=== PATIENT | female | born 1970 | race Caucasian/White ===

== ENCOUNTER 2019-02-04 12:23 | Outpatient (CLI) | payer BC ==
[~2019-02-04 12:23] MED LIST: DEXL60CA3 PO; DICY10CA88 PO; NITR100C6 PO; PHEN-716 PO; ZOF4T PO
== END 2019-02-04 23:59 | disposition home or self-care (01) ==
LOC: RAD 12:23
PROVIDERS: ATTEND Psychiatry & Neurology Neurology
DX: R42 Dizziness and giddiness (principal); R47.81 Slurred speech; J45.909 Unspecified asthma, uncomplicated; Z88.0 Allergy status to penicillin; Z88.8 Allergy status to other drugs, medicaments and biological substances
CPT/HCPCS: 95816

== ENCOUNTER 2020-08-22 15:57 | Emergency (ER) | payer BC, OTHER ==
[~2020-08-22] VITALS: Ht 157.5 cm; Wt 55.8 kg
[2020-08-22 16:09] VITALS: BP 124/81
[2020-08-22] MEDS ORDERED: CYCL-1 PO (17:43)
[2020-08-22] MEDS ORDERED: ONDA4TAB6 PO (17:43)
== END 2020-08-22 17:56 | disposition home or self-care (01) ==
LOC: ER 15:59
DX: S06.0X9A Concussion with loss of consciousness of unspecified duration, initial encounter (principal); S13.4XXA Sprain of ligaments of cervical spine, initial encounter; M54.2 Cervicalgia; R51.9 Headache, unspecified; F41.9 Anxiety disorder, unspecified; Z87.440 Personal history of urinary (tract) infections; Z90.710 Acquired absence of both cervix and uterus; Z90.49 Acquired absence of other specified parts of digestive tract; Z98.890 Other specified postprocedural states; Z88.0 Allergy status to penicillin; Z88.8 Allergy status to other drugs, medicaments and biological substances; Z79.899 Other long term (current) drug therapy; V87.7XXA Person injured in collision between other specified motor vehicles (traffic), initial encounter; Y93.89 Activity, other specified; Y92.89 Other specified places as the place of occurrence of the external cause; Y99.8 Other external cause status
CPT/HCPCS: 70450; 72125; 99285

== ENCOUNTER 2022-12-19 20:37 | Inpatient (IN) | payer BC, OTHER ==
[~2022-12-19] VITALS: Ht 162.6 cm; Wt 59.7 kg
[~2022-12-19 20:37] MED LIST changes: +CYCL-1 PO; +ONDA4TAB6 PO
[2022-12-19] MEDS ORDERED: normal saline 1000ML IV soln IVB ONE ×2 (20:50→22:35)
[2022-12-19 21:14] LABS: BASOPHILS # (AUTO) 0.1 X10'3 (0-0.2); EOSINOPHILS # (AUTO) 0.1 X10'3 (0-0.9); EOSINOPHILS % (AUTO) 0.9 % (0-6); HEMATOCRIT 34.7 % (35.0-45.0); HEMOGLOBIN 11.6 g/dl (12.0-16.0); LYMPHOCYTES % (AUTO) 44.7 % (21-51); MEAN CORPUSCULAR HGB CONC 33.5 g/dL (33.0-36.5); MEAN CORPUSCULAR VOLUME 98.4 FL (78-98); MEAN PLATELET VOLUME 7.2 FL (7.4-10.4); MONOCYTES # (AUTO) 0.6 X10'3 (0-0.9); MONOCYTES % (AUTO) 8.4 % (2-12); NEUTROPHILS # (AUTO) 3.1 X10'3 (1.8-7.7); PLATELET COUNT 310 X10'3 (140-440); RED BLOOD COUNT 3.53 X10'6 (4.20-5.60); WHITE BLOOD COUNT 6.8 X10'3 (4.5-11.0)
[2022-12-19 21:31] LABS: ALANINE AMINOTRANSFERASE 12 U/L (12-78); ALBUMIN 2.9 G/DL (3.4-5.0); ALKALINE PHOSPHATASE 49 IU/L (46-116); ANION GAP 15 (8-16); ASPARTATE AMINO TRANSFERASE 14 U/L (10-37); BILIRUBIN,TOTAL 0.2 MG/DL (0.1-1.0); BLOOD UREA NITROGEN 11 MG/DL (7-18); BUN/CREATININE RATIO 14.5 (6.6-38.0); CALCIUM 6.9 MG/DL (8.5-10.1); CHLORIDE 115 MMOL/L (99-107); CREATININE 0.76 MG/DL (0.40-0.90); GLUCOSE 129 MG/DL (70-104); SODIUM 146 MMOL/L (135-145); TOTAL CARBON DIOXIDE 16.3 MMOL/L (24-32); TOTAL PROTEIN 5.7 G/DL (6.4-8.2); eGFR 80 ML/MIN
[2022-12-19 21:32] LABS: ACETAMINOPHEN < 2.0 UG/ML (10-30); ETHANOL 0.132 GM/DL (0.0-0.010)
[2022-12-19 21:42] LABS: POTASSIUM 2.8 MMOL/L (3.5-5.1)
[2022-12-19] MEDS ORDERED: magnesium 2GM in 50ml NS 50 ML IV ONE (21:50)
[2022-12-19] MEDS ORDERED: potassium CL 10mEq/100ml bag 100 ML IV SCH (21:50)
[2022-12-19] MEDS ORDERED: glycopyrrolate 0.2mg/ml inj IV ONE (22:10)
[2022-12-19] MEDS ORDERED: potassium Cl 40MEQ/1/2NS 520ml 520 ML IV ONE (22:15)
[2022-12-19] MEDS ORDERED: hydrocortisone sod succ/PF 250mg/2ml inj. IV ONE (22:30)
--- NOTE | 2022-12-19 22:35 | NUR ---
MD AWARE OF VS 1LNS VO.
[2022-12-19] MEDS ORDERED: normal saline 1000ml 1,000 ML IVB ONE (22:40)
[2022-12-19] MEDS ORDERED: hydrocortisone sod succ/PF 100mg/2ml inj. IV ONE (22:40)
--- NOTE | 2022-12-19 23:20 | NUR ---
Provider aware of hypotension, continue medications as ordered. No further interventions advised. patient aware urine is needed, patient refuses catheter. Patient wants to walk to or get up to go to . Patient advised BP is low, concerned for hypotensive episode with standing/ambulation.
[2022-12-19] MEDS ORDERED: ondansetron/PF 4mg/2ml inj IV ONE (23:50)
[2022-12-20] VITALS (10 sets, daily range): BP systolic 95–111; BP diastolic 42–61
[2022-12-20] MEDS ORDERED: LEVOTHYROXINE SODIUM 100 MCG/5 ML injection IV ONE (00:10)
[2022-12-20 01:11] LABS: URINE HCG NEGATIVE (NEG)
[2022-12-20 01:14] LABS: CLARITY,URINE CLOUDY (Clear); COLOR,URINE YELLOW (Yellow); GLUCOSE, URINE NEGATIVE (Neg); KETONES,URINE 15 mg/dl (Neg); LEUKOCYTE ESTERASE ,URINE NEGATIVE (Neg); NITRITES, URINE NEGATIVE (Neg); OCCULT BLOOD,URINE SMALL (Neg); PROTEIN,URINE 30 mg/dl (Neg); UROBILINOGEN,URINE 0.2 E.U/dL (0.2-1.0)
--- NOTE | 2022-12-20 01:14 | NUR ---
Personal belongings labeled and palced inside left lower locker in room 27 of overflow. Patient BP remains low, provider is aware.
[2022-12-20] MEDS ORDERED: glucagon, human recombinant 1mg kit IV ONE ×2 (01:15→04:15)
[2022-12-20] MEDS ORDERED: normal saline 1000ml 1,000 ML IV ONE (01:15)
[2022-12-20 01:18] LABS: URINE AMPHETAMINE SCREEN NEGATIVE (Neg); URINE BARBITUATE SCREEN NEGATIVE (Neg); URINE BENZODIAZEPINES SCREEN NEGATIVE (Neg); URINE COCAINE SCREEN NEGATIVE (Neg); URINE METHADONE SCREEN NEGATIVE (Neg); URINE OPIATE SCREEN NEGATIVE (Neg); URINE PHENCYCLIDINE SCREEN NEGATIVE (Neg)
[2022-12-20 01:21] LABS: UA COLLECTION TYPE NON-SPECIFIED
[2022-12-20 01:24] LABS: BACTERIA,URINE 2+ /HPF (Neg); MUCUS STRANDS FEW /LPF (Neg); SQUAMOUS EPITHELIAL CELL,UR MODERATE /LPF (FEW)
[2022-12-20 01:25] LABS: AMORPHOUS URATES 1+; FINE GRANULAR CAST 0-3 /LPF (NEGATIVE); TRANSITIONAL EPI CELLS,URINE FEW /HPF
[2022-12-20] MEDS ORDERED: CALCIUM GLUC 1gm/50ml NACL,iso 50 ML IV ONE ×5 (01:31→05:20)
[2022-12-20] MEDS ORDERED: ondansetron/PF 4mg/2ml inj IV ONE ×2 (01:55→03:15)
--- NOTE | 2022-12-20 02:12 | NUR ---
Poison control contacted at this time and all pertinent medical information reviewed. All medications given were reviewed, they state we are doing correct electrolyte replacement are being done, recommend short time dosing of pressors, they recommend levophed.
--- NOTE | 2022-12-20 02:27 | NUR ---
Patient educated about risk of running levophed through peripheral IV, patient is initially apprehensive to start central line after discussion with ER attending. Patient will call family to further discuss risks and decide at later time. Patient also advised singleton catheter, states she is curently unwilling to do this.
[2022-12-20] MEDS: NORepinephrine 8mg/ 250ml NS 250 ML IV SCH ×7 (02:28→19:45)
[2022-12-20 02:41] LABS: MAGNESIUM 1.6 MG/DL (1.5-2.4); PHOSPHORUS 1.8 MG/DL (2.3-4.5)
[2022-12-20] MEDS ORDERED: potassium phosphate inj 30 MMOL in normal saline 250ml IV soln 250 ML IV ONE (02:50)
[2022-12-20] MEDS ORDERED: insulin regular, human 10 units/0.1 ml syringe IV ONE (03:10)
[2022-12-20] MEDS ORDERED: calcium gluconate inj. 3 GM in normal saline 100ml IV soln 100 ML IV ONE (03:10)
[2022-12-20] MEDS ORDERED: glucagon, human recombinant 4 MG in normal saline 100ml IV soln 100 ML IV ONE ×2 (03:10)
[2022-12-20] MEDS ORDERED: dextrose 50%-water 50ml dispensing syringe IV ONE ×3 (03:10→05:55)
[2022-12-20] MEDS ORDERED: potassium phosphate inj 30 MMOL in normal saline 500ml IV soln 500 ML IV ONE (03:39)
--- NOTE | 2022-12-20 04:35 | NUR ---
Orders clarified with provider, patient is to get 4mg glucagon, 3g calcium gluconate. This is what will be given. There are many unused orders and duplicate orders on DEC, provider aware, I am verbally told to give the above doses and this is what will be given.
[2022-12-20] MEDS ORDERED: calcium chloride 100 MG/1 ML inj IV STA (04:45)
[2022-12-20] MEDS ORDERED: insulin regular, human 10 units/0.1 ml syringe IV STA (04:45)
[2022-12-20] MEDS ORDERED: dextrose 50%-water 50ml dispensing syringe IV STA (04:45)
[2022-12-20] MEDS ORDERED: Insulin Reg/NS 100units/100mL 100 ML IV ONE (04:55)
[2022-12-20] MEDS ORDERED: sodium chloride inj. 154 MEQ in Dextrose 10%-water IV solution 961.5 ML IV SCH (05:00)
[2022-12-20] MEDS ORDERED: CefTRIAXone 2gm/D5W 50ml BAG 50 ML IV SCH (05:18)
[2022-12-20] MEDS ORDERED: magnesium Cl slow-release 64mg tablet PO PRN (05:20)
[2022-12-20] MEDS ORDERED: potassium Cl 40MEQ/1/2NS 520ml 520 ML IV PRN (05:20)
[2022-12-20] MEDS ORDERED: acetaminophen 325mg tablet PO PRN (05:20)
[2022-12-20] MEDS ORDERED: mag hydrox/Alum hydrox/simeth 30ml oral suspension PO PRN (05:20)
[2022-12-20] MEDS ORDERED: ondansetron/PF 4mg/2ml inj IV PRN ×2 (05:20→16:30)
[2022-12-20] MEDS ORDERED: potassium Cl 20 mEq SR tablet PO PRN ×2 (05:20)
[2022-12-20] MEDS ORDERED: magnesium hydroxide 30ml (MOM) UD suspension PO PRN (05:20)
--- NOTE | 2022-12-20 05:51 | NUR ---
Patient refuses NG tube, patient states she will consider NG tube but does not see clear benefit at this time.
[2022-12-20] MEDS: DEXTROSE 50% IV SCH ×2 (06:28→09:40)
--- NOTE | 2022-12-20 06:50 | NUR ---
Patient received on bed awake,denies dizziness,patient is alert and oriented, bg 218mg/dl. Spoke to Poison control/Vimal, updated about patient's vital signs.Per Vimal, when BG is decreased, calcium channel kaushik is wearing off.We will monitor.
--- NOTE | 2022-12-20 07:49 | NUR ---
No noted orders for d50 and insulin drip,medications stopped at this time.Pending morning labs.Will call MD when am labs comes back together with order clarification for insulin and d50 drips.
[2022-12-20] MEDS ORDERED: etomidate 2mg/ml inj. ONE (08:00)
[2022-12-20] MEDS: docusate sod 100mg capsule PO SCH ×2 (08:00→19:59)
[2022-12-20] MEDS: K and/or MAG REPLACEMENT MC SCH ×2 (08:00→19:59)
[2022-12-20] MEDS ORDERED: sod chloride 0.9% 10ml flush syringe IV ONE (08:00)
[2022-12-20 08:49] LABS: ALBUMIN 2.8 G/DL (3.4-5.0); ANION GAP 16 (8-16); BLOOD UREA NITROGEN 18 MG/DL (7-18); BUN/CREATININE RATIO 13.1 (6.6-38.0); CALCIUM 11.2 MG/DL (8.5-10.1); CHLORIDE 114 MMOL/L (99-107); CREATININE 1.37 MG/DL (0.40-0.90); GLUCOSE 213 MG/DL (70-104); MAGNESIUM 2.1 MG/DL (1.5-2.4); PHOSPHORUS 4.5 MG/DL (2.3-4.5); SODIUM 140 MMOL/L (135-145); eGFR 41 ML/MIN
--- NOTE | 2022-12-20 09:00 | NUR ---
When RN spoke to Dr. Allen MD ordered to "re start everything", will re start D50 50 ml/hour and insulin drip 50 units/hour.
--- NOTE | 2022-12-20 09:00 | NUR ---
Called Dr. Villa regarding re starting D 50 and insulin drip since no order at this time.Made aware about c02 10 and ca 11.2.Md ordered to Re start insulin drip and D50.Ordered abg, bmp, mag and phos Q6 hours.
[2022-12-20] MEDS ORDERED: Insulin Reg/NS 100units/100mL 100 ML IV SCH (09:05)
--- NOTE | 2022-12-20 09:27 | NUR ---
no order noted for K phosphate, drip paused at this time. Dr. Michel contacted 3x but not answering.
--- NOTE | 2022-12-20 09:42 | NUR ---
Patient remained alert and oriented, no reported discomfort at this time.Will recheck bg after 15 minutes.
--- NOTE | 2022-12-20 09:42 | NUR ---
Insulin drip held at this time bg 54mg/dl.
--- NOTE | 2022-12-20 09:52 | NUR ---
Attempted to call Dr. Villa regarding medication orders but unable to leave a message becasue mailbox is full.This is RN's 5th attempt to call MD,will speak to CLINTON Spivey.
--- NOTE | 2022-12-20 10:04 | NUR ---
Dr. Villa at bedside,ordered as follows: MAp goal of 65,start NS 100ml/hour, ok to re start insulin if bg reaches 100, check bg q15 minutes.
[2022-12-20] MEDS: Insulin Reg/NS 100units/100mL 100 ML IV SCH ×6 (10:09→22:52)
[2022-12-20] MEDS ORDERED: normal saline 1000ml 1,000 ML IV SCH (10:10)
--- NOTE | 2022-12-20 10:21 | NUR ---
discontinued the iv of the back of the right hand per pt request.
--- NOTE | 2022-12-20 10:33 | NUR ---
RN unable to place a verbal order for Dextrose 50%, spoke to Maritza/pharmacist,will put the order in for dextrose 50% at 100ml /hour.
--- NOTE | 2022-12-20 10:41 | NUR ---
Called Dr. Villa regarding patient's bg 172mg/dl, MD made aware that insulin drip was re started 5 units/hour due to bg 54mg/dl ,MD ordered 10 units/hour of insulin at this time and to call him after an hour for the BG reading.
[2022-12-20] MEDS: WATER IV SCH ×7 (11:00→22:26)
[2022-12-20] MEDS: DEXTROSE IV SCH ×7 (11:00→22:26)
[2022-12-20] MEDS: WATER DEXTROSE IV SCH ×7 (11:00→22:26)
[2022-12-20] MEDS ORDERED: LEVO88TA7 PO (11:25)
[2022-12-20] MEDS ORDERED: LIOT25TA12 PO (11:25)
[2022-12-20] MEDS ORDERED: TOPI25TA49 PO (11:25)
[2022-12-20] MEDS ORDERED: PROG200C11 PO (11:25)
[2022-12-20] MEDS ORDERED: ESTR1TAB28 PO (11:25)
--- NOTE | 2022-12-20 11:30 | NUR ---
RT at bedside.
[2022-12-20] MEDS ORDERED: GABA300C PO (11:35)
[2022-12-20] MEDS ORDERED: FLUO-167 PO (11:35)
--- NOTE | 2022-12-20 11:44 | NUR ---
Received an order to increase insulin drip to 20 units/hour per Dr. Villa bg 221mg/dl at this time.
[2022-12-20 11:45] LABS: ABG BASE EXCESS -16.5 mmol/L (-2.0-2.0); ABG HCO3 9.5 mmol/L (22.0-26.0); ABG OXYGEN SATURATION 92.7 % (94-97); ABG PCO2 (T) 24.3 mmHg (32.0-45.0); ABG PO2 (T) 70.5 mmHg (75.0-100.0); ALLEN'S TEST POSITIVE; FCOHb 0.3 % (0.0-3.9); FLOW 4 L/min; FMetHb 0.4 % (0.0-1.5); FO2Hb 92.1 % (94-97); PATIENT TEMPERATURE 37.4; TOTAL HEMOGLOBIN 12.7 G/dl (12.0-16.0)
--- NOTE | 2022-12-20 12:19 | NUR ---
patient asleep at this time.We will monitor.
--- NOTE | 2022-12-20 12:46 | NUR ---
Poison control Ricky spoke to RN, states bg goal is 150mg/dl and above, bg at this time is 216mg/dl. We will monitor.Still awaiting for an icu bed.
[2022-12-20 13:06] LABS: ALBUMIN 2.6 G/DL (3.4-5.0); ANION GAP 13 (8-16); BLOOD UREA NITROGEN 19 MG/DL (7-18); BUN/CREATININE RATIO 16.8 (6.6-38.0); CALCIUM 9.7 MG/DL (8.5-10.1); CHLORIDE 112 MMOL/L (99-107); CREATININE 1.13 MG/DL (0.40-0.90); GLUCOSE 236 MG/DL (70-104); MAGNESIUM 1.7 MG/DL (1.5-2.4); PHOSPHORUS 3.2 MG/DL (2.3-4.5); POTASSIUM 4.1 MMOL/L (3.5-5.1); SODIUM 138 MMOL/L (135-145); eGFR 51 ML/MIN
--- NOTE | 2022-12-20 13:44 | NUR ---
Critical lab result: CO2 13.0. RN notified Dr. Villa and primary RN [place].
--- NOTE | 2022-12-20 14:49 | NUR ---
No change of condition, remains oriented to person, time, place and event. Still awaiting for ICU bed,We will monitor.
[2022-12-20] MEDS ORDERED: LORazepam 2 mg/ml vial IV PRN (15:40)
[2022-12-20 16:16] LABS: ALBUMIN 2.6 G/DL (3.4-5.0); ANION GAP 14 (8-16); BLOOD UREA NITROGEN 19 MG/DL (7-18); BUN/CREATININE RATIO 18.1 (6.6-38.0); CALCIUM 9.2 MG/DL (8.5-10.1); CHLORIDE 113 MMOL/L (99-107); CREATININE 1.05 MG/DL (0.40-0.90); GLUCOSE 146 MG/DL (70-104); MAGNESIUM 1.6 MG/DL (1.5-2.4); PHOSPHORUS 3.2 MG/DL (2.3-4.5); POTASSIUM 3.8 MMOL/L (3.5-5.1); SODIUM 139 MMOL/L (135-145); eGFR 55 ML/MIN
[2022-12-20 16:21] LABS: TOTAL CARBON DIOXIDE 11.8 MMOL/L (24-32)
--- NOTE | 2022-12-20 16:29 | NUR ---
PRIMARY RN WATCHING THE PT AT BEDSIDE {HAVING HALLUCINATION AND VERY ANXIOUS } AND NAUSEOUS BUSINESS SERVICES COORDINATOR WENT TO SEE DR MARTE TO SBAR PT CONDITION ,VERBAL ORDERS TO GIVE ATIVIAN 2MG IV ONCE AND ZOFRAN 4 MG Q6 HR PRN FOR N/V.WILL FOLLOW THE ORDERS.
[2022-12-20] MEDS ORDERED: LORazepam 2 mg/ml vial IV ONE (16:30)
--- NOTE | 2022-12-20 16:32 | NUR ---
patient started becoming anxious, keeps getting out of bed, pulling lines. aware,new order noted.
--- NOTE | 2022-12-20 17:07 | NUR ---
Start precedex at 0.7mcg/mg/hour per Dr. Villa.
--- NOTE | 2022-12-20 17:07 | NUR ---
Patient remained anxious, environmental services technician at bedside, Dr. Villa at bedside,received an order for Precedex drip from Dr. Villa. called pharmacy to deliver medication to ed.
--- NOTE | 2022-12-20 17:08 | NUR ---
Called pharmacy,no levophed and D50 from the [facility].
[2022-12-20] MEDS ORDERED: folic acid 1mg/0.2ml inj IV STA (17:47)
[2022-12-20] MEDS ORDERED: thiamine 100mg/ml 2ml inj. IV STA (17:47)
--- NOTE | 2022-12-20 17:55 | NUR ---
Started patient on precedex.
[2022-12-20] MEDS: dexmedetomidin/NS 400mcg/100ml 100 ML IV SCH (17:56)
--- NOTE | 2022-12-20 18:04 | NUR ---
Received a verbal order for thiamin 100mg ivp, folic acid 1mg ivp, and banana bag-Called the pharmacy since RN does not know how to put order for banana bag, pharmacist to speak to supervisor home energy consultant then call ED since she is unsure as well.Will notify next shift.
--- NOTE | 2022-12-20 18:11 | NUR ---
Called Dr. Villa since pharmacy does not have banana bag anymore, MD blanco to give folic acid and thiamin ivp only.No folic acid from the [facility]ni.
[2022-12-20] MEDS ORDERED: SODIUM BICARB 150mEq/D5W 1L 1,000 ML IV ONE (18:30)
--- NOTE | 2022-12-20 18:34 | NUR ---
pt became purple and having difficulty breathing, BVM.
--- NOTE | 2022-12-20 18:36 | NUR ---
ESTUARDO AT BEDSIDE TO INTUBATE.
[2022-12-20] MEDS ORDERED: propofol 1000mg/100ml bottle 100 ML IV SCH (18:40)
[2022-12-20] MEDS: SODIUM BICARB 150mEq/D5W 1L 1,000 ML IV SCH (18:47)
[2022-12-20] MEDS: propofol 1000mg/100ml bottle 100 ML IV SCH (18:48)
[2022-12-20 19:00] LABS: ABG HCO3 10.3 mmol/L (22.0-26.0); ABG PCO2 (T) 44.8 mmHg (32.0-45.0); ABG PO2 (T) 63.5 mmHg (75.0-100.0); ALLEN'S TEST POSITIVE; FCOHb 0.3 % (0.0-3.9); FMetHb 0.2 % (0.0-1.5); FO2Hb 87.6 % (94-97); PATIENT TEMPERATURE 36.4; PEEP 5 cm H2O; RESPIRATORY RATE 20 b/min; TIDAL VOLUME 400 mL; TOTAL HEMOGLOBIN 12.1 G/dl (12.0-16.0)
[2022-12-20 19:24] LABS: ALBUMIN 2.5 G/DL (3.4-5.0); ANION GAP 14 (8-16); BLOOD UREA NITROGEN 19 MG/DL (7-18); BUN/CREATININE RATIO 18.8 (6.6-38.0); CALCIUM 8.6 MG/DL (8.5-10.1); CHLORIDE 112 MMOL/L (99-107); CREATININE 1.01 MG/DL (0.40-0.90); GLUCOSE 221 MG/DL (70-104); MAGNESIUM 1.6 MG/DL (1.5-2.4); PHOSPHORUS 5.8 MG/DL (2.3-4.5); POTASSIUM 4.2 MMOL/L (3.5-5.1); SODIUM 139 MMOL/L (135-145); eGFR 58 ML/MIN
[2022-12-20 19:31] LABS: TOTAL CARBON DIOXIDE 12.7 MMOL/L (24-32)
--- NOTE | 2022-12-20 20:36 | NUR ---
Attempted 2nd call to Dr. Villa to report abg with ph of 6.9 to see if he'd like to give more bicarb. Again no answer (x2 calls) and his voicemail is full. Pt's RR was increased from that and we'll recheck an ABG later.
[2022-12-20] MEDS ORDERED: sodium bicarbonate (8.4%) 1 mEq/ml syringe IV ONE (20:45)
--- NOTE | 2022-12-20 21:18 | NUR ---
I spoke to Dr. aguillon, he wanted 2 amps of bicarb given (done) and a repeat ABG at 2200. I just got off the phone with poison control they were happy with the therapies she is on currently.
[2022-12-20 21:33] LABS: ALANINE AMINOTRANSFERASE 82 U/L (12-78); ALBUMIN 2.1 G/DL (3.4-5.0); ALBUMIN/GLOBULIN RATIO 0.9 (1.1-1.5); ALKALINE PHOSPHATASE 48 IU/L (46-116); ANION GAP 9 (8-16); ASPARTATE AMINO TRANSFERASE 61 U/L (10-37); BILIRUBIN,TOTAL 0.2 MG/DL (0.1-1.0); BLOOD UREA NITROGEN 18 MG/DL (7-18); BUN/CREATININE RATIO 18.6 (6.6-38.0); CHLORIDE 113 MMOL/L (99-107); CREATININE 0.97 MG/DL (0.40-0.90); GLUCOSE 315 MG/DL (70-104); MAGNESIUM 1.7 MG/DL (1.5-2.4); PHOSPHORUS 3.8 MG/DL (2.3-4.5); POTASSIUM 3.7 MMOL/L (3.5-5.1); SODIUM 142 MMOL/L (135-145); TOTAL CARBON DIOXIDE 19.6 MMOL/L (24-32); TOTAL PROTEIN 4.4 G/DL (6.4-8.2); eGFR 61 ML/MIN
[2022-12-20 21:57] LABS: ABG BASE EXCESS -13.4 mmol/L (-2.0-2.0); ABG HCO3 14.7 mmol/L (22.0-26.0); ABG OXYGEN SATURATION 90.4 % (94-97); ABG PCO2 (T) 39.9 mmHg (32.0-45.0); ABG PO2 (T) 55.9 mmHg (75.0-100.0); ALLEN'S TEST POSITIVE; FCOHb 0.2 % (0.0-3.9); FMetHb 0.3 % (0.0-1.5); FO2Hb 89.9 % (94-97); PATIENT TEMPERATURE 35.7; PEEP 5 cm H2O; RESPIRATORY RATE 24 b/min; TIDAL VOLUME 400 mL; TOTAL HEMOGLOBIN 11.4 G/dl (12.0-16.0)
[2022-12-20] MEDS ORDERED: furosemide 40mg/4ml inj IV ONE (22:15)
[2022-12-20] MEDS: ipratropium/albuterol 3ml nebule NEB PRN (22:30)
[2022-12-20] MEDS ORDERED: vancomycin 1000 MG in NS 250ml X 1 ER IV SCH (22:30)
--- NOTE | 2022-12-20 22:59 | NUR ---
Spoke to poison control pharmacist Kade regarding patients blood sugars. She's on D50 drip which is not even on their protocol, it's a D10 drip. I informed him her Blood Glucose is > 300 and asked if titrated the D50 down is ok, He recommended titrating it down but maintaining a blood sugar > 150. Will notify MD of this.
--- NOTE | 2022-12-20 23:14 | NUR ---
Unable to do admission work given patient's condition. Attempted calling the number on her face sheet for her spouse, no answer at this time.
[2022-12-20] MEDS: NORepinephrine inj. 32 MG in normal saline 250ml IV soln 218 ML IV SCH (23:30)
[2022-12-20] MEDS ORDERED: vasopressin inj. 40 UNIT in dextrose 5%-water 50ml 38 ML IV SCH (23:50)
[2022-12-21] VITALS (33 sets, daily range): BP systolic 76–111; BP diastolic 44–53
--- NOTE | 2022-12-21 00:01 | NUR ---
Spoke with Dr. Villa. He would like the D50 continued at 100ml/hr. He is aware she is currently at 0.5unit/kg/hr on insulin. He would like to titrate the insulin up by 0.5units/kg/hr to maintain a BG of around 150.
[2022-12-21] MEDS: vasopressin inj. 40 UNIT in normal saline 50ml IV soln 38 ML IV SCH ×3 (00:15→18:49)
[2022-12-21] MEDS: heparin, porcine 5000 units/ml vial SQ SCH ×3 (00:16→15:50)
[2022-12-21] MEDS: propofol 1000mg/100ml bottle 100 ML IV SCH ×3 (00:26→07:37)
[2022-12-21 00:59] LABS: ALBUMIN 2.1 G/DL (3.4-5.0); ANION GAP 11 (8-16); BLOOD UREA NITROGEN 17 MG/DL (7-18); BUN/CREATININE RATIO 16.2 (6.6-38.0); CALCIUM 7.9 MG/DL (8.5-10.1); CHLORIDE 111 MMOL/L (99-107); CREATININE 1.05 MG/DL (0.40-0.90); GLUCOSE 378 MG/DL (70-104); MAGNESIUM 1.4 MG/DL (1.5-2.4); PHOSPHORUS 2.3 MG/DL (2.3-4.5); POTASSIUM 3.2 MMOL/L (3.5-5.1); SODIUM 142 MMOL/L (135-145); TOTAL CARBON DIOXIDE 20.3 MMOL/L (24-32); eGFR 55 ML/MIN
[2022-12-21] MEDS: Insulin Reg/NS 100units/100mL 100 ML IV SCH ×16 (01:11→23:17)
[2022-12-21] MEDS: SODIUM BICARB 150mEq/D5W 1L 1,000 ML IV SCH ×4 (01:16→21:57)
[2022-12-21] MEDS: WATER DEXTROSE IV SCH ×12 (01:17→23:14)
[2022-12-21] MEDS: WATER IV SCH ×12 (01:17→23:14)
[2022-12-21] MEDS: DEXTROSE IV SCH ×12 (01:17→23:14)
[2022-12-21] MEDS: magnesium 4gm in 100ml NS 100 ML IV PRN ×2 (01:17→18:25)
[2022-12-21] MEDS: potassium Cl 40MEQ/270ML bag 270 ML IV PRN ×4 (02:06→22:00)
--- NOTE | 2022-12-21 02:33 | NUR ---
Over the past 2 hours pt has been getting dusky in the knees and hands, belly has been firming up as well. lactic acid checked, it was 4.4, previous was 2.1 Her abdominal pressure is 20. I'm waiting for an ABG result to call Dr. Villa
[2022-12-21 02:35] LABS: ABG BASE EXCESS -9.4 mmol/L (-2.0-2.0); ABG HCO3 17.7 mmol/L (22.0-26.0); ABG OXYGEN SATURATION 91.6 % (94-97); ABG PO2 (T) 65.5 mmHg (75.0-100.0); ALLEN'S TEST POSITIVE; FCOHb 0.3 % (0.0-3.9); FMetHb 0.3 % (0.0-1.5); FO2Hb 91.1 % (94-97); PEEP 5 cm H2O; RESPIRATORY RATE 24 b/min; TIDAL VOLUME 400 mL; TOTAL HEMOGLOBIN 10.8 G/dl (12.0-16.0)
--- NOTE | 2022-12-21 02:52 | NUR ---
Spoke to Dr. Villa. Notified him of Lactic Acid of 4.4, Bladder Pressure of 20, current vasopressor doses and UO and current ABG. No changes in therapy at this time. He said it is ok to stop titrating up the insulin drip now and leave it at 108 units/hr. I can start slowly turning down the D50 now per him, Still maintain a BG of > 150 though. No orders regarding the Lactic acid or high Bladder Pressure.
--- NOTE | 2022-12-21 03:06 | NUR ---
Dr aguillon called back and spoke to charge nurse. Apparently he would now like the pt to just run at 1unit/kg/hr (68units/hr) and we can now cut the D50 in half as well to conserve on fluid. See my previous notes regarding my discussing this with him and the pharmacist from poison control.
[2022-12-21 03:43] LABS: BASOPHILS % (AUTO) 0.2 % (0-1); EOSINOPHILS % (AUTO) 0 % (0-6); HEMATOCRIT 29.8 % (35.0-45.0); HEMOGLOBIN 9.9 g/dl (12.0-16.0); LYMPHOCYTES % (AUTO) 9.5 % (21-51); MEAN CORPUSCULAR HEMOGLOBIN 32.7 PG (27.0-31.0); MEAN CORPUSCULAR HGB CONC 33.2 g/dL (33.0-36.5); MEAN CORPUSCULAR VOLUME 98.6 FL (78-98); MONOCYTES # (AUTO) 1.6 X10'3 (0-0.9); MONOCYTES % (AUTO) 7.8 % (2-12); NEUTROPHILS # (AUTO) 17.1 X10'3 (1.8-7.7); NEUTROPHILS % (AUTO) 82.5 % (42-75); PLATELET COUNT 242 X10'3 (140-440); RED BLOOD COUNT 3.02 X10'6 (4.20-5.60); RED CELL DISTRIBUTION WIDTH 13.4 % (11.5-14.5); WHITE BLOOD COUNT 20.7 X10'3 (4.5-11.0)
[2022-12-21 03:54] LABS: ALANINE AMINOTRANSFERASE 79 U/L (12-78); ALBUMIN 2.1 G/DL (3.4-5.0); ALBUMIN/GLOBULIN RATIO 0.9 (1.1-1.5); ALKALINE PHOSPHATASE 46 IU/L (46-116); ANION GAP 10 (8-16); ASPARTATE AMINO TRANSFERASE 57 U/L (10-37); BILIRUBIN,TOTAL 0.1 MG/DL (0.1-1.0); BLOOD UREA NITROGEN 17 MG/DL (7-18); BUN/CREATININE RATIO 16.5 (6.6-38.0); CALCIUM 7.5 MG/DL (8.5-10.1); CHLORIDE 109 MMOL/L (99-107); CREATININE 1.03 MG/DL (0.40-0.90); GLUCOSE 315 MG/DL (70-104); MAGNESIUM 2.6 MG/DL (1.5-2.4); PHOSPHORUS 2.6 MG/DL (2.3-4.5); POTASSIUM 3.1 MMOL/L (3.5-5.1); SODIUM 140 MMOL/L (135-145); TOTAL CARBON DIOXIDE 20.9 MMOL/L (24-32); TOTAL PROTEIN 4.4 G/DL (6.4-8.2); TRIGLYCERIDES 184 MG/DL (20-135); eGFR 56 ML/MIN
[2022-12-21 06:10] LABS: ALBUMIN 2.1 G/DL (3.4-5.0); ANION GAP 12 (8-16); BLOOD UREA NITROGEN 16 MG/DL (7-18); BUN/CREATININE RATIO 18.2 (6.6-38.0); CALCIUM 7.5 MG/DL (8.5-10.1); CHLORIDE 112 MMOL/L (99-107); CREATININE 0.88 MG/DL (0.40-0.90); GLUCOSE 112 MG/DL (70-104); MAGNESIUM 2.3 MG/DL (1.5-2.4); PHOSPHORUS 2.4 MG/DL (2.3-4.5); POTASSIUM 3.6 MMOL/L (3.5-5.1); SODIUM 145 MMOL/L (135-145); TOTAL CARBON DIOXIDE 20.9 MMOL/L (24-32); eGFR 68 ML/MIN
--- NOTE | 2022-12-21 07:05 | NUR ---
Patient with increased pink/frothy sputum and decreasing o2 saturation. Dr. Villa called with orders for 40mg IV Lasix now and 20mg IV Lasix q6h. Okay to increase PEEP from 5 to 10.
[2022-12-21] MEDS ORDERED: furosemide 40mg/4ml inj IV STA (07:07)
[2022-12-21] MEDS ORDERED: furosemide 40mg/4ml inj ONE (07:11)
[2022-12-21] MEDS: NORepinephrine inj. 32 MG in normal saline 250ml IV soln 218 ML IV SCH ×3 (07:38→23:16)
[2022-12-21 07:58] LABS: ABG BASE EXCESS -7.6 mmol/L (-2.0-2.0); ABG HCO3 19.4 mmol/L (22.0-26.0); ABG OXYGEN SATURATION 89.4 % (94-97); ABG PCO2 (T) 46.9 mmHg (32.0-45.0); ABG PO2 (T) 56.9 mmHg (75.0-100.0); FCOHb 0.2 % (0.0-3.9); FMetHb 0.5 % (0.0-1.5); FO2Hb 88.8 % (94-97); PATIENT TEMPERATURE 37.8; PEEP 10 cm H2O; RESPIRATORY RATE 24 b/min; TIDAL VOLUME 400 mL; TOTAL HEMOGLOBIN 11.2 G/dl (12.0-16.0)
[2022-12-21] MEDS: K and/or MAG REPLACEMENT MC SCH ×2 (08:00→20:00)
[2022-12-21] MEDS: docusate sod 100mg capsule PO SCH ×2 (08:00→20:00)
[2022-12-21] MEDS ORDERED: fentaNYL/PF 50MCG/1 ML 2ML syringe IV PRN (08:10)
--- NOTE | 2022-12-21 08:30 | NUR ---
Decreased abd pressure of 18 after 700ml gastric content removed; MD aware of elevated abd pressures.
[2022-12-21] MEDS: FENTANYL-0.9 % NACL/PF 100 ML IV PRN ×3 (08:46→23:15)
[2022-12-21] MEDS ORDERED: furosemide 40mg/4ml inj IV ONE (09:50)
[2022-12-21] MEDS: dexmedetomidin/NS 400mcg/100ml 100 ML IV SCH (11:20)
--- NOTE | 2022-12-21 11:30 | NUR ---
Initial: Pt admit for OD with SI and hypotension. Pt currently intubated and sedated with Propofol visualized at bedside to be running at 4.89 mL/hr providing 129 kcal/day. OGT in place though no TF consult at this time. TF recs below for if expected prolonged intubation and to receive nutrition support. Will adjust recs as appropriate based on Propofol rate and once a scaled wt is obtained. Noted pt with EtOH level of 0.132 mg/dL on admit, pt received one time dose of Thiamine and Folic acid though would benefit from routine supplementation with additional routine MVI. LBM unknown. Routine bowel care available though held at this time d/t NPO status. Will continue to follow closely. Recommendations: 1) IF TF and Propofol at 4.89 mL/hr (129 kcal/day), continuous Vital AF with 50 mL/hr goal rate. Begin at 20 mL/hr and advance by 30 mL Q8H as tolerated to goal rate 2) IF TF, additional 100 mL water flush Q4H; monitor serum Na 3) Monitor Propofol rate and scaled wt and need to adjust recs 4) IF TF, prealbumin q Friday/; daily scaled weights 5) Consider routine Thiamine, Folic acid, and MVI for EtOH with elevated MCV 6) Routine bowel care Addendum: 12/21/22 at [address] Amended: Links added.
[2022-12-21 11:52] LABS: ABG BASE EXCESS -5.1 mmol/L (-2.0-2.0); ABG HCO3 22.7 mmol/L (22.0-26.0); ABG OXYGEN SATURATION 89.3 % (94-97); ABG PCO2 (T) 56.5 mmHg (32.0-45.0); ABG PO2 (T) 58.5 mmHg (75.0-100.0); FCOHb 0.3 % (0.0-3.9); FMetHb 0.3 % (0.0-1.5); FO2Hb 88.8 % (94-97); PATIENT TEMPERATURE 37.7; PEEP 10 cm H2O; RESPIRATORY RATE 24 b/min; TIDAL VOLUME 400 mL; TOTAL HEMOGLOBIN 11.4 G/dl (12.0-16.0)
--- NOTE | 2022-12-21 12:30 | NUR ---
Patient's PF ratio <150 on ABG and decreased pH; orders to prone patient.
[2022-12-21] MEDS ORDERED: furosemide 20 MG/2 ML vial IV SCH (13:00)
[2022-12-21 13:29] LABS: ALBUMIN 1.9 G/DL (3.4-5.0); ANION GAP 7 (8-16); BLOOD UREA NITROGEN 12 MG/DL (7-18); BUN/CREATININE RATIO 14.1 (6.6-38.0); CALCIUM 6.8 MG/DL (8.5-10.1); CHLORIDE 109 MMOL/L (99-107); CREATININE 0.85 MG/DL (0.40-0.90); GLUCOSE 133 MG/DL (70-104); MAGNESIUM 1.8 MG/DL (1.5-2.4); PHOSPHORUS 3.5 MG/DL (2.3-4.5); POTASSIUM 3.5 MMOL/L (3.5-5.1); SODIUM 143 MMOL/L (135-145); TOTAL CARBON DIOXIDE 27.3 MMOL/L (24-32); eGFR 71 ML/MIN
[2022-12-21] MEDS: furosemide 40mg/4ml inj IV SCH ×2 (14:04→20:14)
[2022-12-21 16:21] LABS: ABG BASE EXCESS -2.2 mmol/L (-2.0-2.0); ABG HCO3 25.8 mmol/L (22.0-26.0); ABG OXYGEN SATURATION 90.1 % (94-97); ABG PCO2 (T) 62.3 mmHg (32.0-45.0); ABG PO2 (T) 58.4 mmHg (75.0-100.0); FCOHb 0.3 % (0.0-3.9); FMetHb 0.3 % (0.0-1.5); FO2Hb 89.6 % (94-97); PATIENT TEMPERATURE 37.6; PEEP 10 cm H2O; RESPIRATORY RATE 24 b/min; TIDAL VOLUME 400 mL; TOTAL HEMOGLOBIN 11.3 G/dl (12.0-16.0)
--- NOTE | 2022-12-21 17:46 | NUR ---
Patient double-stacking on the ventilator while prone; Dr. Villa with orders to paralyze the patient.
[2022-12-21 17:56] LABS: ALBUMIN 1.7 G/DL (3.4-5.0); ANION GAP 5 (8-16); BLOOD UREA NITROGEN 10 MG/DL (7-18); BUN/CREATININE RATIO 12.2 (6.6-38.0); CALCIUM 6.4 MG/DL (8.5-10.1); CHLORIDE 106 MMOL/L (99-107); CREATININE 0.82 MG/DL (0.40-0.90); GLUCOSE 164 MG/DL (70-104); MAGNESIUM 1.4 MG/DL (1.5-2.4); PHOSPHORUS 2.5 MG/DL (2.3-4.5); SODIUM 141 MMOL/L (135-145); TOTAL CARBON DIOXIDE 29.7 MMOL/L (24-32); eGFR 73 ML/MIN
--- NOTE | 2022-12-21 18:23 | NUR ---
Problems reprioritized. Patient report given, questions answered & plan of care reviewed with Vimal RAMOS.
[2022-12-21] MEDS: CISatracurium besylate inj. 100 MG in normal saline 100ml IV soln 90 ML IV PRN (18:26)
[2022-12-21] MEDS ORDERED: potassium Cl 40MEQ/270ML bag 270 ML IV ONE ×2 (19:00→21:00)
[2022-12-21 19:05] LABS: ABG HCO3 26.7 mmol/L (22.0-26.0); ABG OXYGEN SATURATION 82.4 % (94-97); ABG PCO2 (T) 68.9 mmHg (32.0-45.0); ABG PO2 (T) 47.9 mmHg (75.0-100.0); ALLEN'S TEST POSITIVE; FCOHb 0.3 % (0.0-3.9); FMetHb 0.4 % (0.0-1.5); FO2Hb 81.8 % (94-97); PATIENT TEMPERATURE 37.6; PEEP 10 cm H2O; RESPIRATORY RATE 24 b/min; TIDAL VOLUME 400 mL; TOTAL HEMOGLOBIN 11.2 G/dl (12.0-16.0)
--- NOTE | 2022-12-21 19:22 | NUR ---
Spoke with Dr. Villa regarding pt's current condition (decreased sats since paralytic started, hypotension on max vasopressors). Went over current ABG. He'd like to try Pressure Control while she's paralyzed, if it does not improve her he woul like to turn the paralytic off and try APRV. Regarding her hypotension he said I can start Neosynephrine if her BP drops below what it currently is but he doubts it will help her much.
--- NOTE | 2022-12-21 20:00 | NUR ---
un able to assess pupils. Eyes swollen shut.
--- NOTE | 2022-12-21 20:25 | NUR ---
Pt's friends Eddie and Valerie (also friends of the ) came by, apparently Kemi had asked them to stop by. I called him at [facility] to confirm. I spoke with him on the phone in front of friends (he OK'd them hearing all information regarding her). I gave him a very honest opinion of her current condition and prognosis in that she is extremely sick on max support. He is contemplating going AMA to come see her. I encouraged him to take care of himself as well and that for now she is full code and we will give our best efforts to keep her alive but given her trajectory nothing is certain at this point. very sad but seemed to understand the gravity of the situation. Will update him t/o the night with any new changes in condition.
[2022-12-21 20:31] LABS: ABG BASE EXCESS 0.4 mmol/L (-2.0-2.0); ABG OXYGEN SATURATION 79.1 % (94-97); ABG PCO2 (T) 78.2 mmHg (32.0-45.0); ABG PO2 (T) 43.6 mmHg (75.0-100.0); FCOHb 0.3 % (0.0-3.9); FMetHb 0.2 % (0.0-1.5); FO2Hb 78.7 % (94-97); PATIENT TEMPERATURE 37.4; PEEP 10 cm H2O; RESPIRATORY RATE 24 b/min; TOTAL HEMOGLOBIN 11.6 G/dl (12.0-16.0)
--- NOTE | 2022-12-21 21:06 | NUR ---
Dr. Villa was updated on the new abg. orders to increase peep to 15. Son Tyson came and was allowed up, discussed his mother's current condition and prognosis, currently at bedside tearful.
--- NOTE | 2022-12-21 21:12 | NUR ---
Pt's A line BP has been decreasing, however the wave form is often poor and it is a difficult draw. Her NIBP cuff pressures have been staying normal at SBPs of 100-110 and MAP 65-70.
[2022-12-21] MEDS ORDERED: PHENYLephrine 10mg/ml inj. 50 MG in normal saline 250ml IV soln 245 ML IV PRN (22:15)
--- NOTE | 2022-12-21 23:00 | NUR ---
Pts OGT stopped putting out. Tried flushing it, flushes fine but unable to manually aspirate out. Could be do to the way she is prone. Will not instill anything untill morning CXR confirms its still in good position.
[2022-12-21] MEDS: piperacillin/tazo 3.375gm/50ml 50 ML IV SCH (23:18)
[2022-12-21] MEDS ORDERED: vancomycin/NS 1 GM ADD-VANTAGE 250 ML IV SCH (23:30)
[2022-12-22] VITALS (33 sets, daily range): BP systolic 53–124; BP diastolic 45–66
[2022-12-22] MEDS: heparin, porcine 5000 units/ml vial SQ SCH ×4 (00:05→23:34)
[2022-12-22 00:19] LABS: ALBUMIN 1.6 G/DL (3.4-5.0); ANION GAP 5 (8-16); BLOOD UREA NITROGEN 8 MG/DL (7-18); BUN/CREATININE RATIO 11.4 (6.6-38.0); CALCIUM 6.4 MG/DL (8.5-10.1); CHLORIDE 106 MMOL/L (99-107); GLUCOSE 183 MG/DL (70-104); MAGNESIUM 2.2 MG/DL (1.5-2.4); PHOSPHORUS 1.6 MG/DL (2.3-4.5); POTASSIUM 3.7 MMOL/L (3.5-5.1); SODIUM 142 MMOL/L (135-145); TOTAL CARBON DIOXIDE 30.6 MMOL/L (24-32); eGFR 88 ML/MIN
[2022-12-22] MEDS ORDERED: sodium phosphate inj. 30 MMOL in dextrose 5%-water 250 ML IV ONE (00:45)
[2022-12-22] MEDS: WATER DEXTROSE IV SCH ×11 (01:00→23:19)
[2022-12-22] MEDS: DEXTROSE IV SCH ×11 (01:00→23:19)
[2022-12-22] MEDS: WATER IV SCH ×11 (01:00→23:19)
[2022-12-22] MEDS: Insulin Reg/NS 100units/100mL 100 ML IV SCH ×15 (01:01→23:45)
[2022-12-22 01:33] LABS: ABG BASE EXCESS 0.9 mmol/L (-2.0-2.0); ABG HCO3 27.9 mmol/L (22.0-26.0); ABG OXYGEN SATURATION 92.3 % (94-97); ABG PCO2 (T) 56.3 mmHg (32.0-45.0); ABG PO2 (T) 60.5 mmHg (75.0-100.0); FCOHb 0.3 % (0.0-3.9); FMetHb 0.3 % (0.0-1.5); FO2Hb 91.7 % (94-97); PATIENT TEMPERATURE 37.1; PEEP 15 cm H2O; RESPIRATORY RATE 24 b/min; TOTAL HEMOGLOBIN 11.7 G/dl (12.0-16.0)
[2022-12-22] MEDS: furosemide 40mg/4ml inj IV SCH ×4 (03:00→20:21)
[2022-12-22] MEDS: propofol 1000mg/100ml bottle 100 ML IV SCH ×3 (03:01→19:59)
[2022-12-22 04:14] LABS: BASOPHILS % (AUTO) 0.1 % (0-1); EOSINOPHILS % (AUTO) 0 % (0-6); HEMATOCRIT 32.2 % (35.0-45.0); HEMOGLOBIN 10.7 g/dl (12.0-16.0); LYMPHOCYTES # (AUTO) 1.1 X10'3 (1.1-4.8); LYMPHOCYTES % (AUTO) 5.9 % (21-51); MEAN CORPUSCULAR HEMOGLOBIN 32.5 PG (27.0-31.0); MEAN CORPUSCULAR HGB CONC 33.1 g/dL (33.0-36.5); MEAN CORPUSCULAR VOLUME 98.2 FL (78-98); MEAN PLATELET VOLUME 7.6 FL (7.4-10.4); MONOCYTES # (AUTO) 1.2 X10'3 (0-0.9); MONOCYTES % (AUTO) 6.3 % (2-12); NEUTROPHILS # (AUTO) 16.9 X10'3 (1.8-7.7); NEUTROPHILS % (AUTO) 87.7 % (42-75); PLATELET COUNT 199 X10'3 (140-440); RED BLOOD COUNT 3.28 X10'6 (4.20-5.60); RED CELL DISTRIBUTION WIDTH 13.3 % (11.5-14.5); WHITE BLOOD COUNT 19.3 X10'3 (4.5-11.0)
[2022-12-22 04:34] LABS: ALANINE AMINOTRANSFERASE 57 U/L (12-78); ALBUMIN 1.5 G/DL (3.4-5.0); ALBUMIN/GLOBULIN RATIO 0.6 (1.1-1.5); ALKALINE PHOSPHATASE 50 IU/L (46-116); ANION GAP 5 (8-16); ASPARTATE AMINO TRANSFERASE 48 U/L (10-37); BILIRUBIN,TOTAL 0.3 MG/DL (0.1-1.0); BLOOD UREA NITROGEN 8 MG/DL (7-18); BUN/CREATININE RATIO 11.9 (6.6-38.0); CALCIUM 6.2 MG/DL (8.5-10.1); CHLORIDE 104 MMOL/L (99-107); CREATININE 0.67 MG/DL (0.40-0.90); GLUCOSE 212 MG/DL (70-104); MAGNESIUM 2.1 MG/DL (1.5-2.4); PHOSPHORUS 3.8 MG/DL (2.3-4.5); POTASSIUM 3.2 MMOL/L (3.5-5.1); SODIUM 141 MMOL/L (135-145); eGFR > 90 ML/MIN
[2022-12-22] MEDS: SODIUM BICARB 150mEq/D5W 1L 1,000 ML IV SCH ×4 (04:52→23:34)
[2022-12-22] MEDS: potassium Cl 40MEQ/270ML bag 270 ML IV PRN ×3 (05:07→15:31)
[2022-12-22 06:50] LABS: ALBUMIN 1.5 G/DL (3.4-5.0); ANION GAP 5 (8-16); BLOOD UREA NITROGEN 7 MG/DL (7-18); BUN/CREATININE RATIO 10.4 (6.6-38.0); CALCIUM 6.3 MG/DL (8.5-10.1); CHLORIDE 103 MMOL/L (99-107); CREATININE 0.67 MG/DL (0.40-0.90); GLUCOSE 138 MG/DL (70-104); MAGNESIUM 1.9 MG/DL (1.5-2.4); PHOSPHORUS 2.9 MG/DL (2.3-4.5); POTASSIUM 3.3 MMOL/L (3.5-5.1); SODIUM 141 MMOL/L (135-145); TOTAL CARBON DIOXIDE 32.6 MMOL/L (24-32); eGFR > 90 ML/MIN
--- NOTE | 2022-12-22 07:06 | NUR ---
Patient in [facility]. I have received report from Vimal RAMOS and had the opportunity to ask questions and assume patient care. Addendum: 12/22/22 at 0707 by Lillian Wilde RN Amended: Links added.
[2022-12-22] MEDS: NORepinephrine inj. 32 MG in normal saline 250ml IV soln 218 ML IV SCH ×2 (07:19→19:57)
[2022-12-22] MEDS: K and/or MAG REPLACEMENT MC SCH ×2 (07:20→20:00)
[2022-12-22] MEDS: piperacillin/tazo 3.375gm/50ml 50 ML IV SCH ×4 (07:20→23:33)
[2022-12-22] MEDS: docusate sod 100mg capsule PO SCH (07:20)
--- NOTE | 2022-12-22 09:47 | NUR ---
Pt.t's called for update. Update provided.
--- NOTE | 2022-12-22 10:29 | NUR ---
RN called and spoke with Dr. Villa re. obtaining daily CXR and placing pt. in supine position. Dr. Villa stated to supine pt. and obtain CXR and if she doesn't tolerate it to prone pt. again. RT paged.
--- NOTE | 2022-12-22 10:52 | NUR ---
Hector Consult: Solomon Young 9 w/ skin intact per EMR. RD d/w RN regarding initiation of EN in addition to routine thiamine/folic acid/MVI given DX DT's in EMR if MD agreeable. OG in place w/ MAP 76 this AM and etoh 0.132 on admit per EMR. Addendum: 12/22/22 at [address] Amended: Links added.
[2022-12-22] MEDS ORDERED: metolazone 2.5mg tablet PO SCH (11:15)
[2022-12-22] MEDS: vancomycin/NS 1 GM ADD-VANTAGE 250 ML IV SCH ×2 (11:17→23:17)
[2022-12-22] MEDS: CISatracurium besylate inj. 100 MG in normal saline 100ml IV soln 90 ML IV PRN (11:19)
--- NOTE | 2022-12-22 11:52 | NUR ---
Ricky from Poison Control called for update. Recommended to stop bicarb gtt, replace calcium, and repeat lactic acid level. Order received to replace calcium and obtain LA.
[2022-12-22] MEDS: CALCIUM GLUC 1gm/50ml NACL,iso 50 ML IV SCH ×2 (12:00→12:46)
--- NOTE | 2022-12-22 12:16 | NUR ---
TF Consult: Trickle TF to start today and reassess TF rate tomorrow per MD; noted pt now w/ scaled wt this admit see updated recs below. Pt remains on Propofol at 4/91 ml/hr providing 130 kcals/day and Na-bicarb/D5W at 150ml/hr providing 612 kcals/day; hopefully D5 to wean w/ EN advancement. Recommendations: 1) Trickle TF per MD using Vital AF at 20ml/hr goal rate; to provide 480ml volume/day, 576 kcals, 389ml water, and 36g protein. 2) IF TF to advance w/ Propofol at 4.91mL/hr (130 kcal/day), continuous Vital AF at 60 mL/hr would provide 1440ml volume/day, 1728 kcals, 1168ml water, and 108g protein. 3) IF TF advances; additional 100 mL water flush Q4H; monitor serum Na 4) Monitor Propofol rate and scaled wt and need to adjust recs 5) PALB Q /; daily scaled weights 6) Consider routine Thiamine, Folic acid, and MVI for EtOH with elevated MCV 7) Routine bowel care Addendum: 12/22/22 at [address] Amended: Links added.
[2022-12-22 12:30] LABS: ALBUMIN 1.2 G/DL (3.4-5.0); ANION GAP 5 (8-16); BLOOD UREA NITROGEN 5 MG/DL (7-18); BUN/CREATININE RATIO 8.8 (6.6-38.0); CHLORIDE 105 MMOL/L (99-107); CREATININE 0.57 MG/DL (0.40-0.90); GLUCOSE 150 MG/DL (70-104); MAGNESIUM 1.3 MG/DL (1.5-2.4); PHOSPHORUS 1.5 MG/DL (2.3-4.5); SODIUM 140 MMOL/L (135-145); TOTAL CARBON DIOXIDE 30.2 MMOL/L (24-32); eGFR > 90 ML/MIN
[2022-12-22 12:33] LABS: CALCIUM 5.4 MG/DL (8.5-10.1); POTASSIUM 2.5 MMOL/L (3.5-5.1)
[2022-12-22] MEDS ORDERED: sodium phosphate inj. 30 MMOL in dextrose 5%-water 250 ML IV PRN (12:40)
[2022-12-22] MEDS: magnesium 4gm in 100ml NS 100 ML IV PRN (12:48)
[2022-12-22] MEDS ORDERED: sodium phosphate inj. 15 MMOL in dextrose 5%-water 250 ML IV ONE ×2 (12:50→19:35)
[2022-12-22] MEDS: FENTANYL-0.9 % NACL/PF 100 ML IV PRN ×2 (13:14→17:47)
[2022-12-22] MEDS ORDERED: magnesium hydroxide 30ml (MOM) UD suspension OGT PRN (13:15)
[2022-12-22] MEDS ORDERED: mag hydrox/Alum hydrox/simeth 30ml oral suspension OGT PRN (13:15)
[2022-12-22] MEDS ORDERED: potassium Cl 20 mEq SR tablet OGT PRN ×2 (13:16)
[2022-12-22] MEDS ORDERED: Neutra Phos packet PO PRN (14:15)
--- NOTE | 2022-12-22 14:19 | NUR ---
Attempt to start another PIV to infuse Sod. phosphate unsuccessful. Will replace PO.
--- NOTE | 2022-12-22 14:46 | NUR ---
Pt. noted to move all extremeties and thrash head despite high rates of sedation. Increasing Propofol and Fentanyl as needed.
[2022-12-22] MEDS: mineral oil/petrolatum ophthal oint EACHEYE PRN (16:36)
[2022-12-22] MEDS: vasopressin inj. 40 UNIT in normal saline 50ml IV soln 38 ML IV SCH (16:52)
[2022-12-22] MEDS: magnesium 2GM in 50ml NS 50 ML IV PRN (17:17)
--- NOTE | 2022-12-22 18:15 | NUR ---
Problems reprioritized. Patient report given, questions answered & plan of care reviewed with DHARMESH RMAOS.
[2022-12-22 18:19] LABS: ALBUMIN 1.3 G/DL (3.4-5.0); ANION GAP 3 (8-16); BLOOD UREA NITROGEN 5 MG/DL (7-18); CALCIUM 6.8 MG/DL (8.5-10.1); CHLORIDE 98 MMOL/L (99-107); CREATININE 0.71 MG/DL (0.40-0.90); GLUCOSE 184 MG/DL (70-104); MAGNESIUM 2.8 MG/DL (1.5-2.4); PHOSPHORUS 1.4 MG/DL (2.3-4.5); POTASSIUM 3.2 MMOL/L (3.5-5.1); SODIUM 137 MMOL/L (135-145); eGFR 87 ML/MIN
--- NOTE | 2022-12-22 18:20 | NUR ---
Patient in room [facility] 2010. I have received report from Lillian RAMOS and had the opportunity to ask questions and assume patient care.
[2022-12-22] MEDS ORDERED: potassium Cl 40MEQ/270ML bag 270 ML IV ONE (19:15)
[2022-12-22] MEDS: metolazone 2.5mg tablet OGT SCH (20:21)
[2022-12-22] MEDS: docusate sodium 100mg/10ml UD cup OGT SCH (20:21)
[2022-12-22] MEDS: fentaNYL 50mcg/ml PF inj. 2,500 MCG in normal saline 250ml IV soln 200 ML IV PRN (21:42)
[2022-12-23] VITALS (34 sets, daily range): BP systolic 100–125; BP diastolic 50–61
[2022-12-23] MEDS: DEXTROSE IV SCH ×11 (01:00→21:28)
[2022-12-23] MEDS: WATER DEXTROSE IV SCH ×11 (01:00→21:28)
[2022-12-23] MEDS: WATER IV SCH ×11 (01:00→21:28)
[2022-12-23] MEDS: Insulin Reg/NS 100units/100mL 100 ML IV SCH ×14 (01:29→23:58)
[2022-12-23] MEDS: propofol 1000mg/100ml bottle 100 ML IV SCH ×4 (01:40→22:11)
[2022-12-23] MEDS: furosemide 40mg/4ml inj IV SCH ×4 (02:17→20:08)
[2022-12-23 02:24] LABS: ABG BASE EXCESS 7.3 mmol/L (-2.0-2.0); ABG HCO3 28.7 mmol/L (22.0-26.0); ABG OXYGEN SATURATION 98.7 % (94-97); ABG PCO2 (T) 31.1 mmHg (32.0-45.0); ABG PO2 (T) 134.2 mmHg (75.0-100.0); ALLEN'S TEST POSITIVE; FCOHb 0.2 % (0.0-3.9); FMetHb 0.3 % (0.0-1.5); FO2Hb 98.2 % (94-97); PATIENT TEMPERATURE 37.8; PEEP 15 cm H2O; RESPIRATORY RATE 24 b/min; TOTAL HEMOGLOBIN 11.6 G/dl (12.0-16.0)
[2022-12-23 02:52] LABS: BASOPHILS # (AUTO) 0.1 X10'3 (0-0.2); BASOPHILS % (AUTO) 0.4 % (0-1); EOSINOPHILS # (AUTO) 0.1 X10'3 (0-0.9); EOSINOPHILS % (AUTO) 0.8 % (0-6); HEMOGLOBIN 10.3 g/dl (12.0-16.0); LYMPHOCYTES # (AUTO) 1.5 X10'3 (1.1-4.8); LYMPHOCYTES % (AUTO) 9.8 % (21-51); MEAN CORPUSCULAR HGB CONC 34.5 g/dL (33.0-36.5); MEAN CORPUSCULAR VOLUME 95.5 FL (78-98); MEAN PLATELET VOLUME 7.7 FL (7.4-10.4); MONOCYTES # (AUTO) 0.7 X10'3 (0-0.9); MONOCYTES % (AUTO) 4.8 % (2-12); NEUTROPHILS # (AUTO) 12.9 X10'3 (1.8-7.7); NEUTROPHILS % (AUTO) 84.2 % (42-75); PLATELET COUNT 185 X10'3 (140-440); RED BLOOD COUNT 3.14 X10'6 (4.20-5.60); RED CELL DISTRIBUTION WIDTH 13.4 % (11.5-14.5); WHITE BLOOD COUNT 15.3 X10'3 (4.5-11.0)
[2022-12-23 03:06] LABS: ALANINE AMINOTRANSFERASE 46 U/L (12-78); ALBUMIN 1.2 G/DL (3.4-5.0); ALBUMIN/GLOBULIN RATIO 0.5 (1.1-1.5); ANION GAP 5 (8-16); ASPARTATE AMINO TRANSFERASE 50 U/L (10-37); BILIRUBIN,TOTAL 0.4 MG/DL (0.1-1.0); BLOOD UREA NITROGEN 4 MG/DL (7-18); BUN/CREATININE RATIO 5.1 (6.6-38.0); CHLORIDE 94 MMOL/L (99-107); CREATININE 0.78 MG/DL (0.40-0.90); GLUCOSE 147 MG/DL (70-104); MAGNESIUM 2.4 MG/DL (1.5-2.4); SODIUM 133 MMOL/L (135-145); TOTAL CARBON DIOXIDE 34.1 MMOL/L (24-32); TOTAL PROTEIN 3.8 G/DL (6.4-8.2); eGFR 78 ML/MIN
[2022-12-23 03:07] LABS: ALKALINE PHOSPHATASE 73 IU/L (46-116); PREALBUMIN 10.9 MG/DL (19-36)
[2022-12-23] MEDS: sodium phosphate inj. 15 MMOL in dextrose 5%-water 250 ML IV PRN (03:45)
[2022-12-23] MEDS: potassium Cl 40MEQ/270ML bag 270 ML IV PRN ×2 (03:45→05:53)
[2022-12-23] MEDS: fentaNYL 50mcg/ml PF inj. 2,500 MCG in normal saline 250ml IV soln 200 ML IV PRN ×2 (05:42→13:18)
--- NOTE | 2022-12-23 06:19 | NUR ---
Problems reprioritized. Patient report given, questions answered & plan of care reviewed with Lillian RAMOS.
[2022-12-23] MEDS: SODIUM BICARB 150mEq/D5W 1L 1,000 ML IV SCH (06:34)
--- NOTE | 2022-12-23 06:58 | NUR ---
Patient in room [facility] 2010. I have received report from Naila RAMOS and had the opportunity to ask questions and assume patient care. Addendum: 12/23/22 at 0702 by Lillian Wilde RN Amended: Links added.
[2022-12-23] MEDS: docusate sodium 100mg/10ml UD cup OGT SCH ×2 (07:21→20:06)
[2022-12-23] MEDS: heparin, porcine 5000 units/ml vial SQ SCH ×3 (07:22→23:16)
[2022-12-23] MEDS: piperacillin/tazo 3.375gm/50ml 50 ML IV SCH ×3 (07:22→23:15)
[2022-12-23] MEDS: metolazone 2.5mg tablet OGT SCH ×2 (07:26→20:07)
[2022-12-23] MEDS: K and/or MAG REPLACEMENT MC SCH ×2 (07:33→20:00)
--- NOTE | 2022-12-23 08:10 | NUR ---
Pt.s called for update. All questions answered.
[2022-12-23 08:38] LABS: ANION GAP -1 (8-16); BLOOD UREA NITROGEN 5 MG/DL (7-18); BUN/CREATININE RATIO 6.6 (6.6-38.0); CHLORIDE 93 MMOL/L (99-107); CREATININE 0.76 MG/DL (0.40-0.90); GLUCOSE 176 MG/DL (70-104); POTASSIUM 4.3 MMOL/L (3.5-5.1); SODIUM 131 MMOL/L (135-145); TOTAL CARBON DIOXIDE 38.5 MMOL/L (24-32)
[2022-12-23 08:39] LABS: ALANINE AMINOTRANSFERASE 50 U/L (12-78); ALBUMIN 1.2 G/DL (3.4-5.0); ALBUMIN/GLOBULIN RATIO 0.4 (1.1-1.5); ALKALINE PHOSPHATASE 87 IU/L (46-116); ASPARTATE AMINO TRANSFERASE 63 U/L (10-37); BILIRUBIN,TOTAL 0.4 MG/DL (0.1-1.0); CALCIUM 7.2 MG/DL (8.5-10.1); MAGNESIUM 1.8 MG/DL (1.5-2.4); PHOSPHORUS 3.8 MG/DL (2.3-4.5); TOTAL PROTEIN 3.9 G/DL (6.4-8.2); eGFR 80 ML/MIN
[2022-12-23] MEDS ORDERED: VANCOMYCIN LEVEL IV ONE (10:30)
[2022-12-23] MEDS: vancomycin/NS 1 GM ADD-VANTAGE 250 ML IV SCH (10:47)
[2022-12-23] MEDS ORDERED: albumin (human) 25% 100ml IV 300 ML IV ONE (11:35)
[2022-12-23] MEDS: CALCIUM GLUC 1gm/50ml NACL,iso 50 ML IV SCH ×3 (11:52→13:31)
[2022-12-23] MEDS: albumin (Human) 5% 250ml 250 ML IV SCH ×5 (11:56→23:16)
[2022-12-23] MEDS: vasopressin inj. 40 UNIT in normal saline 50ml IV soln 38 ML IV SCH (11:57)
[2022-12-23] MEDS: MULTIVIT-MIN/FERROUS GLUCONATE 9 MG/15 ML LIQUID OGT SCH (11:59)
[2022-12-23] MEDS: pantoprazole 40MG/NS 100ML BAG 100 ML IV SCH (12:04)
[2022-12-23] MEDS: folic acid 1mg/0.2ml inj IV SCH (12:06)
[2022-12-23] MEDS: NORepinephrine inj. 32 MG in normal saline 250ml IV soln 218 ML IV SCH (12:09)
--- NOTE | 2022-12-23 12:18 | NUR ---
F/u 12/23: Pt remains intubated tolerating trickle EN started at 25ml/hr since lowest rate pump would go per RN this AM. Noted pt on Propofol at 16.365ml/hr providing 432 kcals/day in addition to insulin drip w/ titratable D50 currently running at 50ml/hr as part of poison control recs providing additional 2040 kcals/day. Per assembly hand at [facility] dex/insulin to be weaned once pressor requirements decrease; is agreeable to continuing trickle EN at this time given IV kcals provision. IF current IV kcals intake persists will need to hold EN to avoid overfeeding on vent. Bunk House Worker agreeable to thiamine, folic acid, MVI supplementation given etoh hx. Recommendations: 1) Trickle TF per MD using Vital AF at 20ml/hr goal rate; to provide 480ml volume/day, 576 kcals, 389ml water, and 36g protein. 2) If Propofol at 16.365ml/hr providing 423 kcals/day and D50 at 50ml/hr providing 2040 kcals/day continue; hold EN to avoid overfeeding on vent 3) IF Propofol and D50 weaned; continuous EN using Vital AF at 60 mL/hr would provide 1440ml volume/day, 1728 kcals, 1168ml water, and 108g protein. 4) IF TF advances; additional 100 mL water flush Q4H; monitor serum Na 5) Monitor Propofol/D50 rates 6) PALB Q /; daily scaled weights 7) routine Thiamine, Folic acid, and MVI for EtOH per MD 8) Routine bowel care Addendum: 12/23/22 at [address] Amended: Links added.
[2022-12-23] MEDS: thiamine 100mg/ml 2ml inj. IV SCH (12:44)
--- NOTE | 2022-12-23 14:26 | NUR ---
Pt's son Tyson at bedside.
--- NOTE | 2022-12-23 15:15 | NUR ---
prevention to staff PRESSURE ULCER EDUCATION: DEFINITION: A pressure ulcer is an area of skin that breaks down when you stay in one position too long. The constant pressure against the skin reduces the blood flow to that area and the affected tissue dies. CAUSES: "Being bedridden or in a wheelchair "Fragile skin "Having a chronic condition, such as diabetes or vascular disease "Inability to move certain parts of your body without assistance "Older age "Incontinence of urine or stool SYMPTOMS: "A reddened area that DOES NOT turn white when pressed on - this can be the beginning of a pressure ulcer "A blister, deep sore or a crater - these can be advanced pressure ulcers FIRST AID: "Relieve the pressure on this area "Keep the area clean and dry "Call your primary doctor if you see any of the above symptoms "DO NOT massage the area "DO NOT use a donut shaped or ring shaped pillow- these actually interfere with the blood flow and cause complications PREVENTION: "Check for pressure ulcers everyday "Change position at least every two hours to relieve pressure "Use items that help relieve pressure- pillows, sheepskin, foam padding, and powders. "Keep skin clean and dry "Eat healthy well balanced meals "Exercise daily IF YOU SEE ANY OF THESE SYMPTOMS WHILE IN THE HOSPITAL - TELL YOUR NURSE IMMEDIATELY. IF YOU SEE ANY OF THESE SYMPTOMS WHILE AT HOME OR HAVE ANY QUESTIONS OR CONCERNS ABOUT PRESSURE ULCERS - CALL YOUR PRIMARY DOCTOR IMMEDIATELY. Addendum: 12/23/22 at 1515 by Arely Nieves RN Amended: Links added.
[2022-12-23 16:11] LABS: ABG BASE EXCESS 14.9 mmol/L (-2.0-2.0); ABG HCO3 42.3 mmol/L (22.0-26.0); FCOHb 0.3 % (0.0-3.9); FMetHb 0.2 % (0.0-1.5); FO2Hb 93.5 % (94-97); PEEP 15 cm H2O; RESPIRATORY RATE 20 b/min; TIDAL VOLUME 449 mL
--- NOTE | 2022-12-23 16:12 | NUR ---
RN asked Dr. Villa if pt still needs to be proned. Stated of current ABG (just obtained) was WNL as far as PF Ratio pt. can remain supine. PF Ratio 173. Pt. to remain supine for now.
--- NOTE | 2022-12-23 16:41 | NUR ---
Poison Control called. Updated.
--- NOTE | 2022-12-23 17:39 | NUR ---
Pt's son Tyson at bedside again. Pt's called twice this shift for updates. Pt. opens her eyes to voice now.
--- NOTE | 2022-12-23 18:30 | NUR ---
Patient in room [facility] 2010. I have received report from Lillian RAMOS and had the opportunity to ask questions and assume patient care.
[2022-12-23] MEDS: LIOthyronine 25mcg tablet PO SCH (20:07)
[2022-12-23] MEDS: VANCOmycin 1250MG/NS 250ml Bag 250 ML IV SCH (22:10)
[2022-12-24] VITALS (36 sets, daily range): BP systolic 94–120; BP diastolic 44–60
[2022-12-24] MEDS: WATER IV SCH ×16 (00:46→23:44)
[2022-12-24] MEDS: DEXTROSE IV SCH ×16 (00:46→23:44)
[2022-12-24] MEDS: WATER DEXTROSE IV SCH ×8 (00:46→13:00)
[2022-12-24] MEDS: Insulin Reg/NS 100units/100mL 100 ML IV SCH ×14 (01:19→23:47)
[2022-12-24] MEDS: ipratropium/albuterol 3ml nebule NEB PRN (01:20)
[2022-12-24] MEDS: furosemide 40mg/4ml inj IV SCH ×4 (02:15→20:37)
[2022-12-24 02:49] LABS: ABG BASE EXCESS 13.3 mmol/L (-2.0-2.0); ABG HCO3 38.8 mmol/L (22.0-26.0); ABG OXYGEN SATURATION 93.2 % (94-97); ABG PCO2 (T) 55.2 mmHg (32.0-45.0); ABG PO2 (T) 63.6 mmHg (75.0-100.0); ALLEN'S TEST POSITIVE; FCOHb 0.3 % (0.0-3.9); FMetHb 0.1 % (0.0-1.5); FO2Hb 92.8 % (94-97); PATIENT TEMPERATURE 37.1; PEEP 13 cm H2O; RESPIRATORY RATE 20 b/min; TOTAL HEMOGLOBIN 9.6 G/dl (12.0-16.0)
[2022-12-24 03:03] LABS: BASOPHILS % (AUTO) 0.2 % (0-1); EOSINOPHILS # (AUTO) 0.2 X10'3 (0-0.9); EOSINOPHILS % (AUTO) 2.1 % (0-6); HEMOGLOBIN 8.8 g/dl (12.0-16.0); LYMPHOCYTES % (AUTO) 9.7 % (21-51); MEAN CORPUSCULAR HEMOGLOBIN 33.5 PG (27.0-31.0); MEAN CORPUSCULAR HGB CONC 35.1 g/dL (33.0-36.5); MEAN CORPUSCULAR VOLUME 95.3 FL (78-98); MEAN PLATELET VOLUME 7.3 FL (7.4-10.4); MONOCYTES # (AUTO) 0.8 X10'3 (0-0.9); MONOCYTES % (AUTO) 8.2 % (2-12); NEUTROPHILS # (AUTO) 8.1 X10'3 (1.8-7.7); NEUTROPHILS % (AUTO) 79.8 % (42-75); PLATELET COUNT 147 X10'3 (140-440); RED BLOOD COUNT 2.63 X10'6 (4.20-5.60); RED CELL DISTRIBUTION WIDTH 13.2 % (11.5-14.5); WHITE BLOOD COUNT 10.1 X10'3 (4.5-11.0)
[2022-12-24] MEDS: albumin (Human) 5% 250ml 250 ML IV SCH ×7 (03:06→22:46)
[2022-12-24 03:47] LABS: ALANINE AMINOTRANSFERASE 42 U/L (12-78); ALBUMIN 2.7 G/DL (3.4-5.0); ALBUMIN/GLOBULIN RATIO 1.2 (1.1-1.5); ALKALINE PHOSPHATASE 75 IU/L (46-116); ANION GAP 2 (8-16); ASPARTATE AMINO TRANSFERASE 55 U/L (10-37); BILIRUBIN,TOTAL 1.2 MG/DL (0.1-1.0); BLOOD UREA NITROGEN 5 MG/DL (7-18); BUN/CREATININE RATIO 6.5 (6.6-38.0); CALCIUM 8.4 MG/DL (8.5-10.1); CHLORIDE 86 MMOL/L (99-107); CREATININE 0.77 MG/DL (0.40-0.90); GLUCOSE 156 MG/DL (70-104); MAGNESIUM 1.7 MG/DL (1.5-2.4); PHOSPHORUS 2.5 MG/DL (2.3-4.5); SODIUM 128 MMOL/L (135-145); TOTAL CARBON DIOXIDE 39.6 MMOL/L (24-32); TOTAL PROTEIN 4.9 G/DL (6.4-8.2); eGFR 79 ML/MIN
[2022-12-24 03:48] LABS: POTASSIUM 2.4 MMOL/L (3.5-5.1)
[2022-12-24] MEDS: potassium Cl 40MEQ/270ML bag 270 ML IV PRN ×4 (04:36→23:44)
--- NOTE | 2022-12-24 06:15 | NUR ---
Problems reprioritized. Patient report given, questions answered & plan of care reviewed with Lillian RAMOS.
[2022-12-24] MEDS: pantoprazole 40MG/NS 100ML BAG 100 ML IV SCH (07:14)
[2022-12-24] MEDS: FLUoxetine 20mg capsule PO SCH (07:16)
[2022-12-24] MEDS: MULTIVIT-MIN/FERROUS GLUCONATE 9 MG/15 ML LIQUID OGT SCH (07:16)
[2022-12-24] MEDS: metolazone 2.5mg tablet OGT SCH ×2 (07:16→20:38)
[2022-12-24] MEDS: docusate sodium 100mg/10ml UD cup OGT SCH ×2 (07:16→20:37)
[2022-12-24] MEDS: levoTHYROXINE 88mcg tablet PO SCH (07:16)
[2022-12-24] MEDS: LIOthyronine 25mcg tablet PO SCH (07:16)
[2022-12-24] MEDS: thiamine 100mg/ml 2ml inj. IV SCH (07:17)
[2022-12-24] MEDS: folic acid 1mg/0.2ml inj IV SCH (07:20)
[2022-12-24] MEDS: heparin, porcine 5000 units/ml vial SQ SCH ×3 (07:21→23:48)
[2022-12-24] MEDS: K and/or MAG REPLACEMENT MC SCH ×2 (07:46→20:00)
[2022-12-24] MEDS: piperacillin/tazo 3.375gm/50ml 50 ML IV SCH ×3 (07:47→23:47)
--- NOTE | 2022-12-24 10:40 | NUR ---
ROUNDS NOTE: Tube feeds dc'd. Continue current treatment.
[2022-12-24] MEDS: VANCOmycin 1250MG/NS 250ml Bag 250 ML IV SCH ×2 (10:56→22:16)
[2022-12-24] MEDS: fentaNYL 50mcg/ml PF inj. 2,500 MCG in normal saline 250ml IV soln 200 ML IV PRN ×2 (11:42→23:59)
--- NOTE | 2022-12-24 11:53 | NUR ---
Reassessment: Pt remains intubated and tolerating trickle TF at 25 mL/hr with GRV WNL. D/w recommendation to discontinue TF at D50/D5 running at 70 mL/hr providing 2856 kcal/day and Propofol at 8.978 mcg/kg/min (4.10 mL/hr) providing 108 kcal/day, overall exceeding estimated energy needs. agrees, TF now discontinued in EMR. LBM 12/24 with two BMs today per RN. Will continue to follow closely and make recommendations as appropriate. Recommendations: 1) IF Propofol and D50 weaned; continuous EN using Vital AF at 60 mL/hr to provide 1440 ml volume/day, 1728 kcal, 1168 ml water, and 108 g protein 2) If Propofol at 4.10 ml/hr (108 kcal/day) and D50 at 70 ml/hr (2856 kcal/day) hold EN to avoid overfeeding on vent 3) Once TF, additional 100 mL water flush Q4H; monitor serum Na 4) Monitor Propofol/D50 rates 5) Once TF, PALB q Friday/; daily scaled weights 6) Routine Thiamine, Folic acid, and MVM with Iron for EtOH per 7) Routine bowel care Addendum: 12/24/22 at [address] Amended: Links added.
[2022-12-24] MEDS: propofol 1000mg/100ml bottle 100 ML IV SCH (12:02)
[2022-12-24] MEDS ORDERED: potassium Cl 40MEQ/270ML bag 270 ML IV ONE ×2 (13:10→15:10)
--- NOTE | 2022-12-24 13:30 | NUR ---
RN notified Dr. Villa of K+2.2. Will hold 1400 Lasix dose and start KCl scheduled per OGT.
[2022-12-24] MEDS: POTASSIUM BICARB 20meq eff tab 20 MEQ TABLET.EFF PO SCH ×2 (13:35→20:37)
[2022-12-24] MEDS: mineral oil/petrolatum ophthal oint EACHEYE PRN (14:50)
[2022-12-24] MEDS: STERILE IV SCH ×8 (14:57→23:44)
[2022-12-24] MEDS: WATER FOR INJECTION IV SCH ×8 (14:57→23:44)
--- NOTE | 2022-12-24 15:03 | NUR ---
BG 76. (Delay in pharmacy bringing D50.)
[2022-12-24] MEDS: NORepinephrine 8mg/ 250ml NS 250 ML IV SCH ×2 (16:05→17:13)
--- NOTE | 2022-12-24 18:08 | NUR ---
Problems reprioritized. Patient report given, questions answered & plan of care reviewed with Vanessa RAMOS.
--- NOTE | 2022-12-24 18:30 | NUR ---
Patient in room [facility] 2010. I have received report from Lillian RAMOS and had the opportunity to ask questions and assume patient care.
[2022-12-24 20:31] LABS: POTASSIUM 2.9 MMOL/L (3.5-5.1)
[2022-12-24] MEDS: liothyronine sod 5mcg tablet PO SCH (20:38)
[2022-12-24] MEDS: vasopressin inj. 40 UNIT in normal saline 50ml IV soln 38 ML IV SCH (20:39)
[2022-12-24 21:38] LABS: MAGNESIUM 1.5 MG/DL (1.5-2.4); PHOSPHORUS 1.9 MG/DL (2.3-4.5)
[2022-12-24] MEDS: sodium phosphate inj. 15 MMOL in dextrose 5%-water 250 ML IV PRN (23:44)
[2022-12-25] VITALS (32 sets, daily range): BP systolic 87–109; BP diastolic 45–55
[2022-12-25] MEDS: propofol 1000mg/100ml bottle 100 ML IV SCH ×3 (01:17→17:01)
[2022-12-25] MEDS: POTASSIUM BICARB 20meq eff tab 20 MEQ TABLET.EFF PO SCH ×4 (01:17→20:42)
[2022-12-25] MEDS: furosemide 40mg/4ml inj IV SCH ×4 (01:18→20:41)
[2022-12-25 02:12] LABS: ABG BASE EXCESS 9.5 mmol/L (-2.0-2.0); ABG HCO3 34.7 mmol/L (22.0-26.0); ABG OXYGEN SATURATION 95.9 % (94-97); ABG PCO2 (T) 50.7 mmHg (32.0-45.0); ABG PO2 (T) 73.8 mmHg (75.0-100.0); ALLEN'S TEST POSITIVE; FCOHb 0.3 % (0.0-3.9); FMetHb 0.2 % (0.0-1.5); FO2Hb 95.4 % (94-97); PATIENT TEMPERATURE 36.6; PEEP 13 cm H2O; RESPIRATORY RATE 20 b/min; TIDAL VOLUME 400 mL; TOTAL HEMOGLOBIN 9.6 G/dl (12.0-16.0)
[2022-12-25] MEDS: albumin (Human) 5% 250ml 250 ML IV SCH ×7 (02:16→22:41)
[2022-12-25] MEDS: STERILE IV SCH ×14 (02:16→19:45)
[2022-12-25] MEDS: WATER FOR INJECTION IV SCH ×14 (02:16→19:45)
[2022-12-25] MEDS: DEXTROSE IV SCH ×14 (02:16→19:45)
[2022-12-25] MEDS: WATER IV SCH ×14 (02:16→19:45)
[2022-12-25 02:40] LABS: BASOPHILS % (AUTO) 0.1 % (0-1); EOSINOPHILS # (AUTO) 0.2 X10'3 (0-0.9); EOSINOPHILS % (AUTO) 2.2 % (0-6); HEMATOCRIT 24.9 % (35.0-45.0); HEMOGLOBIN 8.5 g/dl (12.0-16.0); LYMPHOCYTES # (AUTO) 0.8 X10'3 (1.1-4.8); LYMPHOCYTES % (AUTO) 7.5 % (21-51); MEAN CORPUSCULAR HEMOGLOBIN 33.1 PG (27.0-31.0); MEAN CORPUSCULAR HGB CONC 34.2 g/dL (33.0-36.5); MEAN PLATELET VOLUME 7.5 FL (7.4-10.4); MONOCYTES # (AUTO) 1.1 X10'3 (0-0.9); MONOCYTES % (AUTO) 10.8 % (2-12); NEUTROPHILS # (AUTO) 7.9 X10'3 (1.8-7.7); NEUTROPHILS % (AUTO) 79.4 % (42-75); PLATELET COUNT 148 X10'3 (140-440); RED BLOOD COUNT 2.57 X10'6 (4.20-5.60); RED CELL DISTRIBUTION WIDTH 13.1 % (11.5-14.5)
[2022-12-25] MEDS: Insulin Reg/NS 100units/100mL 100 ML IV SCH ×5 (02:44→09:24)
[2022-12-25 02:57] LABS: ALANINE AMINOTRANSFERASE 33 U/L (12-78); ALBUMIN 3.4 G/DL (3.4-5.0); ALBUMIN/GLOBULIN RATIO 1.7 (1.1-1.5); ALKALINE PHOSPHATASE 79 IU/L (46-116); ANION GAP 2 (8-16); ASPARTATE AMINO TRANSFERASE 40 U/L (10-37); BLOOD UREA NITROGEN 4 MG/DL (7-18); BUN/CREATININE RATIO 6.6 (6.6-38.0); CALCIUM 8.5 MG/DL (8.5-10.1); CHLORIDE 88 MMOL/L (99-107); CREATININE 0.61 MG/DL (0.40-0.90); GLUCOSE 136 MG/DL (70-104); MAGNESIUM 1.5 MG/DL (1.5-2.4); PHOSPHORUS 1.9 MG/DL (2.3-4.5); POTASSIUM 3.8 MMOL/L (3.5-5.1); SODIUM 128 MMOL/L (135-145); TOTAL CARBON DIOXIDE 38.2 MMOL/L (24-32); TOTAL PROTEIN 5.4 G/DL (6.4-8.2); eGFR > 90 ML/MIN
--- NOTE | 2022-12-25 06:30 | NUR ---
Patient in room [facility] 2010. I have received report from Vanessa RAMOS and had the opportunity to ask questions and assume patient care.
--- NOTE | 2022-12-25 06:38 | NUR ---
Problems reprioritized. Patient report given, questions answered & plan of care reviewed with Aminta RAMOS.
[2022-12-25] MEDS: thiamine 100mg/ml 2ml inj. IV SCH (07:33)
[2022-12-25] MEDS: FLUoxetine 20mg capsule PO SCH (07:34)
[2022-12-25] MEDS: heparin, porcine 5000 units/ml vial SQ SCH ×3 (07:34→22:57)
[2022-12-25] MEDS: levoTHYROXINE 88mcg tablet PO SCH (07:34)
[2022-12-25] MEDS: MULTIVIT-MIN/FERROUS GLUCONATE 9 MG/15 ML LIQUID OGT SCH (07:34)
[2022-12-25] MEDS: docusate sodium 100mg/10ml UD cup OGT SCH ×2 (07:34→20:41)
[2022-12-25] MEDS: metolazone 2.5mg tablet OGT SCH ×2 (07:35→20:41)
[2022-12-25] MEDS: liothyronine sod 5mcg tablet PO SCH ×2 (07:35→20:42)
[2022-12-25] MEDS: pantoprazole 40MG/NS 100ML BAG 100 ML IV SCH (07:36)
[2022-12-25] MEDS: piperacillin/tazo 3.375gm/50ml 50 ML IV SCH ×3 (07:36→22:40)
[2022-12-25] MEDS: folic acid 1mg/0.2ml inj IV SCH (07:36)
[2022-12-25] MEDS: K and/or MAG REPLACEMENT MC SCH ×2 (08:18→20:43)
[2022-12-25] MEDS: vasopressin inj. 40 UNIT in normal saline 50ml IV soln 38 ML IV SCH (09:51)
[2022-12-25] MEDS ORDERED: VANCOMYCIN LEVEL IV ONE (10:30)
[2022-12-25] MEDS: VANCOmycin 1250MG/NS 250ml Bag 250 ML IV SCH (11:33)
[2022-12-25 11:38] LABS: VANCOMYCIN,TROUGH 20.2 UG/ML (6.0-14.0)
--- NOTE | 2022-12-25 11:47 | NUR ---
poison control called for an update, updated on current labs, drips and ventilator settings. No new suggestions at this time
[2022-12-25] MEDS: INSULIN REGULAR IV SCH ×6 (11:56→19:54)
[2022-12-25] MEDS: NS IV SCH ×6 (11:56→19:54)
[2022-12-25] MEDS: HUMAN IV SCH ×6 (11:56→19:54)
[2022-12-25 12:37] LABS: MAGNESIUM 1.3 MG/DL (1.5-2.4); PHOSPHORUS 2.4 MG/DL (2.3-4.5)
[2022-12-25 12:56] LABS: POTASSIUM 2.3 MMOL/L (3.5-5.1)
[2022-12-25] MEDS ORDERED: potassium Cl 40MEQ/270ML bag 270 ML IV ONE ×2 (13:15→15:15)
[2022-12-25] MEDS: magnesium 2GM in 50ml NS 50 ML IV PRN (13:15)
--- NOTE | 2022-12-25 13:45 | NUR ---
1400 lasix held due to low potassium, potassium replacement in process
[2022-12-25] MEDS: fentaNYL 50mcg/ml PF inj. 2,500 MCG in normal saline 250ml IV soln 200 ML IV PRN (15:24)
[2022-12-25 16:37] LABS: ABG BASE EXCESS 9.1 mmol/L (-2.0-2.0); ABG HCO3 33.9 mmol/L (22.0-26.0); ABG OXYGEN SATURATION 94.9 % (94-97); ABG PCO2 (T) 48.2 mmHg (32.0-45.0); ABG PO2 (T) 71.6 mmHg (75.0-100.0); ALLEN'S TEST POSITIVE; FCOHb 0.3 % (0.0-3.9); FMetHb 0.3 % (0.0-1.5); FO2Hb 94.3 % (94-97); PATIENT TEMPERATURE 36.9; PEEP 9 cm H2O; RESPIRATORY RATE 20 b/min; TIDAL VOLUME 400 mL; TOTAL HEMOGLOBIN 9.2 G/dl (12.0-16.0)
[2022-12-25] MEDS: NORepinephrine 8mg/ 250ml NS 250 ML IV SCH (17:55)
--- NOTE | 2022-12-25 18:31 | NUR ---
Problems reprioritized. Patient report given, questions answered & plan of care reviewed with Mac RN.
[2022-12-25] MEDS ORDERED: vancomycin/NS 1 GM ADD-VANTAGE 250 ML IV SCH (23:00)
[2022-12-25] MEDS: potassium Cl 40MEQ/270ML bag 270 ML IV PRN (23:22)
[2022-12-26] VITALS (31 sets, daily range): BP systolic 11–126; BP diastolic 42–67
[2022-12-26] MEDS: WATER FOR INJECTION IV SCH ×8 (01:04→13:06)
[2022-12-26] MEDS: DEXTROSE IV SCH ×8 (01:04→13:06)
[2022-12-26] MEDS: STERILE IV SCH ×8 (01:04→13:06)
[2022-12-26] MEDS: WATER IV SCH ×8 (01:04→13:06)
[2022-12-26] MEDS: albumin (Human) 5% 250ml 250 ML IV SCH ×6 (01:26→20:57)
[2022-12-26] MEDS: POTASSIUM BICARB 20meq eff tab 20 MEQ TABLET.EFF PO SCH ×4 (01:26→21:01)
[2022-12-26] MEDS: propofol 1000mg/100ml bottle 100 ML IV SCH ×6 (01:27→23:49)
[2022-12-26] MEDS: furosemide 40mg/4ml inj IV SCH ×4 (01:28→21:00)
[2022-12-26] MEDS: potassium Cl 40MEQ/270ML bag 270 ML IV PRN ×2 (01:29→16:05)
--- NOTE | 2022-12-26 02:00 | NUR ---
0200 lasix held due to low potassium, potassium replacement in process
[2022-12-26 02:45] LABS: ABG BASE EXCESS 12.3 mmol/L (-2.0-2.0); ABG HCO3 37.3 mmol/L (22.0-26.0); ABG OXYGEN SATURATION 93.7 % (94-97); ABG PCO2 (T) 51.7 mmHg (32.0-45.0); ABG PO2 (T) 65.8 mmHg (75.0-100.0); ALLEN'S TEST POSITIVE; FCOHb 0.2 % (0.0-3.9); FMetHb 0.5 % (0.0-1.5); PEEP 7 cm H2O; RESPIRATORY RATE 20 b/min; TIDAL VOLUME 400 mL; TOTAL HEMOGLOBIN 9.3 G/dl (12.0-16.0)
[2022-12-26 02:54] LABS: BASOPHILS % (AUTO) 0.2 % (0-1); EOSINOPHILS # (AUTO) 0.3 X10'3 (0-0.9); EOSINOPHILS % (AUTO) 2.2 % (0-6); HEMATOCRIT 23.4 % (35.0-45.0); HEMOGLOBIN 8.2 g/dl (12.0-16.0); LYMPHOCYTES # (AUTO) 0.7 X10'3 (1.1-4.8); LYMPHOCYTES % (AUTO) 5.5 % (21-51); MEAN CORPUSCULAR HEMOGLOBIN 33.2 PG (27.0-31.0); MEAN CORPUSCULAR HGB CONC 35.1 g/dL (33.0-36.5); MEAN CORPUSCULAR VOLUME 94.5 FL (78-98); MEAN PLATELET VOLUME 7.7 FL (7.4-10.4); MONOCYTES # (AUTO) 2.1 X10'3 (0-0.9); MONOCYTES % (AUTO) 15.2 % (2-12); NEUTROPHILS # (AUTO) 10.5 X10'3 (1.8-7.7); NEUTROPHILS % (AUTO) 76.9 % (42-75); PLATELET COUNT 170 X10'3 (140-440); RED BLOOD COUNT 2.48 X10'6 (4.20-5.60); RED CELL DISTRIBUTION WIDTH 13.1 % (11.5-14.5); WHITE BLOOD COUNT 13.7 X10'3 (4.5-11.0)
--- NOTE | 2022-12-26 03:00 | NUR ---
Communication -Called Dr. Villa regarding red rash on face and trunk. Orders received.
[2022-12-26 03:19] LABS: ALANINE AMINOTRANSFERASE 32 U/L (12-78); ALBUMIN 3.4 G/DL (3.4-5.0); ALKALINE PHOSPHATASE 77 IU/L (46-116); ANION GAP 2 (8-16); ASPARTATE AMINO TRANSFERASE 33 U/L (10-37); BILIRUBIN,TOTAL 1.1 MG/DL (0.1-1.0); BLOOD UREA NITROGEN 5 MG/DL (7-18); BUN/CREATININE RATIO 8.1 (6.6-38.0); CALCIUM 7.8 MG/DL (8.5-10.1); CHLORIDE 84 MMOL/L (99-107); CREATININE 0.62 MG/DL (0.40-0.90); GLUCOSE 152 MG/DL (70-104); MAGNESIUM 1.6 MG/DL (1.5-2.4); PHOSPHORUS 1.5 MG/DL (2.3-4.5); POTASSIUM 3.4 MMOL/L (3.5-5.1); SODIUM 125 MMOL/L (135-145); TOTAL PROTEIN 5.1 G/DL (6.4-8.2); eGFR > 90 ML/MIN
[2022-12-26] MEDS: methylPREDNISolone sod succ/PF 40mg inj. IV SCH ×4 (03:27→21:00)
[2022-12-26 03:58] LABS: PLATELET ESTIMATE NORMAL; TOTAL CELLS COUNTED 100
[2022-12-26] MEDS: fentaNYL 50mcg/ml PF inj. 2,500 MCG in normal saline 250ml IV soln 200 ML IV PRN ×2 (05:55→21:17)
--- NOTE | 2022-12-26 06:30 | NUR ---
Patient in room [facility] 2010. I have received report from Oswaldo RAMOS and had the opportunity to ask questions and assume patient care.
[2022-12-26] MEDS: liothyronine sod 5mcg tablet PO SCH ×2 (07:41→21:00)
[2022-12-26] MEDS: metolazone 2.5mg tablet OGT SCH ×2 (07:41→21:01)
[2022-12-26] MEDS: heparin, porcine 5000 units/ml vial SQ SCH ×3 (07:42→23:49)
[2022-12-26] MEDS: thiamine 100mg/ml 2ml inj. IV SCH (07:42)
[2022-12-26] MEDS: levoTHYROXINE 88mcg tablet PO SCH (07:42)
[2022-12-26] MEDS: pantoprazole 40MG/NS 100ML BAG 100 ML IV SCH (07:43)
[2022-12-26] MEDS: docusate sodium 100mg/10ml UD cup OGT SCH ×2 (07:43→20:00)
[2022-12-26] MEDS: MULTIVIT-MIN/FERROUS GLUCONATE 9 MG/15 ML LIQUID OGT SCH (07:43)
[2022-12-26] MEDS: piperacillin/tazo 3.375gm/50ml 50 ML IV SCH ×3 (07:43→23:49)
[2022-12-26] MEDS: K and/or MAG REPLACEMENT MC SCH ×2 (07:44→20:00)
[2022-12-26] MEDS: folic acid 1mg/0.2ml inj IV SCH (07:44)
[2022-12-26] MEDS: FLUoxetine 20mg capsule PO SCH (07:52)
[2022-12-26] MEDS: NORepinephrine 8mg/ 250ml NS 250 ML IV SCH (10:00)
--- NOTE | 2022-12-26 13:58 | NUR ---
F/u 12/26: Pt not receiving D70 actually D50 per pharmacy; currently running at 40ml/hr this AM per RN providing additional 1632 kcals w/ Propofol visualized at 6.546ml/hr providing 173 kcals. Total 1805 kcals from IV sources provided at this time. If Dex decreased would benefit from at least trickle feeds to prevent bacterial translocation and optimize gut integrity. Recommendations: 1) IF Propofol and D50 weaned; continuous EN using Vital AF at 60 mL/hr to provide 1440 ml volume/day, 1728 kcal, 1168 ml water, and 108 g protein 2) If Propofol at 4.10 ml/hr (108 kcal/day) and D50 at 70 ml/hr (2856 kcal/day) hold EN to avoid overfeeding on vent 3) Once TF, additional 100 mL water flush Q4H; monitor serum Na 4) Monitor Propofol/D50 rates 5) Once TF, PALB q Friday/; daily scaled weights 6) Routine Thiamine, Folic acid, and MVM with Iron for EtOH per MD 7) Routine bowel care Addendum: 12/26/22 at [address] Amended: Links added.
[2022-12-26] MEDS ORDERED: furosemide 40mg/4ml inj IV ONE (16:10)
--- NOTE | 2022-12-26 18:29 | NUR ---
Patient report given, questions answered & plan of care reviewed with Vanessa RAMOS.
[2022-12-26] MEDS: sodium chloride 1gm tablet PO SCH (21:00)
[2022-12-26] MEDS: vasopressin inj. 40 UNIT in normal saline 50ml IV soln 38 ML IV SCH (23:56)
[2022-12-27] VITALS (34 sets, daily range): BP systolic 90–123; BP diastolic 44–66
[2022-12-27 02:20] LABS: BASOPHILS % (AUTO) 0.1 % (0-1); EOSINOPHILS % (AUTO) 0.2 % (0-6); HEMATOCRIT 23.1 % (35.0-45.0); LYMPHOCYTES # (AUTO) 0.6 X10'3 (1.1-4.8); LYMPHOCYTES % (AUTO) 3.8 % (21-51); MEAN CORPUSCULAR HEMOGLOBIN 32.9 PG (27.0-31.0); MEAN CORPUSCULAR HGB CONC 34.5 g/dL (33.0-36.5); MEAN CORPUSCULAR VOLUME 95.3 FL (78-98); MEAN PLATELET VOLUME 7.8 FL (7.4-10.4); MONOCYTES # (AUTO) 1.5 X10'3 (0-0.9); MONOCYTES % (AUTO) 9.2 % (2-12); NEUTROPHILS # (AUTO) 13.9 X10'3 (1.8-7.7); NEUTROPHILS % (AUTO) 86.7 % (42-75); PLATELET COUNT 197 X10'3 (140-440); RED BLOOD COUNT 2.42 X10'6 (4.20-5.60); RED CELL DISTRIBUTION WIDTH 13.4 % (11.5-14.5); WHITE BLOOD COUNT 16.1 X10'3 (4.5-11.0)
[2022-12-27 02:29] LABS: ALANINE AMINOTRANSFERASE 33 U/L (12-78); ALBUMIN 4.2 G/DL (3.4-5.0); ALBUMIN/GLOBULIN RATIO 2.2 (1.1-1.5); ALKALINE PHOSPHATASE 99 IU/L (46-116); ANION GAP 9 (8-16); ASPARTATE AMINO TRANSFERASE 43 U/L (10-37); BILIRUBIN,TOTAL 0.8 MG/DL (0.1-1.0); BLOOD UREA NITROGEN 12 MG/DL (7-18); BUN/CREATININE RATIO 14.3 (6.6-38.0); CALCIUM 8.7 MG/DL (8.5-10.1); CHLORIDE 87 MMOL/L (99-107); CREATININE 0.84 MG/DL (0.40-0.90); GLUCOSE 152 MG/DL (70-104); MAGNESIUM 1.8 MG/DL (1.5-2.4); PHOSPHORUS 4.2 MG/DL (2.3-4.5); POTASSIUM 4.1 MMOL/L (3.5-5.1); SODIUM 133 MMOL/L (135-145); TOTAL CARBON DIOXIDE 36.8 MMOL/L (24-32); TOTAL PROTEIN 6.1 G/DL (6.4-8.2); eGFR 71 ML/MIN
[2022-12-27] MEDS: furosemide 40mg/4ml inj IV SCH ×4 (02:48→20:55)
[2022-12-27] MEDS: methylPREDNISolone sod succ/PF 40mg inj. IV SCH ×4 (02:48→20:55)
[2022-12-27] MEDS: POTASSIUM BICARB 20meq eff tab 20 MEQ TABLET.EFF PO SCH ×4 (02:49→20:55)
[2022-12-27 03:01] LABS: ABG BASE EXCESS 11.8 mmol/L (-2.0-2.0); ABG HCO3 37.6 mmol/L (22.0-26.0); ABG OXYGEN SATURATION 91.6 % (94-97); ABG PCO2 (T) 55.9 mmHg (32.0-45.0); ABG PO2 (T) 59.4 mmHg (75.0-100.0); FCOHb 0.3 % (0.0-3.9); FMetHb 0.4 % (0.0-1.5); PEEP 7 cm H2O; RESPIRATORY RATE 20 b/min; TIDAL VOLUME 400 mL; TOTAL HEMOGLOBIN 8.6 G/dl (12.0-16.0)
--- NOTE | 2022-12-27 03:20 | NUR ---
Communication -Called Dr. Villa regarding critical values. Orders received. Addendum: 12/28/22 at 0546 by Vanessa Deal RN Entered in error. Incorrect time
--- NOTE | 2022-12-27 04:30 | NUR ---
Communication -Called Dr. Villa regarding increased O2 demands. Orders received.
[2022-12-27] MEDS: albumin (Human) 5% 250ml 250 ML IV SCH ×2 (05:01)
[2022-12-27] MEDS: propofol 1000mg/100ml bottle 100 ML IV SCH ×4 (05:01→23:29)
--- NOTE | 2022-12-27 05:15 | NUR ---
Pt placed in prone position. Tolerated well.
--- NOTE | 2022-12-27 06:30 | NUR ---
Patient in room [facility] 2010. I have received report from Vanessa RAMOS and had the opportunity to ask questions and assume patient care.
[2022-12-27] MEDS: pantoprazole 40MG/NS 100ML BAG 100 ML IV SCH (07:38)
[2022-12-27] MEDS: liothyronine sod 5mcg tablet PO SCH ×2 (07:38→20:56)
[2022-12-27] MEDS: docusate sodium 100mg/10ml UD cup OGT SCH ×2 (07:39→20:00)
[2022-12-27] MEDS: metolazone 2.5mg tablet OGT SCH ×2 (07:39→20:58)
[2022-12-27] MEDS: thiamine 100mg/ml 2ml inj. IV SCH (07:39)
[2022-12-27] MEDS: sodium chloride 1gm tablet PO SCH ×4 (07:40→20:55)
[2022-12-27] MEDS: levoTHYROXINE 88mcg tablet PO SCH (07:40)
[2022-12-27] MEDS: FLUoxetine 20mg capsule PO SCH (07:40)
[2022-12-27] MEDS: MULTIVIT-MIN/FERROUS GLUCONATE 9 MG/15 ML LIQUID OGT SCH (07:40)
[2022-12-27] MEDS: folic acid 1mg/0.2ml inj IV SCH (07:48)
[2022-12-27] MEDS: K and/or MAG REPLACEMENT MC SCH ×2 (07:58→20:00)
[2022-12-27] MEDS: heparin, porcine 5000 units/ml vial SQ SCH ×2 (08:00→16:45)
[2022-12-27] MEDS: piperacillin/tazo 3.375gm/50ml 50 ML IV SCH ×2 (08:04→16:44)
--- NOTE | 2022-12-27 09:28 | NUR ---
MD visit MD to see. Pt had just wiggled down in bed and we were repositioning her again to have her head/ETT over the end of the bed. CN assisted with repositioning. RT responded to assess vent & ETT status. OK to DC albumin.
[2022-12-27] MEDS ORDERED: VANCOMYCIN LEVEL IV ONE (10:30)
[2022-12-27] MEDS: NORepinephrine 8mg/ 250ml NS 250 ML IV SCH ×2 (11:42→23:30)
--- NOTE | 2022-12-27 12:40 | NUR ---
RT stat to bedside pt on sedation starting flailing prone, RN at bedside, vent alarming ETT dislodged and self extubated, pt desat to low 50's, repositioned pt to supine position , assist ventilations via ambu bag with PEEP valve set at 10, SP02 improved to 97%, Dr. Villa to bedside pt paralyzed reintubated with 7.5 ETT tube on first attempt via gleidoscope, Positive ETCO2 bilateral equal bs, pt returned to vent same settings. ETT secured with anchorfast pt repositioned to prone. see vent charting. Addendum: 12/27/22 at 1318 by Salena Philippe RT Amended: Links added.
[2022-12-27] MEDS: CISatracurium besylate inj. 100 MG in normal saline 100ml IV soln 90 ML IV PRN (13:14)
--- NOTE | 2022-12-27 13:15 | NUR ---
Reintubation At about 12:15, pt suddenly became agitated on fentanyl and propofol, wigged herself down in the bed and dislodged her ETT. We were immediately available, with several RN's and RT pt was supined and bagging began. Pt sats dipped to low 80s but returned quickly with BMV. MD was notified, arrived quickly and pt was reintubated, ETT & OG secured in place, post intubation xray completed and pt was proned again per plan. Nimbex added.
[2022-12-27] MEDS ORDERED: etomidate 2mg/ml inj. ONE (14:30)
[2022-12-27] MEDS ORDERED: rocuronium 10mg/ml inj IV ONE (14:30)
--- NOTE | 2022-12-27 16:05 | NUR ---
TF consult: Pt remains intubated, no longer on insulin or dextrose drip. Okay to begin TF per MD, see recs below. Propofol visualized at bedside to be running at 10.27 mL/hr providing 271 kcal/day. Pt now with a rectal tube in place though no documentation of stool output. Will continue to follow and adjust recommendations as appropriate. Recommendations: 1) Given Propofol at 10.27 mL/hr (271 kcal/day), continuous Vital HP via OGT with 60 mL/hr goal rate to provide 1440 mL volume/day, 1440 kcal, 126 g protein, and 1204 mL water 2) Monitor Propofol rate and need to adjust recs; IF Propofol discontinued, continuous EN using Vital AF at 65 mL/hr to provide 1560 ml volume/day, 1872 kcal, 1265 ml water, and 117 g protein 3) Additional water flush per MD given hyponatremia; monitor serum Na 4) PALB q Friday/ 5) Daily scaled weights 6) Routine Thiamine, Folic acid, and MVM with Iron for EtOH per MD 7) Routine bowel care Addendum: 12/27/22 at [address] Amended: Links added.
--- NOTE | 2022-12-27 18:21 | NUR ---
Problems reprioritized. Patient report given, questions answered & plan of care reviewed with Vanessa RAMOS.
[2022-12-27] MEDS: fentaNYL 50mcg/ml PF inj. 2,500 MCG in normal saline 250ml IV soln 200 ML IV PRN (19:50)
--- NOTE | 2022-12-27 21:20 | NUR ---
RN Note -Pt supined. Tolerated well.
[2022-12-27] MEDS ORDERED: DEXTROSE 15 GM of carb/4 tabs (each vial/BOTTLE has 4 tablets) PO PRN ×2 (21:50)
[2022-12-27] MEDS ORDERED: glucagon, human recombinant 1mg kit SUBCUT PRN (21:50)
[2022-12-27] MEDS ORDERED: dextrose 50%-water 50ml dispensing syringe IV PRN ×2 (21:50)
[2022-12-27] MEDS: insulin glargine (Lantus) pen - multi-dose SQ SCH (23:18)
[2022-12-27] MEDS: insulin regular, human U-100 3ml vial - multi-dose SQ SCH (23:19)
[2022-12-28] VITALS (33 sets, daily range): BP systolic 92–152; BP diastolic 48–75
[2022-12-28] MEDS: heparin, porcine 5000 units/ml vial SQ SCH ×4 (00:34→23:45)
[2022-12-28] MEDS: piperacillin/tazo 3.375gm/50ml 50 ML IV SCH ×4 (00:34→23:45)
[2022-12-28] MEDS: CISatracurium besylate inj. 100 MG in normal saline 100ml IV soln 90 ML IV PRN ×3 (00:35→19:24)
[2022-12-28] MEDS: POTASSIUM BICARB 20meq eff tab 20 MEQ TABLET.EFF PO SCH ×4 (03:00→20:48)
[2022-12-28] MEDS: methylPREDNISolone sod succ/PF 40mg inj. IV SCH ×4 (03:00→20:46)
[2022-12-28] MEDS: fentaNYL 50mcg/ml PF inj. 2,500 MCG in normal saline 250ml IV soln 200 ML IV PRN ×2 (03:01→14:08)
[2022-12-28] MEDS: furosemide 40mg/4ml inj IV SCH ×4 (03:01→20:46)
[2022-12-28] MEDS: insulin regular, human U-100 3ml vial - multi-dose SQ SCH ×4 (03:03→20:58)
[2022-12-28 03:07] LABS: ABG BASE EXCESS 22.1 mmol/L (-2.0-2.0); ABG HCO3 45.9 mmol/L (22.0-26.0); ABG OXYGEN SATURATION 97.5 % (94-97); ABG PCO2 (T) 47.8 mmHg (32.0-45.0); ABG PO2 (T) 98.9 mmHg (75.0-100.0); FCOHb 0.2 % (0.0-3.9); FMetHb 0.3 % (0.0-1.5); PATIENT TEMPERATURE 37.3; PEEP 10 cm H2O; RESPIRATORY RATE 20 b/min; TIDAL VOLUME 400 mL; TOTAL HEMOGLOBIN 9.5 G/dl (12.0-16.0)
--- NOTE | 2022-12-28 03:15 | NUR ---
Communication -Called Dr. Villa regarding critical values. Orders received.
--- NOTE | 2022-12-28 03:31 | NUR ---
Pt proned. Tolerated well.
[2022-12-28 03:39] LABS: BASOPHILS % (AUTO) 0.2 % (0-1); EOSINOPHILS % (AUTO) 0.2 % (0-6); HEMATOCRIT 25.1 % (35.0-45.0); HEMOGLOBIN 8.7 g/dl (12.0-16.0); LYMPHOCYTES # (AUTO) 1.2 X10'3 (1.1-4.8); LYMPHOCYTES % (AUTO) 6.2 % (21-51); MEAN CORPUSCULAR HEMOGLOBIN 32.9 PG (27.0-31.0); MEAN CORPUSCULAR HGB CONC 34.7 g/dL (33.0-36.5); MEAN CORPUSCULAR VOLUME 94.7 FL (78-98); MEAN PLATELET VOLUME 7.7 FL (7.4-10.4); MONOCYTES # (AUTO) 2.4 X10'3 (0-0.9); NEUTROPHILS % (AUTO) 80.4 % (42-75); PLATELET COUNT 297 X10'3 (140-440); RED BLOOD COUNT 2.65 X10'6 (4.20-5.60); WHITE BLOOD COUNT 18.7 X10'3 (4.5-11.0)
[2022-12-28] MEDS: acetaZOLAMIDE IV 500mg inj IV SCH ×2 (03:46→09:20)
[2022-12-28 03:50] LABS: ALANINE AMINOTRANSFERASE 64 U/L (12-78); ALBUMIN/GLOBULIN RATIO 1.6 (1.1-1.5); ALKALINE PHOSPHATASE 151 IU/L (46-116); ASPARTATE AMINO TRANSFERASE 81 U/L (10-37); BILIRUBIN,TOTAL 0.9 MG/DL (0.1-1.0); BLOOD UREA NITROGEN 22 MG/DL (7-18); BUN/CREATININE RATIO 27.2 (6.6-38.0); CALCIUM 9.1 MG/DL (8.5-10.1); CHLORIDE 93 MMOL/L (99-107); CREATININE 0.81 MG/DL (0.40-0.90); GLUCOSE 155 MG/DL (70-104); MAGNESIUM 2.4 MG/DL (1.5-2.4); PHOSPHORUS 3.4 MG/DL (2.3-4.5); SODIUM 141 MMOL/L (135-145); TOTAL PROTEIN 6.5 G/DL (6.4-8.2); TRIGLYCERIDES 108 MG/DL (20-135); eGFR 75 ML/MIN
[2022-12-28 04:05] LABS: POTASSIUM 2.7 MMOL/L (3.5-5.1)
[2022-12-28 04:14] LABS: ANION GAP 1 (8-16); TOTAL CARBON DIOXIDE 46.7 MMOL/L (24-32)
[2022-12-28] MEDS: potassium Cl 40MEQ/270ML bag 270 ML IV PRN ×2 (04:55→07:11)
[2022-12-28] MEDS: propofol 1000mg/100ml bottle 100 ML IV SCH ×4 (05:13→20:37)
[2022-12-28 06:20] LABS: NUCLEATED RED BLOOD CELLS 2 /100WBC (0-0); PLATELET ESTIMATE NORMAL; STOMATOCYTES FEW; TARGET CELLS 1+; TOTAL CELLS COUNTED 100
--- NOTE | 2022-12-28 06:30 | NUR ---
Patient in room CICU 2010. I have received report from Vanessa RAMOS with Siri RN-S and had the opportunity to ask questions and assume patient care.
[2022-12-28] MEDS: thiamine 100mg/ml 2ml inj. IV SCH (07:26)
[2022-12-28] MEDS: pantoprazole 40MG/NS 100ML BAG 100 ML IV SCH (07:27)
[2022-12-28] MEDS: docusate sodium 100mg/10ml UD cup OGT SCH ×2 (07:27→20:47)
[2022-12-28] MEDS: MULTIVIT-MIN/FERROUS GLUCONATE 9 MG/15 ML LIQUID OGT SCH (07:27)
[2022-12-28] MEDS: folic acid 1mg/0.2ml inj IV SCH (07:27)
[2022-12-28] MEDS: metolazone 2.5mg tablet OGT SCH ×2 (07:28→20:47)
[2022-12-28] MEDS: liothyronine sod 5mcg tablet PO SCH ×2 (07:28→20:47)
[2022-12-28] MEDS: levoTHYROXINE 88mcg tablet PO SCH (07:29)
[2022-12-28] MEDS: sodium chloride 1gm tablet PO SCH ×4 (07:29→20:48)
[2022-12-28] MEDS: FLUoxetine 20mg capsule PO SCH (07:29)
[2022-12-28] MEDS: K and/or MAG REPLACEMENT MC SCH ×2 (07:30→20:00)
--- NOTE | 2022-12-28 18:30 | NUR ---
Patient in room CICU 2010. I have received report from Jorge RAMOS and had the opportunity to ask questions and assume patient care.
--- NOTE | 2022-12-28 18:40 | NUR ---
Student documentation: I have reviewed and agree with all interventions, assessments performed and documented by Siri SAUER.
[2022-12-28] MEDS: Potassium Cl inj 40 MEQ in normal saline 250ml IV soln 250 ML IV SCH (20:38)
[2022-12-28] MEDS: insulin glargine (Lantus) pen - multi-dose SQ SCH (20:57)
[2022-12-28] MEDS: NORepinephrine 8mg/ 250ml NS 250 ML IV SCH (21:53)
--- NOTE | 2022-12-28 22:45 | NUR ---
Pt Supined without incident. Ice pack to swollen face.
[2022-12-29] VITALS (33 sets, daily range): BP systolic 82–136; BP diastolic 41–75
[2022-12-29] MEDS: fentaNYL 50mcg/ml PF inj. 2,500 MCG in normal saline 250ml IV soln 200 ML IV PRN ×3 (00:53→20:47)
[2022-12-29] MEDS: furosemide 40mg/4ml inj IV SCH ×4 (02:24→20:46)
[2022-12-29] MEDS: methylPREDNISolone sod succ/PF 40mg inj. IV SCH ×4 (02:24→20:46)
[2022-12-29] MEDS: POTASSIUM BICARB 20meq eff tab 20 MEQ TABLET.EFF PO SCH ×4 (02:24→20:46)
[2022-12-29] MEDS: insulin regular, human U-100 3ml vial - multi-dose SQ SCH ×4 (02:26→20:58)
[2022-12-29 03:23] LABS: ABG BASE EXCESS 14.8 mmol/L (-2.0-2.0); ABG HCO3 38.9 mmol/L (22.0-26.0); ABG OXYGEN SATURATION 97.3 % (94-97); ABG PCO2 (T) 46.1 mmHg (32.0-45.0); ABG PO2 (T) 100.8 mmHg (75.0-100.0); FCOHb 0.3 % (0.0-3.9); FMetHb 0.2 % (0.0-1.5); FO2Hb 96.8 % (94-97); PATIENT TEMPERATURE 37.1; PEEP 10 cm H2O; RESPIRATORY RATE 20 b/min; TIDAL VOLUME 400 mL; TOTAL HEMOGLOBIN 10.9 G/dl (12.0-16.0)
[2022-12-29 03:29] LABS: BASOPHILS % (AUTO) 0.2 % (0-1); EOSINOPHILS % (AUTO) 0.2 % (0-6); HEMATOCRIT 27.9 % (35.0-45.0); HEMOGLOBIN 9.7 g/dl (12.0-16.0); LYMPHOCYTES # (AUTO) 1.6 X10'3 (1.1-4.8); LYMPHOCYTES % (AUTO) 7.2 % (21-51); MEAN CORPUSCULAR HEMOGLOBIN 33.2 PG (27.0-31.0); MEAN CORPUSCULAR HGB CONC 34.8 g/dL (33.0-36.5); MEAN CORPUSCULAR VOLUME 95.5 FL (78-98); MEAN PLATELET VOLUME 8.1 FL (7.4-10.4); MONOCYTES # (AUTO) 3.2 X10'3 (0-0.9); MONOCYTES % (AUTO) 14.7 % (2-12); NEUTROPHILS # (AUTO) 16.9 X10'3 (1.8-7.7); NEUTROPHILS % (AUTO) 77.7 % (42-75); PLATELET COUNT 400 X10'3 (140-440); RED BLOOD COUNT 2.92 X10'6 (4.20-5.60); RED CELL DISTRIBUTION WIDTH 14.3 % (11.5-14.5); WHITE BLOOD COUNT 21.7 X10'3 (4.5-11.0)
[2022-12-29 03:47] LABS: ALANINE AMINOTRANSFERASE 175 U/L (12-78); ALBUMIN 4.1 G/DL (3.4-5.0); ALBUMIN/GLOBULIN RATIO 1.3 (1.1-1.5); ALKALINE PHOSPHATASE 245 IU/L (46-116); ANION GAP 7 (8-16); ASPARTATE AMINO TRANSFERASE 244 U/L (10-37); BILIRUBIN,TOTAL 0.8 MG/DL (0.1-1.0); BLOOD UREA NITROGEN 53 MG/DL (7-18); BUN/CREATININE RATIO 60.2 (6.6-38.0); CALCIUM 9.7 MG/DL (8.5-10.1); CHLORIDE 97 MMOL/L (99-107); CREATININE 0.88 MG/DL (0.40-0.90); GLUCOSE 164 MG/DL (70-104); MAGNESIUM 2.7 MG/DL (1.5-2.4); PHOSPHORUS 3.9 MG/DL (2.3-4.5); POTASSIUM 3.1 MMOL/L (3.5-5.1); SODIUM 144 MMOL/L (135-145); TOTAL PROTEIN 7.2 G/DL (6.4-8.2); eGFR 68 ML/MIN
[2022-12-29 03:52] LABS: TOTAL CARBON DIOXIDE 40.1 MMOL/L (24-32)
[2022-12-29] MEDS: propofol 1000mg/100ml bottle 100 ML IV SCH ×3 (04:07→17:37)
[2022-12-29] MEDS: potassium Cl 40MEQ/270ML bag 270 ML IV PRN (04:13)
[2022-12-29 04:21] LABS: TOTAL CELLS COUNTED 100
[2022-12-29 04:23] LABS: PLATELET ESTIMATE NORMAL
[2022-12-29 04:24] LABS: LARGE PLATELETS MODERATE
[2022-12-29 04:25] LABS: STOMATOCYTES FEW; TARGET CELLS FEW
[2022-12-29] MEDS: CISatracurium besylate inj. 100 MG in normal saline 100ml IV soln 90 ML IV PRN ×3 (06:21→20:08)
--- NOTE | 2022-12-29 06:30 | NUR ---
Problems reprioritized. Patient report given, questions answered & plan of care reviewed with Aminta RAMOS.
[2022-12-29] MEDS: K and/or MAG REPLACEMENT MC SCH ×2 (08:00→18:16)
[2022-12-29] MEDS: docusate sodium 100mg/10ml UD cup OGT SCH ×2 (08:31→20:46)
[2022-12-29] MEDS: MULTIVIT-MIN/FERROUS GLUCONATE 9 MG/15 ML LIQUID OGT SCH (08:31)
[2022-12-29] MEDS: folic acid 1mg/0.2ml inj IV SCH (08:32)
[2022-12-29] MEDS: Potassium Cl inj 40 MEQ in normal saline 250ml IV soln 250 ML IV SCH ×2 (08:32→22:03)
[2022-12-29] MEDS: liothyronine sod 5mcg tablet PO SCH ×2 (08:32→20:46)
[2022-12-29] MEDS: pantoprazole 40MG/NS 100ML BAG 100 ML IV SCH (08:33)
[2022-12-29] MEDS: piperacillin/tazo 3.375gm/50ml 50 ML IV SCH ×3 (08:33→23:42)
[2022-12-29] MEDS: sodium chloride 1gm tablet PO SCH ×4 (08:34→20:46)
[2022-12-29] MEDS: thiamine 100mg/ml 2ml inj. IV SCH (08:35)
[2022-12-29] MEDS: FLUoxetine 20mg capsule PO SCH (08:35)
[2022-12-29] MEDS: levoTHYROXINE 88mcg tablet PO SCH (08:35)
[2022-12-29] MEDS: heparin, porcine 5000 units/ml vial SQ SCH ×3 (08:38→23:43)
[2022-12-29] MEDS: acetaZOLAMIDE IV 500mg inj IV SCH (08:40)
[2022-12-29] MEDS: NORepinephrine 8mg/ 250ml NS 250 ML IV SCH (15:47)
--- NOTE | 2022-12-29 18:05 | NUR ---
Problems reprioritized. Patient report given, questions answered & plan of care reviewed with Naila RAMOS.
--- NOTE | 2022-12-29 18:27 | NUR ---
Patient in room CICU 2010. I have received report from Aminta RAMOS and had the opportunity to ask questions and assume patient care.
[2022-12-29] MEDS: insulin glargine (Lantus) pen - multi-dose SQ SCH (20:57)
[2022-12-30] VITALS (34 sets, daily range): BP systolic 89–137; BP diastolic 45–74
[2022-12-30] MEDS: furosemide 40mg/4ml inj IV SCH ×4 (02:29→20:46)
[2022-12-30] MEDS: POTASSIUM BICARB 20meq eff tab 20 MEQ TABLET.EFF PO SCH ×2 (02:29→08:00)
[2022-12-30] MEDS: methylPREDNISolone sod succ/PF 40mg inj. IV SCH ×4 (02:29→20:46)
[2022-12-30] MEDS: insulin regular, human U-100 3ml vial - multi-dose SQ SCH ×4 (02:31→21:29)
[2022-12-30] MEDS: propofol 1000mg/100ml bottle 100 ML IV SCH ×4 (03:05→18:02)
[2022-12-30 03:17] LABS: BASOPHILS # (AUTO) 0.1 X10'3 (0-0.2); BASOPHILS % (AUTO) 0.2 % (0-1); EOSINOPHILS # (AUTO) 0.1 X10'3 (0-0.9); EOSINOPHILS % (AUTO) 0.3 % (0-6); HEMATOCRIT 30.9 % (35.0-45.0); HEMOGLOBIN 10.2 g/dl (12.0-16.0); LYMPHOCYTES # (AUTO) 2.3 X10'3 (1.1-4.8); MEAN CORPUSCULAR HEMOGLOBIN 32.2 PG (27.0-31.0); MEAN CORPUSCULAR HGB CONC 33.1 g/dL (33.0-36.5); MEAN CORPUSCULAR VOLUME 97.2 FL (78-98); MEAN PLATELET VOLUME 8.3 FL (7.4-10.4); MONOCYTES # (AUTO) 3.7 X10'3 (0-0.9); MONOCYTES % (AUTO) 12.7 % (2-12); NEUTROPHILS # (AUTO) 22.8 X10'3 (1.8-7.7); NEUTROPHILS % (AUTO) 78.8 % (42-75); PLATELET COUNT 535 X10'3 (140-440); RED BLOOD COUNT 3.18 X10'6 (4.20-5.60); RED CELL DISTRIBUTION WIDTH 14.2 % (11.5-14.5)
[2022-12-30] MEDS: CISatracurium besylate inj. 100 MG in normal saline 100ml IV soln 90 ML IV PRN (03:38)
[2022-12-30 03:50] LABS: ALANINE AMINOTRANSFERASE 336 U/L (12-78); ALBUMIN 4.1 G/DL (3.4-5.0); ALBUMIN/GLOBULIN RATIO 1.3 (1.1-1.5); ALKALINE PHOSPHATASE 282 IU/L (46-116); ANION GAP 9 (8-16); ASPARTATE AMINO TRANSFERASE 290 U/L (10-37); BILIRUBIN,TOTAL 0.6 MG/DL (0.1-1.0); BLOOD UREA NITROGEN 66 MG/DL (7-18); CALCIUM 9.9 MG/DL (8.5-10.1); CHLORIDE 105 MMOL/L (99-107); GLUCOSE 128 MG/DL (70-104); MAGNESIUM 2.6 MG/DL (1.5-2.4); PHOSPHORUS 4.6 MG/DL (2.3-4.5); POTASSIUM 4.1 MMOL/L (3.5-5.1); PREALBUMIN 35.3 MG/DL (19-36); SODIUM 147 MMOL/L (135-145); TOTAL CARBON DIOXIDE 33.2 MMOL/L (24-32); TOTAL PROTEIN 7.3 G/DL (6.4-8.2); eGFR 63 ML/MIN
[2022-12-30 04:13] LABS: BUN/CREATININE RATIO 70.2 (6.6-38.0)
[2022-12-30 04:15] LABS: CREATININE 0.94 MG/DL (0.40-0.90)
[2022-12-30 04:17] LABS: ABG BASE EXCESS 8.1 mmol/L (-2.0-2.0); ABG HCO3 32.9 mmol/L (22.0-26.0); ABG OXYGEN SATURATION 90.5 % (94-97); ABG PCO2 (T) 47.1 mmHg (32.0-45.0); ABG PO2 (T) 61.4 mmHg (75.0-100.0); FCOHb 0.3 % (0.0-3.9); FMetHb 0.2 % (0.0-1.5); PATIENT TEMPERATURE 37.1; PEEP 8 cm H2O; RESPIRATORY RATE 20 b/min; TIDAL VOLUME 400 mL; TOTAL HEMOGLOBIN 11.6 G/dl (12.0-16.0)
--- NOTE | 2022-12-30 06:28 | NUR ---
Problems reprioritized. Patient report given, questions answered & plan of care reviewed with Aminta RAMOS.
--- NOTE | 2022-12-30 07:06 | NUR ---
Patient in room CICU 2010. I have received report from Naila RAMOS and had the opportunity to ask questions and assume patient care.
[2022-12-30 07:32] LABS: PLATELET ESTIMATE INCREASED; TOTAL CELLS COUNTED 100
[2022-12-30] MEDS: docusate sodium 100mg/10ml UD cup OGT SCH ×2 (08:00→20:45)
[2022-12-30] MEDS: Potassium Cl inj 40 MEQ in normal saline 250ml IV soln 250 ML IV SCH (08:00)
[2022-12-30] MEDS: sodium chloride 1gm tablet PO SCH (08:00)
[2022-12-30] MEDS: K and/or MAG REPLACEMENT MC SCH ×2 (08:00→20:00)
[2022-12-30] MEDS: pantoprazole 40MG/NS 100ML BAG 100 ML IV SCH (08:20)
[2022-12-30] MEDS: acetaZOLAMIDE IV 500mg inj IV SCH ×3 (08:20→15:49)
[2022-12-30] MEDS: folic acid 1mg/0.2ml inj IV SCH (08:22)
[2022-12-30] MEDS: piperacillin/tazo 3.375gm/50ml 50 ML IV SCH ×2 (08:22→15:49)
[2022-12-30] MEDS: liothyronine sod 5mcg tablet PO SCH ×2 (08:22→20:49)
[2022-12-30] MEDS: MULTIVIT-MIN/FERROUS GLUCONATE 9 MG/15 ML LIQUID OGT SCH (08:22)
[2022-12-30] MEDS: thiamine 100mg/ml 2ml inj. IV SCH (08:23)
[2022-12-30] MEDS: levoTHYROXINE 88mcg tablet PO SCH (08:23)
[2022-12-30] MEDS: FLUoxetine 20mg capsule PO SCH (08:23)
[2022-12-30] MEDS: heparin, porcine 5000 units/ml vial SQ SCH ×2 (08:24→15:49)
[2022-12-30] MEDS: fentaNYL 50mcg/ml PF inj. 2,500 MCG in normal saline 250ml IV soln 200 ML IV PRN ×2 (08:30→18:03)
[2022-12-30] MEDS: NORepinephrine 8mg/ 250ml NS 250 ML IV SCH (08:51)
--- NOTE | 2022-12-30 10:45 | NUR ---
Rounds note Lines central line 9 days old, drips; fentanyl and propofol, labs no 147 K 4.1 mag 2.6 phos 4.6 ast 290 alt 336 alkphos 282 wbc 29.0 plt 535, and meds reviewed new orders; precedex to wean fentanyl and propfol to work towards weaning from vent dilaudid 1mg Q2h PRN dilaudid 2mg Q2h PRN Haldol 10mg now haldol 5mg Q1h PRN follow up on picc order D/C scheduled potassium replacement and sodium tabs
[2022-12-30] MEDS ORDERED: haloperidol lactate 5mg/ml inj IM PRN (10:55)
[2022-12-30] MEDS ORDERED: HYDROmorphone 1 mg/ml syringe IV PRN (10:55)
[2022-12-30] MEDS ORDERED: haloperidol lactate 5mg/ml inj IM ONE (10:55)
[2022-12-30] MEDS: dexmedetomidin/NS 400mcg/100ml 100 ML IV SCH ×2 (11:26→18:00)
--- NOTE | 2022-12-30 12:08 | NUR ---
Iggy from poison control called updated on status and labs, all questions answered to satisfaction
--- NOTE | 2022-12-30 12:41 | NUR ---
F/u 12/30: Pt remains intubated tolerating TF at goal GRV WNL. Rectal tube in place w/ 800ml and 850ml output past two consecutive days per EMR; MD agreeable to stopping colace. Propofol at 14.729ml/hr visualized at bedside this AM providing additional 389 kcals/day; if increases may need to adjust EN recs. Serum Na 147mmol/L this AM w/ PO NS QID to stop per MD. Will continue to follow. Recommendations: 1) Given Propofol at 14.729 mL/hr (389 kcal/day), continuous Vital HP via OGT with 60 mL/hr goal rate to provide 1440 mL volume/day, 1440 kcal, 126 g protein, and 1204 mL water 2) Monitor Propofol rate and need to adjust recs; IF Propofol discontinued, continuous EN using Vital AF at 65 mL/hr to provide 1560ml volume/day, 1872 kcal, 1265ml water, and 117g protein 3) Additional water flush per MD given prior hyponatremia; monitor serum Na 4) PALB q Friday/; Daily scaled weights 5) Routine Thiamine, Folic acid, and MVM with Iron for EtOH per MD 6) bowel care per rx; consider routine anti-diarrheal if elevated rectal tube output persists Addendum: 12/30/22 at [address] Amended: Links added.
--- NOTE | 2022-12-30 18:45 | NUR ---
Problems reprioritized. Patient report given, questions answered & plan of care reviewed with Ulises RAMOS.
[2022-12-30] MEDS: insulin glargine (Lantus) pen - multi-dose SQ SCH (21:30)
[2022-12-31] VITALS (35 sets, daily range): BP systolic 100–133; BP diastolic 56–76
[2022-12-31] MEDS: acetaZOLAMIDE IV 500mg inj IV SCH ×3 (00:18→16:25)
[2022-12-31] MEDS: piperacillin/tazo 3.375gm/50ml 50 ML IV SCH ×3 (00:19→16:25)
[2022-12-31] MEDS: heparin, porcine 5000 units/ml vial SQ SCH ×3 (00:19→16:25)
[2022-12-31] MEDS: risperiDONE 2mg tablet PO SCH ×2 (00:24→07:46)
[2022-12-31] MEDS: NORepinephrine 8mg/ 250ml NS 250 ML IV SCH ×2 (02:20→19:49)
[2022-12-31] MEDS: methylPREDNISolone sod succ/PF 40mg inj. IV SCH ×4 (02:23→20:59)
[2022-12-31] MEDS: furosemide 40mg/4ml inj IV SCH ×4 (02:23→20:59)
[2022-12-31 02:35] LABS: BASOPHILS % (AUTO) 0.1 % (0-1); EOSINOPHILS # (AUTO) 0.1 X10'3 (0-0.9); EOSINOPHILS % (AUTO) 0.3 % (0-6); HEMATOCRIT 29.5 % (35.0-45.0); HEMOGLOBIN 9.9 g/dl (12.0-16.0); LYMPHOCYTES % (AUTO) 10.5 % (21-51); MEAN CORPUSCULAR HEMOGLOBIN 32.7 PG (27.0-31.0); MEAN CORPUSCULAR HGB CONC 33.7 g/dL (33.0-36.5); MEAN CORPUSCULAR VOLUME 96.9 FL (78-98); MEAN PLATELET VOLUME 7.8 FL (7.4-10.4); MONOCYTES % (AUTO) 10.8 % (2-12); NEUTROPHILS # (AUTO) 21.9 X10'3 (1.8-7.7); NEUTROPHILS % (AUTO) 78.3 % (42-75); PLATELET COUNT 528 X10'3 (140-440); RED BLOOD COUNT 3.05 X10'6 (4.20-5.60); RED CELL DISTRIBUTION WIDTH 14.4 % (11.5-14.5)
[2022-12-31 02:43] LABS: WHITE BLOOD COUNT 28.1 X10'3 (4.5-11.0)
[2022-12-31 03:02] LABS: ALANINE AMINOTRANSFERASE 298 U/L (12-78); ALBUMIN 4.1 G/DL (3.4-5.0); ALBUMIN/GLOBULIN RATIO 1.3 (1.1-1.5); ALKALINE PHOSPHATASE 250 IU/L (46-116); ANION GAP 14 (8-16); ASPARTATE AMINO TRANSFERASE 161 U/L (10-37); BILIRUBIN,TOTAL 0.5 MG/DL (0.1-1.0); BLOOD UREA NITROGEN 71 MG/DL (7-18); CALCIUM 9.9 MG/DL (8.5-10.1); CHLORIDE 107 MMOL/L (99-107); CREATININE 0.78 MG/DL (0.40-0.90); GLUCOSE 52 MG/DL (70-104); MAGNESIUM 2.7 MG/DL (1.5-2.4); PHOSPHORUS 5.8 MG/DL (2.3-4.5); SODIUM 150 MMOL/L (135-145); TOTAL CARBON DIOXIDE 28.7 MMOL/L (24-32); TOTAL PROTEIN 7.3 G/DL (6.4-8.2); eGFR 78 ML/MIN
[2022-12-31 03:08] LABS: POTASSIUM 2.9 MMOL/L (3.5-5.1)
[2022-12-31] MEDS ORDERED: potassium Cl 40MEQ/270ML bag 270 ML IV ONE ×2 (03:25→05:25)
[2022-12-31 03:36] LABS: PLATELET ESTIMATE INCREASED; TOTAL CELLS COUNTED 100
[2022-12-31 03:38] LABS: TOXIC GRANULATION 1+
[2022-12-31 03:40] LABS: ABG BASE EXCESS -0.6 mmol/L (-2.0-2.0); ABG HCO3 23.3 mmol/L (22.0-26.0); ABG OXYGEN SATURATION 98.1 % (94-97); ABG PCO2 (T) 35.2 mmHg (32.0-45.0); ABG PO2 (T) 125.8 mmHg (75.0-100.0); FCOHb 0.2 % (0.0-3.9); FMetHb 0.3 % (0.0-1.5); FO2Hb 97.6 % (94-97); PATIENT TEMPERATURE 36.8; PEEP 8 cm H2O; RESPIRATORY RATE 20 b/min; TIDAL VOLUME 400 mL; TOTAL HEMOGLOBIN 11.2 G/dl (12.0-16.0)
[2022-12-31] MEDS: dexmedetomidin/NS 400mcg/100ml 100 ML IV SCH ×4 (06:54→23:35)
[2022-12-31] MEDS: K and/or MAG REPLACEMENT MC SCH ×2 (07:21→19:33)
[2022-12-31] MEDS: docusate sodium 100mg/10ml UD cup OGT SCH ×2 (07:22→20:59)
[2022-12-31] MEDS: liothyronine sod 5mcg tablet PO SCH ×2 (07:45→20:59)
[2022-12-31] MEDS: pantoprazole 40MG/NS 100ML BAG 100 ML IV SCH (07:45)
[2022-12-31] MEDS: MULTIVIT-MIN/FERROUS GLUCONATE 9 MG/15 ML LIQUID OGT SCH (07:46)
[2022-12-31] MEDS: thiamine 100mg/ml 2ml inj. IV SCH (07:46)
[2022-12-31] MEDS: levoTHYROXINE 88mcg tablet PO SCH (07:47)
[2022-12-31] MEDS: FLUoxetine 20mg capsule PO SCH (07:47)
[2022-12-31] MEDS: folic acid 1mg/0.2ml inj IV SCH (07:49)
[2022-12-31] MEDS: insulin regular, human U-100 3ml vial - multi-dose SQ SCH ×3 (08:52→21:17)
--- NOTE | 2022-12-31 10:30 | NUR ---
Discussed during rounds--sedation off at 0530, not following commands, passive SBT done, pt on spontaneous and went apneic and placed back on rate. MD ordered to DC fentanyl and propofol, okay to resume precedex. MD was informed that pt combative last night and haldol was given and precedex increased to 1.1. MD ordered CT of head and EEG.
--- NOTE | 2022-12-31 11:55 | NUR ---
F/u: Pt remains intubated and no longer sedated. Recommend formula change to Vital AF with 65 mL/hr goal rate, d/w MD and RN and updated EMR. Will continue to follow closely. Recommendations: 1) Given Propofol discontinued, continuous EN using Vital AF at 65 mL/hr to provide 1560 ml volume/day, 1872 kcal, 1265 ml water, and 117 g protein 2) Additional water flush per MD given prior hyponatremia; monitor serum Na 3) PALB q Friday/ 4) Daily scaled weights 5) Routine Thiamine, Folic acid, and MVM with Iron for EtOH per MD 6) bowel care per rx; consider routine anti-diarrheal if elevated rectal tube output persists Addendum: 12/31/22 at [address] Amended: Links added.
[2022-12-31] MEDS ORDERED: risperiDONE 2mg tablet PO SCH (14:09)
--- NOTE | 2022-12-31 17:00 | NUR ---
Dr. Villa at bedside to see if pt will follow commands. Pt opened eyes and did not follow commands. Dr. Villa informed of CT results and EEG still pending report. Informed Dr. Villa pt is on precedex and becomes very agitated and combative when turned off. okay with precedex and haldol prn.
--- NOTE | 2022-12-31 18:42 | NUR ---
Problems reprioritized. Patient report given, questions answered & plan of care reviewed with Mac RN.
--- NOTE | 2022-12-31 20:45 | NUR ---
Communication -Dr. Villa called for update on pt. Update given. No new orders.
[2022-12-31] MEDS: insulin glargine (Lantus) pen - multi-dose SQ SCH (21:20)
--- NOTE | 2022-12-31 21:35 | NUR ---
Family Communication -Pt's called for update on pt and to see if EEG results have come in. Informed him that MD will be able to go over EEG results with him tomorrow.
[2023-01-01] VITALS (35 sets, daily range): BP systolic 98–146; BP diastolic 54–80
[2023-01-01] MEDS: piperacillin/tazo 3.375gm/50ml 50 ML IV SCH ×3 (00:58→16:04)
[2023-01-01] MEDS: heparin, porcine 5000 units/ml vial SQ SCH ×3 (00:58→16:05)
[2023-01-01] MEDS: furosemide 40mg/4ml inj IV SCH ×2 (02:41→09:59)
[2023-01-01] MEDS: methylPREDNISolone sod succ/PF 40mg inj. IV SCH ×2 (02:41→09:58)
[2023-01-01] MEDS: insulin regular, human U-100 3ml vial - multi-dose SQ SCH ×3 (02:54→14:08)
[2023-01-01 03:26] LABS: HEMOGLOBIN 10.5 g/dl (12.0-16.0)
[2023-01-01 03:28] LABS: BASOPHILS % (AUTO) 0.1 % (0-1); EOSINOPHILS % (AUTO) 0.1 % (0-6); HEMATOCRIT 31.6 % (35.0-45.0); LYMPHOCYTES # (AUTO) 2.4 X10'3 (1.1-4.8); LYMPHOCYTES % (AUTO) 8.4 % (21-51); MEAN CORPUSCULAR HGB CONC 33.1 g/dL (33.0-36.5); MEAN CORPUSCULAR VOLUME 96.5 FL (78-98); MONOCYTES # (AUTO) 2.5 X10'3 (0-0.9); MONOCYTES % (AUTO) 8.8 % (2-12); NEUTROPHILS # (AUTO) 23.8 X10'3 (1.8-7.7); NEUTROPHILS % (AUTO) 82.6 % (42-75); PLATELET COUNT 613 X10'3 (140-440); RED BLOOD COUNT 3.28 X10'6 (4.20-5.60); RED CELL DISTRIBUTION WIDTH 14.6 % (11.5-14.5)
[2023-01-01 03:30] LABS: WHITE BLOOD COUNT 28.8 X10'3 (4.5-11.0)
[2023-01-01 03:40] LABS: ALANINE AMINOTRANSFERASE 320 U/L (12-78); ALBUMIN/GLOBULIN RATIO 1.1 (1.1-1.5); ALKALINE PHOSPHATASE 242 IU/L (46-116); ANION GAP 14 (8-16); ASPARTATE AMINO TRANSFERASE 126 U/L (10-37); BILIRUBIN,TOTAL 0.4 MG/DL (0.1-1.0); BLOOD UREA NITROGEN 67 MG/DL (7-18); CALCIUM 9.8 MG/DL (8.5-10.1); CHLORIDE 112 MMOL/L (99-107); CREATININE 0.87 MG/DL (0.40-0.90); GLUCOSE 191 MG/DL (70-104); MAGNESIUM 2.6 MG/DL (1.5-2.4); PHOSPHORUS 4.9 MG/DL (2.3-4.5); POTASSIUM 3.2 MMOL/L (3.5-5.1); SODIUM 151 MMOL/L (135-145); TOTAL CARBON DIOXIDE 25.2 MMOL/L (24-32); TOTAL PROTEIN 7.6 G/DL (6.4-8.2); eGFR 69 ML/MIN
[2023-01-01 03:54] LABS: PLATELET ESTIMATE INCREASED; SMUDGE CELLS FEW; TOTAL CELLS COUNTED 100
[2023-01-01 04:00] LABS: ABG HCO3 23.2 mmol/L (22.0-26.0); ABG OXYGEN SATURATION 97.8 % (94-97); ABG PCO2 (T) 34.5 mmHg (32.0-45.0); ABG PO2 (T) 111.9 mmHg (75.0-100.0); FCOHb 0.3 % (0.0-3.9); FMetHb 0.1 % (0.0-1.5); FO2Hb 97.4 % (94-97); PEEP 8 cm H2O; RESPIRATORY RATE 20 b/min; TIDAL VOLUME 400 mL; TOTAL HEMOGLOBIN 11.5 G/dl (12.0-16.0)
[2023-01-01] MEDS ORDERED: potassium Cl 40MEQ/270ML bag 270 ML IV ONE (04:10)
--- NOTE | 2023-01-01 05:00 | NUR ---
Neuro Status -Pt LANE, does not follow instructions. Pt is able to make eye contact and moves her head to watch TV, which appears purposeful. Pt has been calm and noncombative.
[2023-01-01] MEDS: dexmedetomidin/NS 400mcg/100ml 100 ML IV SCH (05:18)
--- NOTE | 2023-01-01 06:30 | NUR ---
Patient in room CICU 2010. I have received report from RICHARD Cho and had the opportunity to ask questions and assume patient care.
[2023-01-01] MEDS: K and/or MAG REPLACEMENT MC SCH ×2 (08:00→20:00)
[2023-01-01] MEDS: pantoprazole 40MG/NS 100ML BAG 100 ML IV SCH (09:16)
[2023-01-01] MEDS: liothyronine sod 5mcg tablet PO SCH ×2 (09:57→20:00)
[2023-01-01] MEDS: docusate sodium 100mg/10ml UD cup OGT SCH ×2 (09:58→20:00)
[2023-01-01] MEDS: thiamine 100mg/ml 2ml inj. IV SCH (09:59)
[2023-01-01] MEDS: folic acid 1mg/0.2ml inj IV SCH (10:00)
[2023-01-01] MEDS: levoTHYROXINE 88mcg tablet PO SCH (10:01)
[2023-01-01] MEDS: FLUoxetine 20mg capsule PO SCH (10:08)
[2023-01-01] MEDS: MULTIVIT-MIN/FERROUS GLUCONATE 9 MG/15 ML LIQUID OGT SCH (10:08)
[2023-01-01] MEDS ORDERED: DEXTROSE 15 GM of carb/4 tabs (each vial/BOTTLE has 4 tablets) OGT PRN ×2 (10:33→10:34)
[2023-01-01] MEDS ORDERED: Neutra Phos packet OGT PRN (10:35)
[2023-01-01] MEDS ORDERED: risperiDONE 2mg tablet OGT SCH (11:11)
--- NOTE | 2023-01-01 11:11 | NUR ---
F/u: Patient's serum Na is 151, up from 150 yesterday. requests to begin 100 mL water flushes Q4H, EMR updated. Will continue to follow closely. Addendum: 01/01/23 at [address] Amended: Links added.
[2023-01-01] MEDS: acetaminophen 325mg/10.15ml oral unit dose solution OGT PRN (13:56)
--- NOTE | 2023-01-01 15:05 | NUR ---
Dr Villa notified regarding HR sustaining in 130's, RR in the 30's while on A/C PRVC mode on vent, and temp of 38.9 after administration of PO Tylenol. No orders received, Dr Villa states "I will look into it and put some orders in".
[2023-01-01] MEDS: potassium Cl 40MEQ/270ML bag 270 ML IV PRN (16:04)
--- NOTE | 2023-01-01 18:23 | NUR ---
Problems reprioritized. Patient report given, questions answered & plan of care reviewed with Marquis RN.
[2023-01-01] MEDS: insulin glargine (Lantus) pen - multi-dose SQ SCH (23:11)
[2023-01-02] VITALS (37 sets, daily range): BP systolic 102–149; BP diastolic 51–84
[2023-01-02] MEDS: heparin, porcine 5000 units/ml vial SQ SCH ×3 (00:57→16:15)
[2023-01-02] MEDS: piperacillin/tazo 3.375gm/50ml 50 ML IV SCH ×3 (00:57→16:14)
[2023-01-02] MEDS: insulin regular, human U-100 3ml vial - multi-dose SQ SCH ×4 (02:15→21:08)
[2023-01-02 02:46] LABS: BASOPHILS # (AUTO) 0.1 X10'3 (0-0.2); BASOPHILS % (AUTO) 0.2 % (0-1); EOSINOPHILS # (AUTO) 0.2 X10'3 (0-0.9); EOSINOPHILS % (AUTO) 0.6 % (0-6); RED CELL DISTRIBUTION WIDTH 15.1 % (11.5-14.5)
[2023-01-02 02:49] LABS: HEMATOCRIT 32.9 % (35.0-45.0); HEMOGLOBIN 10.8 g/dl (12.0-16.0); LYMPHOCYTES # (AUTO) 4.3 X10'3 (1.1-4.8); LYMPHOCYTES % (AUTO) 12.6 % (21-51); MEAN CORPUSCULAR HEMOGLOBIN 32.2 PG (27.0-31.0); MEAN CORPUSCULAR HGB CONC 32.8 g/dL (33.0-36.5); MEAN CORPUSCULAR VOLUME 98.2 FL (78-98); MONOCYTES # (AUTO) 3.8 X10'3 (0-0.9); MONOCYTES % (AUTO) 10.9 % (2-12); NEUTROPHILS # (AUTO) 26.2 X10'3 (1.8-7.7); NEUTROPHILS % (AUTO) 75.7 % (42-75); PLATELET COUNT 663 X10'3 (140-440); RED BLOOD COUNT 3.35 X10'6 (4.20-5.60)
[2023-01-02 02:54] LABS: WHITE BLOOD COUNT 34.6 X10'3 (4.5-11.0)
[2023-01-02 03:03] LABS: ALANINE AMINOTRANSFERASE 268 U/L (12-78); ALBUMIN 3.9 G/DL (3.4-5.0); ALBUMIN/GLOBULIN RATIO 1.1 (1.1-1.5); ALKALINE PHOSPHATASE 208 IU/L (46-116); ANION GAP 12 (8-16); ASPARTATE AMINO TRANSFERASE 81 U/L (10-37); BILIRUBIN,TOTAL 0.4 MG/DL (0.1-1.0); BLOOD UREA NITROGEN 58 MG/DL (7-18); BUN/CREATININE RATIO 69.9 (10.0-20.0); CALCIUM 9.5 MG/DL (8.5-10.1); CHLORIDE 120 MMOL/L (99-107); CREATININE 0.83 MG/DL (0.40-0.90); GLUCOSE 213 MG/DL (70-104); MAGNESIUM 2.4 MG/DL (1.5-2.4); PHOSPHORUS 3.1 MG/DL (2.3-4.5); POTASSIUM 3.2 MMOL/L (3.5-5.1); TOTAL CARBON DIOXIDE 22.8 MMOL/L (24-32); TOTAL PROTEIN 7.3 G/DL (6.4-8.2); eGFR 72 ML/MIN
[2023-01-02 03:06] LABS: SODIUM 155 MMOL/L (135-145)
[2023-01-02 03:24] LABS: PLATELET ESTIMATE INCREASED; TOTAL CELLS COUNTED 100
[2023-01-02 03:25] LABS: HYPERSEGMENTED NEUTROPHILS 1+; LARGE PLATELETS FEW; SMUDGE CELLS FEW
--- NOTE | 2023-01-02 03:44 | NUR ---
Communication -Called Dr. Villa regarding critical WBC, fever, and critical sodium. Per , Dr. Feliz has been consulted regarding infection. Received order to increase free water flush.
[2023-01-02 03:47] LABS: ABG BASE EXCESS -5.3 mmol/L (-2.0-2.0); ABG HCO3 17.8 mmol/L (22.0-26.0); ABG OXYGEN SATURATION 98.4 % (94-97); ABG PCO2 (T) 28.8 mmHg (32.0-45.0); FCOHb 0.3 % (0.0-3.9); FMetHb 0.3 % (0.0-1.5); FO2Hb 97.8 % (94-97); PATIENT TEMPERATURE 38.2; PEEP 8 cm H2O; RESPIRATORY RATE 20 b/min; TIDAL VOLUME 400 mL; TOTAL HEMOGLOBIN 11.6 G/dl (12.0-16.0)
--- NOTE | 2023-01-02 06:30 | NUR ---
Patient in room CICU 2010. I have received report from RICHARD Cho and had the opportunity to ask questions and assume patient care.
[2023-01-02] MEDS: K and/or MAG REPLACEMENT MC SCH ×2 (08:00→19:16)
[2023-01-02] MEDS: pantoprazole 40MG/NS 100ML BAG 100 ML IV SCH (08:27)
[2023-01-02] MEDS: potassium Cl 40MEQ/270ML bag 270 ML IV PRN (08:27)
[2023-01-02] MEDS: liothyronine sod 5mcg tablet PO SCH ×2 (08:27→20:51)
[2023-01-02] MEDS: docusate sodium 100mg/10ml UD cup OGT SCH ×2 (08:28→20:00)
[2023-01-02] MEDS: FLUoxetine 20mg capsule PO SCH (08:28)
[2023-01-02] MEDS: thiamine 100mg/ml 2ml inj. IV SCH (08:28)
[2023-01-02] MEDS: folic acid 1mg/0.2ml inj IV SCH (08:28)
[2023-01-02] MEDS: levoTHYROXINE 88mcg tablet PO SCH (08:28)
[2023-01-02] MEDS: MULTIVIT-MIN/FERROUS GLUCONATE 9 MG/15 ML LIQUID OGT SCH (08:29)
--- NOTE | 2023-01-02 12:30 | NUR ---
tube feed on hold D/T high GRV of 660. Will reassess in 2 hours, per protocol.
[2023-01-02] MEDS: acetaminophen 325mg/10.15ml oral unit dose solution OGT PRN ×2 (12:56→20:52)
[2023-01-02] MEDS: HYDROmorphone 1 mg/ml syringe IV PRN (14:23)
[2023-01-02 14:49] LABS: C DIFF SPECIMEN=DIARRHEA? ACCEPTABLE; C DIFFICILE TOXINS A&B NEGATIVE (Neg)
--- NOTE | 2023-01-02 18:27 | NUR ---
Problems reprioritized. Patient report given, questions answered & plan of care reviewed with Marquis RN.
[2023-01-02] MEDS: insulin glargine (Lantus) pen - multi-dose SQ SCH (21:07)
[2023-01-02] MEDS ORDERED: VANCOMYCIN 1,500MG in normal saline IV soln 300 ML IV ONE (23:10)
[2023-01-03] VITALS (33 sets, daily range): BP systolic 112–149; BP diastolic 50–69
[2023-01-03] MEDS: metroNIDAZOLE 500mg tablet PO SCH ×4 (00:01→23:26)
[2023-01-03] MEDS: cefepime 2g/NS 100ml ADVANTAGE 100 ML IV SCH ×4 (00:02→23:27)
[2023-01-03] MEDS: heparin, porcine 5000 units/ml vial SQ SCH ×4 (00:02→23:27)
[2023-01-03] MEDS: insulin regular, human U-100 3ml vial - multi-dose SQ SCH ×2 (02:25→21:31)
[2023-01-03 03:01] LABS: BASOPHILS # (AUTO) 0.1 X10'3 (0-0.2); BASOPHILS % (AUTO) 0.3 % (0-1); EOSINOPHILS # (AUTO) 0.6 X10'3 (0-0.9); HEMATOCRIT 29.2 % (35.0-45.0); HEMOGLOBIN 9.6 g/dl (12.0-16.0); LYMPHOCYTES # (AUTO) 4.1 X10'3 (1.1-4.8); LYMPHOCYTES % (AUTO) 12.5 % (21-51); MEAN CORPUSCULAR HEMOGLOBIN 32.6 PG (27.0-31.0); MEAN CORPUSCULAR HGB CONC 32.9 g/dL (33.0-36.5); MEAN CORPUSCULAR VOLUME 98.9 FL (78-98); MEAN PLATELET VOLUME 7.7 FL (7.4-10.4); MONOCYTES % (AUTO) 9.1 % (2-12); NEUTROPHILS # (AUTO) 24.8 X10'3 (1.8-7.7); NEUTROPHILS % (AUTO) 76.1 % (42-75); PLATELET COUNT 564 X10'3 (140-440); RED BLOOD COUNT 2.95 X10'6 (4.20-5.60); RED CELL DISTRIBUTION WIDTH 15.5 % (11.5-14.5)
[2023-01-03 03:04] LABS: WHITE BLOOD COUNT 32.6 X10'3 (4.5-11.0)
[2023-01-03 03:15] LABS: ALANINE AMINOTRANSFERASE 193 U/L (12-78); ALBUMIN 3.6 G/DL (3.4-5.0); ALBUMIN/GLOBULIN RATIO 1.1 (1.1-1.5); ALKALINE PHOSPHATASE 154 IU/L (46-116); ANION GAP 15 (8-16); ASPARTATE AMINO TRANSFERASE 57 U/L (10-37); BILIRUBIN,TOTAL 0.5 MG/DL (0.1-1.0); BLOOD UREA NITROGEN 45 MG/DL (7-18); BUN/CREATININE RATIO 64.3 (10.0-20.0); CALCIUM 9.4 MG/DL (8.5-10.1); CHLORIDE 123 MMOL/L (99-107); GLUCOSE 152 MG/DL (70-104); MAGNESIUM 2.6 MG/DL (1.5-2.4); PHOSPHORUS 3.6 MG/DL (2.3-4.5); TOTAL PROTEIN 6.9 G/DL (6.4-8.2); eGFR 88 ML/MIN
[2023-01-03 03:21] LABS: SODIUM 158 MMOL/L (135-145)
--- NOTE | 2023-01-03 03:33 | NUR ---
Communication -Called Dr. Villa regarding critical WBC, potassium and sodium. Order received for D5W.
[2023-01-03 03:46] LABS: ABG BASE EXCESS -5.5 mmol/L (-2.0-2.0); ABG HCO3 17.4 mmol/L (22.0-26.0); ABG OXYGEN SATURATION 98.4 % (94-97); ABG PCO2 (T) 27.1 mmHg (32.0-45.0); ABG PO2 (T) 136.2 mmHg (75.0-100.0); ALLEN'S TEST POSITIVE; FCOHb 0.3 % (0.0-3.9); FMetHb 0.2 % (0.0-1.5); FO2Hb 97.9 % (94-97); PATIENT TEMPERATURE 37.9; PEEP 5 cm H2O; RESPIRATORY RATE 20 b/min; TIDAL VOLUME 400 mL; TOTAL HEMOGLOBIN 10.6 G/dl (12.0-16.0)
[2023-01-03 03:49] LABS: PLATELET ESTIMATE INCREASED; TOTAL CELLS COUNTED 100
[2023-01-03 03:50] LABS: HYPERSEGMENTED NEUTROPHILS 1+; LARGE PLATELETS FEW; SMUDGE CELLS FEW
[2023-01-03] MEDS: dextrose 5%-water 1,000 ML IV SCH ×3 (03:54→22:58)
[2023-01-03] MEDS: potassium Cl 40MEQ/270ML bag 270 ML IV PRN ×3 (03:54→08:49)
--- NOTE | 2023-01-03 05:30 | NUR ---
Pt vomited. Turned tube feed off and placed pt on low intermittent suction and got 750 ml of gastric residual. Endorsed to day shift RN.
[2023-01-03] MEDS: K and/or MAG REPLACEMENT MC SCH ×2 (08:00→20:00)
[2023-01-03] MEDS: docusate sodium 100mg/10ml UD cup OGT SCH ×2 (08:00→20:02)
[2023-01-03] MEDS: MULTIVIT-MIN/FERROUS GLUCONATE 9 MG/15 ML LIQUID OGT SCH (08:49)
[2023-01-03] MEDS: FLUoxetine 20mg capsule PO SCH (08:49)
[2023-01-03] MEDS: valacyclovir 500mg tablet PO SCH ×2 (08:49→20:02)
[2023-01-03] MEDS: levoTHYROXINE 88mcg tablet PO SCH (08:49)
[2023-01-03] MEDS: thiamine 100mg/ml 2ml inj. IV SCH (08:50)
[2023-01-03] MEDS: pantoprazole 40MG/NS 100ML BAG 100 ML IV SCH (08:50)
[2023-01-03] MEDS: folic acid 1mg/0.2ml inj IV SCH (08:55)
[2023-01-03] MEDS: liothyronine sod 5mcg tablet PO SCH ×2 (08:55→20:03)
[2023-01-03] MEDS: vancomycin/NS 1 GM ADD-VANTAGE 250 ML IV SCH ×2 (11:06→22:22)
--- NOTE | 2023-01-03 14:21 | NUR ---
TPN consult: Per electrical maintenance engineer pt with elevated GRV and emesis this morning. OGT was placed on LIS and pt with 1150 mL output so far today per I&O. Pt to begin TPN per MD. RN states pt with a PICC in place. TPN recommendations below have been d/w clinical pharmacist. Noted pt receiving D5 at 100 mL/hr providing 408 kcal/day d/t hypernatremia. Per MD D5 to continue even when TPN is initiated. Recommendations have been adjusted accordingly as to not overfeed on the vent. LBM 01/03 with 500 mL stool output from rectal tube per I&O. Will continue to follow and make recommendations as appropriate. Recommendations: 1) Given D5 at 100 mL/hr (408 kcal/day), continuous TPN per MD using 2:1 Clinimix non-E 02/24 with 80 mL/hr goal rate and additional 100 mL 20% ILE to run at 8.33 mL/hr for 12 hrs a day. To provide 1920 mL volume/day, 96 g AA, 288 g dext (3.33 mg/kg/min), and 1563 kcal 2) Once okay to transition back to EN, continuous EN using Vital AF at 65 mL/hr to provide 1560 ml volume/day, 1872 kcal, 1265 ml water, and 117 g protein 3) PALB and TG q Friday/ 4) Daily scaled weights 5) Routine Thiamine, Folic acid, and MVM with Iron for EtOH per MD 6) Bowel care per rx; consider routine anti-diarrheal if elevated rectal tube output persists Addendum: 01/03/23 at [address] Amended: Links added.
[2023-01-03 14:36] LABS: POTASSIUM 3.8 MMOL/L (3.5-5.1)
[2023-01-03] MEDS ORDERED: DEXMEDETOMIDINE IN 0.9 % NACL 50 ML IV SCH (15:30)
[2023-01-03] MEDS: dexmedetomidine inj. 400 MCG in normal saline 100ml IV soln 96 ML IV SCH (15:43)
[2023-01-03] MEDS ORDERED: MANGANESE IV SCH (20:00)
[2023-01-03] MEDS ORDERED: [UNRECOGNIZED DRUG - OTHER] IV SCH (20:00)
[2023-01-03] MEDS ORDERED: ZINC IV SCH (20:00)
[2023-01-03] MEDS ORDERED: CHROMIC CHLORIDE IV SCH (20:00)
[2023-01-03] MEDS ORDERED: COPPER IV SCH (20:00)
[2023-01-03] MEDS ORDERED: SELENIUM IV SCH (20:00)
[2023-01-03] MEDS ORDERED: Dextrose 10%-water IV solution 1,000 ML IV PRN (20:30)
[2023-01-03] MEDS: insulin glargine (Lantus) pen - multi-dose SQ SCH (21:33)
[2023-01-04] VITALS (29 sets, daily range): BP systolic 109–138; BP diastolic 45–71
[2023-01-04] MEDS: insulin regular, human U-100 3ml vial - multi-dose SQ SCH ×4 (02:33→22:14)
[2023-01-04 02:48] LABS: ABG BASE EXCESS -7.6 mmol/L (-2.0-2.0); ABG HCO3 15.3 mmol/L (22.0-26.0); ABG PCO2 (T) 23.3 mmHg (32.0-45.0); ABG PO2 (T) 116.8 mmHg (75.0-100.0); ALLEN'S TEST POSITIVE; FCOHb 0.3 % (0.0-3.9); FMetHb 0.4 % (0.0-1.5); FO2Hb 97.3 % (94-97); PATIENT TEMPERATURE 37.5; PEEP 5 cm H2O; RESPIRATORY RATE 20 b/min; TIDAL VOLUME 400 mL; TOTAL HEMOGLOBIN 8.4 G/dl (12.0-16.0)
[2023-01-04] MEDS: dexmedetomidine inj. 400 MCG in normal saline 100ml IV soln 96 ML IV SCH (03:33)
[2023-01-04 04:07] LABS: ALANINE AMINOTRANSFERASE 130 U/L (12-78); ALBUMIN 2.8 G/DL (3.4-5.0); ALKALINE PHOSPHATASE 111 IU/L (46-116); ANION GAP 8 (8-16); ASPARTATE AMINO TRANSFERASE 45 U/L (10-37); BILIRUBIN,TOTAL 0.5 MG/DL (0.1-1.0); BLOOD UREA NITROGEN 25 MG/DL (7-18); BUN/CREATININE RATIO 48.1 (10.0-20.0); CALCIUM 8.5 MG/DL (8.5-10.1); CHLORIDE 120 MMOL/L (99-107); CREATININE 0.52 MG/DL (0.40-0.90); GLUCOSE 102 MG/DL (70-104); POTASSIUM 3.4 MMOL/L (3.5-5.1); SODIUM 148 MMOL/L (135-145); TOTAL CARBON DIOXIDE 19.6 MMOL/L (24-32); TOTAL PROTEIN 5.7 G/DL (6.4-8.2); eGFR > 90 ML/MIN
[2023-01-04 04:18] LABS: BASOPHILS # (AUTO) 0.1 X10'3 (0-0.2); BASOPHILS % (AUTO) 0.4 % (0-1); EOSINOPHILS # (AUTO) 0.6 X10'3 (0-0.9); EOSINOPHILS % (AUTO) 2.9 % (0-6); HEMATOCRIT 24.2 % (35.0-45.0); LYMPHOCYTES # (AUTO) 3.4 X10'3 (1.1-4.8); LYMPHOCYTES % (AUTO) 16.3 % (21-51); MEAN CORPUSCULAR HEMOGLOBIN 32.3 PG (27.0-31.0); MEAN CORPUSCULAR HGB CONC 33.1 g/dL (33.0-36.5); MEAN CORPUSCULAR VOLUME 97.5 FL (78-98); MONOCYTES # (AUTO) 1.5 X10'3 (0-0.9); MONOCYTES % (AUTO) 7.3 % (2-12); NEUTROPHILS # (AUTO) 15.3 X10'3 (1.8-7.7); NEUTROPHILS % (AUTO) 73.1 % (42-75); PLATELET COUNT 396 X10'3 (140-440); RED BLOOD COUNT 2.48 X10'6 (4.20-5.60); WHITE BLOOD COUNT 20.9 X10'3 (4.5-11.0)
[2023-01-04 04:38] LABS: MAGNESIUM 2.1 MG/DL (1.5-2.4); PHOSPHORUS 2.5 MG/DL (2.3-4.5); TRIGLYCERIDES 56 MG/DL (20-135)
[2023-01-04] MEDS: potassium Cl 40MEQ/270ML bag 270 ML IV PRN (04:47)
--- NOTE | 2023-01-04 06:21 | NUR ---
Problems reprioritized. Patient report given, questions answered & plan of care reviewed with RICHARD Hernandez.
[2023-01-04] MEDS: K and/or MAG REPLACEMENT MC SCH ×2 (07:46→20:00)
[2023-01-04] MEDS: MULTIVIT-MIN/FERROUS GLUCONATE 9 MG/15 ML LIQUID OGT SCH (07:55)
[2023-01-04] MEDS: docusate sodium 100mg/10ml UD cup OGT SCH ×2 (07:55→20:00)
[2023-01-04] MEDS: folic acid 1mg/0.2ml inj IV SCH (07:56)
[2023-01-04] MEDS: liothyronine sod 5mcg tablet PO SCH ×2 (07:57→20:00)
[2023-01-04] MEDS: HYDROmorphone 1 mg/ml syringe IV PRN ×3 (07:57→23:52)
[2023-01-04] MEDS: metroNIDAZOLE 500mg tablet PO SCH ×3 (07:58→23:51)
[2023-01-04] MEDS: FLUoxetine 20mg capsule PO SCH (07:58)
[2023-01-04] MEDS: thiamine 100mg/ml 2ml inj. IV SCH (07:59)
[2023-01-04] MEDS: heparin, porcine 5000 units/ml vial SQ SCH ×3 (07:59→23:51)
[2023-01-04] MEDS: levoTHYROXINE 88mcg tablet PO SCH (08:00)
[2023-01-04] MEDS: pantoprazole 40MG/NS 100ML BAG 100 ML IV SCH (08:00)
[2023-01-04] MEDS: dextrose 5%-water 1,000 ML IV SCH ×2 (08:08→19:32)
[2023-01-04] MEDS: fat emulsion 20% inj. 100 ML IV SCH (08:28)
[2023-01-04] MEDS: cefepime 2g/NS 100ml ADVANTAGE 100 ML IV SCH ×3 (08:36→23:50)
--- NOTE | 2023-01-04 10:00 | NUR ---
Dr. Villa rounded and stated to extubate the patient. Patient extubated and placed on 2L NC at 0955. Patient tolerated well.
[2023-01-04] MEDS: vancomycin/NS 1 GM ADD-VANTAGE 250 ML IV SCH ×2 (11:52→22:40)
[2023-01-04 13:13] LABS: HBSAG SCREEN Negative (Negative); HEP A AB, IGM Negative (Negative)
--- NOTE | 2023-01-04 18:22 | NUR ---
Patient in room CICU 2010. I have received report from RICHARD Hernandez and had the opportunity to ask questions and assume patient care.
[2023-01-04] MEDS: CHROMIC CHLORIDE IV SCH (20:00)
[2023-01-04] MEDS: [UNRECOGNIZED DRUG - OTHER] IV SCH (20:00)
[2023-01-04] MEDS: MANGANESE IV SCH (20:00)
[2023-01-04] MEDS: SELENIUM IV SCH (20:00)
[2023-01-04] MEDS: COPPER IV SCH (20:00)
[2023-01-04] MEDS: ZINC IV SCH (20:00)
[2023-01-04] MEDS: insulin glargine (Lantus) pen - multi-dose SQ SCH (22:12)
[2023-01-04] MEDS ORDERED: VANCOMYCIN LEVEL IV ONE (22:30)
[2023-01-04 23:26] LABS: VANCOMYCIN,TROUGH 8.9 UG/ML (6.0-14.0)
[2023-01-05] VITALS (19 sets, daily range): BP systolic 108–135; BP diastolic 48–81
[2023-01-05] MEDS: dexmedetomidine inj. 400 MCG in normal saline 100ml IV soln 96 ML IV SCH (01:03)
[2023-01-05] MEDS: HYDROmorphone 1 mg/ml syringe IV PRN ×3 (01:11→15:46)
[2023-01-05 03:01] LABS: ALANINE AMINOTRANSFERASE 109 U/L (12-78); ALBUMIN 2.7 G/DL (3.4-5.0); ALBUMIN/GLOBULIN RATIO 0.9 (1.1-1.5); ALKALINE PHOSPHATASE 95 IU/L (46-116); ANION GAP 10 (8-16); ASPARTATE AMINO TRANSFERASE 58 U/L (10-37); BILIRUBIN,TOTAL 0.3 MG/DL (0.1-1.0); BLOOD UREA NITROGEN 18 MG/DL (7-18); BUN/CREATININE RATIO 47.4 (10.0-20.0); CALCIUM 8.1 MG/DL (8.5-10.1); CHLORIDE 112 MMOL/L (99-107); CREATININE 0.38 MG/DL (0.40-0.90); GLUCOSE 105 MG/DL (70-104); MAGNESIUM 1.8 MG/DL (1.5-2.4); PHOSPHORUS 2.6 MG/DL (2.3-4.5); SODIUM 140 MMOL/L (135-145); TOTAL CARBON DIOXIDE 17.8 MMOL/L (24-32); TOTAL PROTEIN 5.6 G/DL (6.4-8.2); eGFR > 90 ML/MIN
[2023-01-05 03:03] LABS: BASOPHILS # (AUTO) 0.1 X10'3 (0-0.2); BASOPHILS % (AUTO) 0.4 % (0-1); EOSINOPHILS # (AUTO) 0.5 X10'3 (0-0.9); EOSINOPHILS % (AUTO) 2.4 % (0-6); HEMATOCRIT 24.6 % (35.0-45.0); HEMOGLOBIN 8.2 g/dl (12.0-16.0); LYMPHOCYTES # (AUTO) 2.6 X10'3 (1.1-4.8); LYMPHOCYTES % (AUTO) 12.2 % (21-51); MEAN CORPUSCULAR HEMOGLOBIN 32.5 PG (27.0-31.0); MEAN CORPUSCULAR HGB CONC 33.5 g/dL (33.0-36.5); MEAN CORPUSCULAR VOLUME 96.9 FL (78-98); MEAN PLATELET VOLUME 7.9 FL (7.4-10.4); MONOCYTES # (AUTO) 1.2 X10'3 (0-0.9); MONOCYTES % (AUTO) 5.9 % (2-12); NEUTROPHILS # (AUTO) 16.6 X10'3 (1.8-7.7); NEUTROPHILS % (AUTO) 79.1 % (42-75); PLATELET COUNT 389 X10'3 (140-440); RED BLOOD COUNT 2.54 X10'6 (4.20-5.60); RED CELL DISTRIBUTION WIDTH 14.6 % (11.5-14.5)
[2023-01-05 03:11] LABS: POTASSIUM 2.7 MMOL/L (3.5-5.1)
[2023-01-05] MEDS ORDERED: potassium Cl 40MEQ/270ML bag 270 ML IV ONE (03:25)
[2023-01-05] MEDS: potassium Cl 40MEQ/270ML bag 270 ML IV PRN ×2 (03:31→05:23)
[2023-01-05 05:00] LABS: ANISOCYTOSIS FEW; HYPERSEGMENTED NEUTROPHILS FEW; PLATELET ESTIMATE NORMAL; TOTAL CELLS COUNTED 100
[2023-01-05] MEDS: dextrose 5%-water 1,000 ML IV SCH (05:23)
[2023-01-05] MEDS: [UNRECOGNIZED DRUG - OTHER] IV SCH ×2 (05:26→20:23)
[2023-01-05] MEDS: CHROMIC CHLORIDE IV SCH ×2 (05:26→20:23)
[2023-01-05] MEDS: SELENIUM IV SCH ×2 (05:26→20:23)
[2023-01-05] MEDS: MANGANESE IV SCH ×2 (05:26→20:23)
[2023-01-05] MEDS: COPPER IV SCH ×2 (05:26→20:23)
[2023-01-05] MEDS: ZINC IV SCH ×2 (05:26→20:23)
--- NOTE | 2023-01-05 06:15 | NUR ---
Problems reprioritized. Patient report given, questions answered & plan of care reviewed with RICHARD Tapia.
[2023-01-05] MEDS: MULTIVIT-MIN/FERROUS GLUCONATE 9 MG/15 ML LIQUID OGT SCH (08:00)
[2023-01-05] MEDS: K and/or MAG REPLACEMENT MC SCH ×2 (08:00→20:00)
[2023-01-05] MEDS: docusate sodium 100mg/10ml UD cup OGT SCH (08:00)
[2023-01-05] MEDS: pantoprazole 40MG/NS 100ML BAG 100 ML IV SCH (08:16)
[2023-01-05] MEDS: thiamine 100mg/ml 2ml inj. IV SCH (08:21)
[2023-01-05] MEDS: folic acid 1mg/0.2ml inj IV SCH (08:22)
[2023-01-05] MEDS: fat emulsion 20% inj. 100 ML IV SCH (08:25)
[2023-01-05] MEDS: insulin regular, human U-100 3ml vial - multi-dose SQ SCH ×2 (08:53→20:41)
[2023-01-05] MEDS ORDERED: docusate sodium 100mg/10ml UD cup OGT PRN (09:00)
[2023-01-05] MEDS: cefepime 2g/NS 100ml ADVANTAGE 100 ML IV SCH ×3 (09:03→23:23)
[2023-01-05] MEDS: levoTHYROXINE 88mcg tablet PO SCH (09:12)
[2023-01-05] MEDS: metroNIDAZOLE 500mg tablet PO SCH ×3 (09:12→17:07)
[2023-01-05] MEDS: FLUoxetine 20mg capsule PO SCH (09:13)
[2023-01-05] MEDS: heparin, porcine 5000 units/ml vial SQ SCH ×3 (09:14→23:23)
[2023-01-05] MEDS: liothyronine sod 5mcg tablet PO SCH ×2 (09:17→20:21)
[2023-01-05] MEDS: vancomycin/NS 1 GM ADD-VANTAGE 250 ML IV SCH (11:49)
--- NOTE | 2023-01-05 12:23 | NUR ---
F/u 01/05: Pt extubated yesterday tolerating TPN at goal w/ D5 to stop advanced to nectar thick/full liquids/vegetarian diet s/p RN BSS per RN today. Pending PUBLIC HEALTH TEACHER BSS tomorrow AM per EMR. Updated PN recs below; will monitor for tolerance. Recommendations: 1) Continuous TPN per MD using 2:1 Clinimix non-E 5/15 at 85mL/hr goal rate and additional 100 mL 20% ILE to run at 8.33 mL/hr for 12 hrs a day. To provide 2040mL volume/day, 102g AA, 306g DEX (3.54 mg/kg/min), and 1656 kcal 2) Continue full liquids/nectar thick/vegetarian diet; advance per PUBLIC HEALTH TEACHER/MD recs to regular/vegetarian as medically indicated 3) IF poor vs unsafe PO; transition back to continuous EN using Vital AF at 65mL/hr to provide 1560 ml volume/day, 1872 kcal, 1265 ml water, and 117g protein 4) PALB and TG q Friday/; Daily scaled weights 5) Routine Thiamine, Folic acid, and MVM with Iron for EtOH per MD 6) Bowel care per rx; consider routine anti-diarrheal if elevated rectal tube output persists Addendum: 01/05/23 at [address] Amended: Links added.
[2023-01-05] MEDS ORDERED: COPPER IV SCH ×2 (12:42→20:00)
[2023-01-05] MEDS ORDERED: CHROMIC CHLORIDE IV SCH ×2 (12:42→20:00)
[2023-01-05] MEDS ORDERED: ZINC IV SCH ×2 (12:42→20:00)
[2023-01-05] MEDS ORDERED: MANGANESE IV SCH ×2 (12:42→20:00)
[2023-01-05] MEDS ORDERED: SELENIUM IV SCH ×2 (12:42→20:00)
[2023-01-05] MEDS ORDERED: [UNRECOGNIZED DRUG - OTHER] IV SCH ×2 (12:42→20:00)
[2023-01-05] MEDS: lactobacillus rhamnosus 10,000 MMU CELLS/CAPSULE PO SCH ×2 (14:01→17:08)
[2023-01-05] MEDS: potassium Cl 20 mEq SR tablet PO SCH ×2 (14:01→20:20)
--- NOTE | 2023-01-05 20:16 | NUR ---
Spoke to Dr. Escobar on the phone regarding blood glucose. okayed to hold edgar greenwood.
[2023-01-05] MEDS: insulin glargine (Lantus) pen - multi-dose SQ SCH (20:19)
[2023-01-05] MEDS: psyllium seed 5.8 gm packet (sugar-free) PO SCH (20:20)
[2023-01-05] MEDS: NYSTATIN CREAM - 30GM TUBE TP SCH (20:20)
[2023-01-05] MEDS: VANCOMYCIN 1,500MG in normal saline IV soln 300 ML IV SCH (22:40)
[2023-01-06] VITALS (19 sets, daily range): BP systolic 101–129; BP diastolic 51–76
[2023-01-06] MEDS: potassium Cl 20 mEq SR tablet PO SCH ×4 (02:38→20:12)
[2023-01-06] MEDS: insulin regular, human U-100 3ml vial - multi-dose SQ SCH (02:44)
[2023-01-06 07:30] LABS: ALANINE AMINOTRANSFERASE 95 U/L (12-78); ALBUMIN 2.9 G/DL (3.4-5.0); ALKALINE PHOSPHATASE 88 IU/L (46-116); ANION GAP 9 (8-16); ASPARTATE AMINO TRANSFERASE 56 U/L (10-37); BILIRUBIN,TOTAL 0.3 MG/DL (0.1-1.0); BLOOD UREA NITROGEN 14 MG/DL (7-18); CALCIUM 8.2 MG/DL (8.5-10.1); CHLORIDE 111 MMOL/L (99-107); GLUCOSE 123 MG/DL (70-104); MAGNESIUM 1.7 MG/DL (1.5-2.4); PHOSPHORUS 1.9 MG/DL (2.3-4.5); POTASSIUM 3.6 MMOL/L (3.5-5.1); SODIUM 139 MMOL/L (135-145); TOTAL CARBON DIOXIDE 19.1 MMOL/L (24-32); TOTAL PROTEIN 5.9 G/DL (6.4-8.2); eGFR > 90 ML/MIN
[2023-01-06 07:32] LABS: BASOPHILS # (AUTO) 0.1 X10'3 (0-0.2); BASOPHILS % (AUTO) 0.3 % (0-1); EOSINOPHILS # (AUTO) 0.5 X10'3 (0-0.9); EOSINOPHILS % (AUTO) 2.9 % (0-6); HEMATOCRIT 24.9 % (35.0-45.0); HEMOGLOBIN 8.4 g/dl (12.0-16.0); LYMPHOCYTES # (AUTO) 2.1 X10'3 (1.1-4.8); LYMPHOCYTES % (AUTO) 13.1 % (21-51); MEAN CORPUSCULAR HEMOGLOBIN 32.5 PG (27.0-31.0); MEAN CORPUSCULAR HGB CONC 33.5 g/dL (33.0-36.5); MEAN CORPUSCULAR VOLUME 97.1 FL (78-98); MONOCYTES # (AUTO) 1.1 X10'3 (0-0.9); MONOCYTES % (AUTO) 6.8 % (2-12); NEUTROPHILS # (AUTO) 12.4 X10'3 (1.8-7.7); NEUTROPHILS % (AUTO) 76.9 % (42-75); PLATELET COUNT 361 X10'3 (140-440); RED BLOOD COUNT 2.57 X10'6 (4.20-5.60); RED CELL DISTRIBUTION WIDTH 14.8 % (11.5-14.5); WHITE BLOOD COUNT 16.1 X10'3 (4.5-11.0)
[2023-01-06] MEDS: liothyronine sod 5mcg tablet PO SCH ×2 (08:00→20:13)
[2023-01-06] MEDS: K and/or MAG REPLACEMENT MC SCH ×2 (08:00→20:00)
[2023-01-06] MEDS: cefepime 2g/NS 100ml ADVANTAGE 100 ML IV SCH ×2 (08:32→16:25)
[2023-01-06] MEDS: pantoprazole 40MG/NS 100ML BAG 100 ML IV SCH (08:32)
[2023-01-06] MEDS: fat emulsion 20% inj. 100 ML IV SCH (08:33)
[2023-01-06] MEDS: psyllium seed 5.8 gm packet (sugar-free) PO SCH ×2 (08:33→20:12)
[2023-01-06] MEDS: lactobacillus rhamnosus 10,000 MMU CELLS/CAPSULE PO SCH ×3 (08:33→16:23)
[2023-01-06] MEDS: multivitamins, therapeutics tablet PO SCH (08:33)
[2023-01-06] MEDS: levoTHYROXINE 88mcg tablet PO SCH (08:33)
[2023-01-06] MEDS: metroNIDAZOLE 500mg tablet PO SCH ×2 (08:33→16:24)
[2023-01-06] MEDS: NYSTATIN CREAM - 30GM TUBE TP SCH ×2 (08:34→20:11)
[2023-01-06] MEDS: folic acid 1mg/0.2ml inj IV SCH (08:34)
[2023-01-06] MEDS: FLUoxetine 20mg capsule PO SCH (08:34)
[2023-01-06] MEDS: thiamine 100mg/ml 2ml inj. IV SCH (08:37)
[2023-01-06] MEDS: heparin, porcine 5000 units/ml vial SQ SCH ×2 (09:08→16:24)
[2023-01-06] MEDS ORDERED: HYDROcodone/acetaminophen 5mg/325mg tablet PO PRN (10:10)
[2023-01-06] MEDS ORDERED: DEXTROSE 15 GM of carb/4 tabs (each vial/BOTTLE has 4 tablets) PO PRN ×2 (11:05)
[2023-01-06] MEDS ORDERED: docusate sod 100mg capsule PO PRN (11:06)
[2023-01-06] MEDS ORDERED: mag hydrox/Alum hydrox/simeth 30ml oral suspension PO PRN (11:06)
[2023-01-06] MEDS ORDERED: Neutra Phos packet PO PRN (11:07)
[2023-01-06] MEDS ORDERED: magnesium hydroxide 30ml (MOM) UD suspension PO PRN (11:07)
[2023-01-06] MEDS: VANCOMYCIN 1,500MG in normal saline IV soln 300 ML IV SCH ×2 (11:58→22:09)
[2023-01-06] MEDS: Neutra Phos packet PO SCH ×2 (12:42→21:10)
--- NOTE | 2023-01-06 14:23 | NUR ---
1330- blood sugars have been under 150 with no lantus night before, not needed coverage. Starting over, waiting for patient to meet protocol.
--- NOTE | 2023-01-06 14:24 | NUR ---
1430- watery diarrhea continues, addressed with Dr Villa, Allen has written last note for patient today, page placed to Rus[facility] for loperamide.
[2023-01-06] MEDS: loperamide 2mg capsule PO PRN ×2 (17:04→22:09)
[2023-01-06] MEDS: CHROMIC CHLORIDE IV SCH (20:11)
[2023-01-06] MEDS: COPPER IV SCH (20:11)
[2023-01-06] MEDS: [UNRECOGNIZED DRUG - OTHER] IV SCH (20:11)
[2023-01-06] MEDS: MANGANESE IV SCH (20:11)
[2023-01-06] MEDS: ZINC IV SCH (20:11)
[2023-01-06] MEDS: SELENIUM IV SCH (20:11)
[2023-01-06] MEDS: insulin glargine (Lantus) pen - multi-dose SQ SCH (21:00)
[2023-01-06] MEDS: acetaminophen 325mg/10.15ml oral unit dose solution OGT PRN (22:10)
[2023-01-07] VITALS (15 sets, daily range): BP systolic 93–136; BP diastolic 40–98
[2023-01-07] MEDS: cefepime 2g/NS 100ml ADVANTAGE 100 ML IV SCH ×3 (00:44→16:22)
[2023-01-07] MEDS: metroNIDAZOLE 500mg tablet PO SCH ×3 (00:44→16:23)
[2023-01-07] MEDS: heparin, porcine 5000 units/ml vial SQ SCH ×3 (00:45→16:00)
[2023-01-07] MEDS: potassium Cl 20 mEq SR tablet PO SCH ×4 (02:29→20:00)
[2023-01-07 02:49] LABS: BASOPHILS # (AUTO) 0.1 X10'3 (0-0.2); BASOPHILS % (AUTO) 0.6 % (0-1); EOSINOPHILS # (AUTO) 0.5 X10'3 (0-0.9); EOSINOPHILS % (AUTO) 3.1 % (0-6); HEMATOCRIT 23.7 % (35.0-45.0); LYMPHOCYTES # (AUTO) 2.7 X10'3 (1.1-4.8); LYMPHOCYTES % (AUTO) 17.2 % (21-51); MEAN CORPUSCULAR HEMOGLOBIN 32.7 PG (27.0-31.0); MEAN CORPUSCULAR HGB CONC 33.7 g/dL (33.0-36.5); MEAN PLATELET VOLUME 7.3 FL (7.4-10.4); MONOCYTES # (AUTO) 1.2 X10'3 (0-0.9); MONOCYTES % (AUTO) 7.5 % (2-12); NEUTROPHILS # (AUTO) 11.1 X10'3 (1.8-7.7); NEUTROPHILS % (AUTO) 71.6 % (42-75); PLATELET COUNT 337 X10'3 (140-440); RED BLOOD COUNT 2.44 X10'6 (4.20-5.60); RED CELL DISTRIBUTION WIDTH 14.5 % (11.5-14.5); WHITE BLOOD COUNT 15.5 X10'3 (4.5-11.0)
[2023-01-07 03:18] LABS: ALANINE AMINOTRANSFERASE 91 U/L (12-78); ALBUMIN 2.9 G/DL (3.4-5.0); ALBUMIN/GLOBULIN RATIO 0.9 (1.1-1.5); ALKALINE PHOSPHATASE 80 IU/L (46-116); ANION GAP 9 (8-16); ASPARTATE AMINO TRANSFERASE 40 U/L (10-37); BILIRUBIN,TOTAL 0.3 MG/DL (0.1-1.0); BLOOD UREA NITROGEN 12 MG/DL (7-18); BUN/CREATININE RATIO 26.7 (10.0-20.0); CALCIUM 8.4 MG/DL (8.5-10.1); CHLORIDE 111 MMOL/L (99-107); CREATININE 0.45 MG/DL (0.40-0.90); GLUCOSE 158 MG/DL (70-104); LIPASE 1274 U/L (73-393); MAGNESIUM 1.7 MG/DL (1.5-2.4); PHOSPHORUS 1.8 MG/DL (2.3-4.5); POTASSIUM 4.3 MMOL/L (3.5-5.1); SODIUM 138 MMOL/L (135-145); TOTAL CARBON DIOXIDE 18.2 MMOL/L (24-32); eGFR > 90 ML/MIN
[2023-01-07 03:47] LABS: PLATELET ESTIMATE NORMAL; TOTAL CELLS COUNTED 100
[2023-01-07] MEDS: loperamide 2mg capsule PO PRN ×2 (04:22→10:24)
[2023-01-07] MEDS: acetaminophen 325mg/10.15ml oral unit dose solution OGT PRN ×2 (04:22→22:11)
--- NOTE | 2023-01-07 06:15 | NUR ---
Patient in room CICU 2011B. I have received report from Mac RN and had the opportunity to ask questions and assume patient care.
[2023-01-07] MEDS ORDERED: MVI, adult No.4 with vit. K 10 ML in dextrose 5% water 500ml 500 ML IV SCH ×2 (08:00)
[2023-01-07] MEDS: K and/or MAG REPLACEMENT MC SCH ×2 (08:00→19:36)
[2023-01-07] MEDS: pantoprazole 40MG/NS 100ML BAG 100 ML IV SCH (08:37)
[2023-01-07] MEDS: thiamine 100mg/ml 2ml inj. IV SCH (08:38)
[2023-01-07] MEDS: multivitamins, therapeutics tablet PO SCH (08:38)
[2023-01-07] MEDS: lactobacillus rhamnosus 10,000 MMU CELLS/CAPSULE PO SCH ×3 (08:39→16:25)
[2023-01-07] MEDS: FLUoxetine 20mg capsule PO SCH (08:39)
[2023-01-07] MEDS: NYSTATIN CREAM - 30GM TUBE TP SCH ×2 (08:39→20:07)
[2023-01-07] MEDS: psyllium seed 5.8 gm packet (sugar-free) PO SCH ×2 (08:40→20:01)
[2023-01-07] MEDS: levoTHYROXINE 88mcg tablet PO SCH (08:40)
[2023-01-07] MEDS: liothyronine sod 5mcg tablet PO SCH ×2 (08:41→20:01)
[2023-01-07] MEDS: Neutra Phos packet PO SCH ×4 (08:41→20:02)
[2023-01-07] MEDS: fat emulsion 20% inj. 100 ML IV SCH (09:12)
[2023-01-07] MEDS: folic acid 1mg/0.2ml inj IV SCH (09:13)
[2023-01-07] MEDS ORDERED: VANCOMYCIN LEVEL IV ONE (10:30)
--- NOTE | 2023-01-07 11:22 | NUR ---
Reassessment: Pt eating poorly, documented with 0-25% PO intake of meals on nectar thick full liquid diet. Pt s/p f/u BSS this morning with ST recs thin liquids, pending documentation of PO intake since texture liberalization. Pt seen at bedside, reports she prefers to be on a vegetarian diet and states she does occasionally consume dairy and eggs. Noted TPN not running at bedside. RN states she received a verbal order from hospitalist to discontinue TPN. RD informed RN that TPN should be weaned and not just discontinued and encouraged RN to check patient's blood sugar soon to monitor for hypoglycemia. Per EMR rectal tube discontinued 01/06 and LBM 01/07 per I&O, documented with diarrhea. Per DO note diarrhea is likely antibiotic induced. Pt started on routine Metamucil and Culturelle and is receiving PRN Imodium. Will continue to follow closely and monitor need for nutrition intervention pending trends in PO intake. Recommendations: 1) Advance to vegetarian diet as appropriate per ST recs and pt preference 2) Monitor need for ONS 3) Routine Thiamine, Folic acid, and MVI for EtOH 4) Bowel care per rx 5) Weekly scaled weights Addendum: 01/07/23 at [address] Amended: Links added.
[2023-01-07] MEDS: VANCOMYCIN 1,500MG in normal saline IV soln 300 ML IV SCH (12:13)
--- NOTE | 2023-01-07 12:58 | NUR ---
PRESSURE ULCER EDUCATION: DEFINITION: A pressure ulcer is an area of skin that breaks down when you stay in one position too long. The constant pressure against the skin reduces the blood flow to that area and the affected tissue dies. CAUSES: "Being bedridden or in a wheelchair "Fragile skin "Having a chronic condition, such as diabetes or vascular disease "Inability to move certain parts of your body without assistance "Older age "Incontinence of urine or stool SYMPTOMS: "A reddened area that DOES NOT turn white when pressed on - this can be the beginning of a pressure ulcer "A blister, deep sore or a crater - these can be advanced pressure ulcers FIRST AID: "Relieve the pressure on this area "Keep the area clean and dry "Call your primary doctor if you see any of the above symptoms "DO NOT massage the area "DO NOT use a donut shaped or ring shaped pillow- these actually interfere with the blood flow and cause complications PREVENTION: "Check for pressure ulcers everyday "Change position at least every two hours to relieve pressure "Use items that help relieve pressure- pillows, sheepskin, foam padding, and powders. "Keep skin clean and dry "Eat healthy well balanced meals "Exercise daily IF YOU SEE ANY OF THESE SYMPTOMS WHILE IN THE HOSPITAL - TELL YOUR NURSE IMMEDIATELY. IF YOU SEE ANY OF THESE SYMPTOMS WHILE AT HOME OR HAVE ANY QUESTIONS OR CONCERNS ABOUT PRESSURE ULCERS - CALL YOUR PRIMARY DOCTOR IMMEDIATELY. Addendum: 01/07/23 at 1258 by Madiha Alcantar RN Amended: Links added.
--- NOTE | 2023-01-07 13:24 | NUR ---
patient had gotten out of bed and was sitting on the sharps container going to the bathroom when I came in room. got patient back in bed. patient was more coherent today I was told. patient walked with PT and walker in the hallway. sat in chair for over an hour. passed her speech to advance to thin liquids. per Md stop tpn multivitamin IV. pulled singleton at 945am. patient has voided several times since. psych came to see patient today. wound care came to assess pt. discovered a rash on back. gave me cream to apply. patients appt is not great. patient is still on clear liquid diet. patient is able to follow commands and use call mittal for assistance. blood sugars have been 116 and 96. no protocol. changed lien and another nurse washed hair and braided. tried to stop or discontinue TPN i am not able to because it saying someone else is in. pharm is aware.
--- NOTE | 2023-01-07 18:24 | NUR ---
patient vitals signs at 1500pm. 138/86 temp 37.4 hr 98 95 RA. resp 20. blood sugar was 82 for dinner. walked patient in the hallway with walker. son came to bedside to visit. patient and myself spoke with marisela gastelum philosophy faculty member. patient had at 5 bm today and 7 voids after singleton removed
[2023-01-07] MEDS: insulin glargine (Lantus) pen - multi-dose SQ SCH (21:00)
[2023-01-08] MEDS: potassium Cl 20 mEq SR tablet PO SCH ×4 (02:00→21:10)
[2023-01-08 07:00] VITALS: BP 114/61
[2023-01-08 07:15] LABS: ALANINE AMINOTRANSFERASE 93 U/L (12-78); ALBUMIN 3.5 G/DL (3.4-5.0); ALKALINE PHOSPHATASE 95 IU/L (46-116); ANION GAP 10 (8-16); ASPARTATE AMINO TRANSFERASE 49 U/L (10-37); BILIRUBIN,TOTAL 0.4 MG/DL (0.1-1.0); BLOOD UREA NITROGEN 7 MG/DL (7-18); BUN/CREATININE RATIO 13.7 (10.0-20.0); CALCIUM 9.5 MG/DL (8.5-10.1); CHLORIDE 107 MMOL/L (99-107); CREATININE 0.51 MG/DL (0.40-0.90); GLUCOSE 96 MG/DL (70-104); MAGNESIUM 1.8 MG/DL (1.5-2.4); PHOSPHORUS 3.9 MG/DL (2.3-4.5); POTASSIUM 3.9 MMOL/L (3.5-5.1); SODIUM 137 MMOL/L (135-145); TOTAL CARBON DIOXIDE 20.1 MMOL/L (24-32); eGFR > 90 ML/MIN
[2023-01-08 07:21] LABS: BASOPHILS # (AUTO) 0.1 X10'3 (0-0.2); BASOPHILS % (AUTO) 0.9 % (0-1); EOSINOPHILS # (AUTO) 0.5 X10'3 (0-0.9); EOSINOPHILS % (AUTO) 3.3 % (0-6); HEMATOCRIT 27.3 % (35.0-45.0); HEMOGLOBIN 8.9 g/dl (12.0-16.0); LYMPHOCYTES # (AUTO) 2.1 X10'3 (1.1-4.8); LYMPHOCYTES % (AUTO) 14.5 % (21-51); MEAN CORPUSCULAR HEMOGLOBIN 32.1 PG (27.0-31.0); MEAN CORPUSCULAR HGB CONC 32.7 g/dL (33.0-36.5); MEAN CORPUSCULAR VOLUME 98.1 FL (78-98); MEAN PLATELET VOLUME 7.9 FL (7.4-10.4); MONOCYTES # (AUTO) 1.3 X10'3 (0-0.9); MONOCYTES % (AUTO) 8.6 % (2-12); NEUTROPHILS # (AUTO) 10.6 X10'3 (1.8-7.7); NEUTROPHILS % (AUTO) 72.7 % (42-75); PLATELET COUNT 329 X10'3 (140-440); RED BLOOD COUNT 2.78 X10'6 (4.20-5.60); RED CELL DISTRIBUTION WIDTH 15.2 % (11.5-14.5); WHITE BLOOD COUNT 14.6 X10'3 (4.5-11.0)
--- NOTE | 2023-01-08 07:54 | NUR ---
Pt needs to have sitter order and mental health hold renewed as of this morning. Dr Giordano was told on floor of the situation and he stated he was aware and was going to take care of the orders.
[2023-01-08] MEDS: K and/or MAG REPLACEMENT MC SCH ×2 (08:00→20:00)
[2023-01-08] MEDS: heparin, porcine 5000 units/ml vial SQ SCH ×4 (08:00→23:10)
[2023-01-08] MEDS: NYSTATIN CREAM - 30GM TUBE TP SCH ×2 (08:00→21:13)
[2023-01-08] MEDS: pantoprazole 40MG/NS 100ML BAG 100 ML IV SCH (08:42)
[2023-01-08] MEDS: cefepime 2g/NS 100ml ADVANTAGE 100 ML IV SCH ×2 (08:42)
[2023-01-08] MEDS: loperamide 2mg capsule PO PRN ×2 (08:43→21:22)
[2023-01-08] MEDS: multivitamins, therapeutics tablet PO SCH (08:43)
[2023-01-08] MEDS: lactobacillus rhamnosus 10,000 MMU CELLS/CAPSULE PO SCH ×3 (08:43→16:49)
[2023-01-08] MEDS: folic acid 1mg/0.2ml inj IV SCH (08:43)
[2023-01-08] MEDS: metroNIDAZOLE 500mg tablet PO SCH ×2 (08:43)
[2023-01-08] MEDS: levoTHYROXINE 88mcg tablet PO SCH (08:43)
[2023-01-08] MEDS: thiamine 100mg/ml 2ml inj. IV SCH (08:44)
[2023-01-08] MEDS: FLUoxetine 20mg capsule PO SCH (08:44)
[2023-01-08] MEDS ORDERED: psyllium seed 5.8 gm packet (sugar-free) PO PRN (09:19)
--- NOTE | 2023-01-08 09:22 | NUR ---
Pt had two orders for neutro-phos packets in their eMAR. I called pharmacy and they instructed me to DC the oldest order of 3 packets and keep the newer order of 1 packet. I have already DC'd the order.
[2023-01-08] MEDS: liothyronine sod 5mcg tablet PO SCH ×2 (10:13→21:11)
[2023-01-08] MEDS: Neutra Phos packet PO SCH ×3 (10:14→21:13)
[2023-01-08 11:00] VITALS: BP 102/56
[2023-01-08] MEDS: VANCOmycin 2,000MG in NS 500ml IV soln IV SCH ×3 (12:39)
[2023-01-08 15:00] VITALS: BP 130/74
--- NOTE | 2023-01-08 18:39 | NUR ---
Page sent to @ approx 1836 - Pt [id number], pt evaluated by [facility], they feel sitter can be removed, pt is no longer deemed danger to self or others, please review assessment and provide d/c order if appropriate. Pt to d/c home tomorrow with family support. Awaiting d/c sitter from , electrician helper powerhouse made aware of possible change.
--- NOTE | 2023-01-08 18:59 | NUR ---
LN obtained verbal order from MD to d/c 6259 and sitter status. Orders updated.
[2023-01-08 19:00] VITALS: BP 132/75
[2023-01-08] MEDS: acetaminophen 325mg/10.15ml oral unit dose solution OGT PRN (21:24)
--- NOTE | 2023-01-08 22:00 | NUR ---
Assumed care of pt from Zoila CHINCHILLA. Pt showered and resting comfortably. Requested not to be woken up for 0000 heparin.
[2023-01-08 23:00] VITALS: BP 123/62
--- NOTE | 2023-01-09 03:02 | NUR ---
Attempted to draw AM labs from PICC line, but there was no blood return from any lumen. Lab notified.
[2023-01-09 03:06] VITALS: BP 134/68
[2023-01-09] MEDS: potassium Cl 20 mEq SR tablet PO SCH ×2 (03:58→08:46)
[2023-01-09 06:17] LABS: BASOPHILS # (AUTO) 0.1 X10'3 (0-0.2); BASOPHILS % (AUTO) 0.8 % (0-1); EOSINOPHILS # (AUTO) 0.4 X10'3 (0-0.9); EOSINOPHILS % (AUTO) 3.4 % (0-6); HEMATOCRIT 25.2 % (35.0-45.0); HEMOGLOBIN 8.6 g/dl (12.0-16.0); LYMPHOCYTES # (AUTO) 1.6 X10'3 (1.1-4.8); LYMPHOCYTES % (AUTO) 13.6 % (21-51); MEAN CORPUSCULAR HEMOGLOBIN 32.9 PG (27.0-31.0); MEAN CORPUSCULAR VOLUME 96.8 FL (78-98); MEAN PLATELET VOLUME 7.4 FL (7.4-10.4); MONOCYTES # (AUTO) 1.2 X10'3 (0-0.9); MONOCYTES % (AUTO) 10.2 % (2-12); NEUTROPHILS # (AUTO) 8.5 X10'3 (1.8-7.7); PLATELET COUNT 327 X10'3 (140-440); RED CELL DISTRIBUTION WIDTH 15.9 % (11.5-14.5); WHITE BLOOD COUNT 11.8 X10'3 (4.5-11.0)
[2023-01-09 06:37] LABS: ALANINE AMINOTRANSFERASE 90 U/L (12-78); ALBUMIN 3.3 G/DL (3.4-5.0); ALBUMIN/GLOBULIN RATIO 1.1 (1.1-1.5); ALKALINE PHOSPHATASE 90 IU/L (46-116); ANION GAP 9 (8-16); ASPARTATE AMINO TRANSFERASE 47 U/L (10-37); BILIRUBIN,TOTAL 0.4 MG/DL (0.1-1.0); BLOOD UREA NITROGEN 5 MG/DL (7-18); BUN/CREATININE RATIO 11.1 (10.0-20.0); CALCIUM 9.1 MG/DL (8.5-10.1); CHLORIDE 106 MMOL/L (99-107); CREATININE 0.45 MG/DL (0.40-0.90); GLUCOSE 104 MG/DL (70-104); MAGNESIUM 1.8 MG/DL (1.5-2.4); PHOSPHORUS 4.4 MG/DL (2.3-4.5); POTASSIUM 4.1 MMOL/L (3.5-5.1); SODIUM 138 MMOL/L (135-145); TOTAL CARBON DIOXIDE 22.8 MMOL/L (24-32); TOTAL PROTEIN 6.4 G/DL (6.4-8.2); eGFR > 90 ML/MIN
[2023-01-09 07:00] VITALS: BP 123/61
--- NOTE | 2023-01-09 07:20 | NUR ---
Patient in room PCU 3012. I have received report from Karen RAMOS and had the opportunity to ask questions and assume patient care. Pt resting comfortably in bed with no signs of distress. BLL. Call light with in reach. Pt denies needs at this time.
[2023-01-09] MEDS: heparin, porcine 5000 units/ml vial SQ SCH (08:00)
[2023-01-09] MEDS: pantoprazole 40MG/NS 100ML BAG 100 ML IV SCH (08:42)
[2023-01-09] MEDS: folic acid 1mg/0.2ml inj IV SCH (08:42)
[2023-01-09] MEDS: lactobacillus rhamnosus 10,000 MMU CELLS/CAPSULE PO SCH (08:44)
[2023-01-09] MEDS: thiamine 100mg/ml 2ml inj. IV SCH (08:44)
[2023-01-09] MEDS: FLUoxetine 20mg capsule PO SCH (08:45)
[2023-01-09] MEDS: levoTHYROXINE 88mcg tablet PO SCH (08:45)
[2023-01-09] MEDS: multivitamins, therapeutics tablet PO SCH (08:45)
[2023-01-09] MEDS: Neutra Phos packet PO SCH (08:47)
[2023-01-09] MEDS: NYSTATIN CREAM - 30GM TUBE TP SCH (08:50)
[2023-01-09] MEDS: K and/or MAG REPLACEMENT MC SCH (08:52)
[2023-01-09] MEDS: liothyronine sod 5mcg tablet PO SCH (09:27)
[2023-01-09 11:00] VITALS: BP 134/63
[2023-01-09] MEDS ORDERED: VANCOMYCIN LEVEL IV ONE (11:30)
--- NOTE | 2023-01-09 12:00 | NUR ---
Dr Redd came to evaluate patient for [facility] unit. Dr Redd requested a 72 hour hold and placed pt on 5150. Sitter at bedside currently. Pt in no distress at this time. Per Dr Redd, awaiting female bed for transfer to [facility]. Will continue to monitor.
--- NOTE | 2023-01-09 15:35 | NUR ---
Pt was seen by Dr Redd from [facility] about putting pt under a 5150. At conclusion of discussion with pt he completed 5150 order. All previous documentation by providers mentioned attempted suicide by overdose. I had no previous discussion with pt about whether they agreed with the assessment of attempting suicide or not. I was not privy to what was discussed by the Dr's and the pt prior. The after the 5150 was placed family were up on the floor and pt stated she never told the Dr's she had attempted suicide and that it was an accident. She stated to me she disagreed with the assessment of suicidal ideation, and that the dr's did not listen to her. Previous to this the pt had never stated to me or anyone on the floor that she had not tried to commit suicide, whether she held those beliefs or not. The family, her sister primarily, strongly disagreed with the hold and that she should not be forced to be committed to [facility]. They asked for a copy of the 5150 and after checking with brigid Mg and calling supervisors we were told she would be provided with a copy of the 5150 once she was taken to [facility]. After telling them that the 5150 had been placed and there was nothing we could do on the floor and that Dr Redd would not be able to be reached they disagreed with how everything was happening but understood the situation. Pt was unhooked from their IV and gathered their belongings. Pt was brought to [facility] with staff.
[2023-01-09] MEDS ORDERED: ADV50250 INH (17:15)
== END 2023-01-09 15:17 | DRG 917 ==
LOC: ER 20:38 → ED HOLD 12-20 05:32 → CICU 2S 12-20 19:29 → PCU 3S 01-07 15:00
PROVIDERS: ADMIT Internal Medicine Critical Care Medicine; ATTEND Internal Medicine Critical Care Medicine
PROC: 02HV33Z Insertion of Infusion Device into Superior Vena Cava, Percutaneous Approach (ICD-10-PCS; 2022-12-19)
PROC: 5A1955Z Respiratory Ventilation, Greater than 96 Consecutive Hours (ICD-10-PCS; principal; 2022-12-20)
PROC: 0BH17EZ Insertion of Endotracheal Airway into Trachea, Via Natural or Artificial Opening (ICD-10-PCS; 2022-12-20)
PROC: 03HY32Z Insertion of Monitoring Device into Upper Artery, Percutaneous Approach (ICD-10-PCS; 2022-12-21)
PROC: 5A1955Z Respiratory Ventilation, Greater than 96 Consecutive Hours (ICD-10-PCS; 2022-12-27)
PROC: 0BH17EZ Insertion of Endotracheal Airway into Trachea, Via Natural or Artificial Opening (ICD-10-PCS; 2022-12-27)
PROC: 4A00X4Z Measurement of Central Nervous Electrical Activity, External Approach (ICD-10-PCS; 2022-12-31)
DX: T46.1X2A Poisoning by calcium-channel blockers, intentional self-harm, initial encounter (principal); J69.0 Pneumonitis due to inhalation of food and vomit; J80 Acute respiratory distress syndrome; R57.8 Other shock; K85.20 Alcohol induced acute pancreatitis without necrosis or infection; B00.2 Herpesviral gingivostomatitis and pharyngotonsillitis; K52.1 Toxic gastroenteritis and colitis; E87.29 Other acidosis; F10.231 Alcohol dependence with withdrawal delirium; F33.2 Major depressive disorder, recurrent severe without psychotic features; E87.1 Hypo-osmolality and hyponatremia; E87.3 Alkalosis; E87.0 Hyperosmolality and hypernatremia; G93.40 Encephalopathy, unspecified; R18.8 Other ascites; T36.8X5A Adverse effect of other systemic antibiotics, initial encounter; Y92.230 Patient room in hospital as the place of occurrence of the external cause; E83.39 Other disorders of phosphorus metabolism; E83.51 Hypocalcemia; E83.42 Hypomagnesemia; E87.6 Hypokalemia; R74.01 Elevation of levels of liver transaminase levels; R94.01 Abnormal electroencephalogram [EEG]; D75.839 Thrombocytosis, unspecified; E03.9 Hypothyroidism, unspecified; R73.9 Hyperglycemia, unspecified; D64.9 Anemia, unspecified; E87.8 Other disorders of electrolyte and fluid balance, not elsewhere classified; L29.8 Other pruritus; F22 Delusional disorders; R21 Rash and other nonspecific skin eruption; F43.10 Post-traumatic stress disorder, unspecified; I95.2 Hypotension due to drugs; Z81.8 Family history of other mental and behavioral disorders; Z88.0 Allergy status to penicillin; Z90.710 Acquired absence of both cervix and uterus; Z91.410 Personal history of adult physical and sexual abuse; Z79.899 Other long term (current) drug therapy; Z88.8 Allergy status to other drugs, medicaments and biological substances; Z90.49 Acquired absence of other specified parts of digestive tract; Z56.0 Unemployment, unspecified
CPT/HCPCS: 36415; 36569; 36600; 70450; 70544; 70551; 71045; 76700; 80048; 80053; 80074; 80201; 80202; 80305; 80320; 80329; 81001; 81025; 82803; 82948; 83605; 83690; 83735; 83880; 84100; 84132; 84134; 84145; 84295; 84443; 84478; 84484; 85007; 85018; 85025; 87040; 87070; 87081; 87088; 87324; 87449; 92508; 92616; 93005; 93970; 94002; 94003; 94640; 94760; 94799; 95816; 97110; 97116; 97161; 97530; 99291; 99292; A4333; A4615; A5200; A6212; A6213; A6258; A6402; A6446; A6449; A7015; A9900; C1751; C9113; G0378; J0610; J0692; J0696; J1120; J1170; J1610; J1630; J1644; J1720; J1815; J1940; J2060; J2405; J2543; J2704; J2920; J3010; J3370; J3411; J3475; J3480; J3490; J7030; J7040; J7050; J7060; J7070; P9045; P9047

== ENCOUNTER 2023-01-09 14:17 | Inpatient (IN) | payer BC ==
[~2023-01-09] VITALS: Ht 157.5 cm; Wt 53.3 kg
[~2023-01-09 14:17] MED LIST changes: -CYCL-1 PO; -DEXL60CA3 PO; -DICY10CA88 PO; +ESTR1TAB28 PO; +FLUO-167 PO; +GABA300C PO; +LEVO88TA7 PO; +LIOT25TA12 PO; -NITR100C6 PO; -ONDA4TAB6 PO; -PHEN-716 PO; +PROG200C11 PO; +TOPI25TA49 PO; -ZOF4T PO
[2023-01-09] MEDS ORDERED: loperamide 2mg capsule PO PRN (14:55)
[2023-01-09] MEDS ORDERED: acetaminophen 325mg tablet PO PRN (14:55)
[2023-01-09] MEDS ORDERED: mag hydrox/Alum hydrox/simeth 30ml oral suspension PO PRN (14:55)
[2023-01-09] MEDS ORDERED: magnesium hydroxide 30ml (MOM) UD suspension PO PRN (14:55)
[2023-01-09 15:51] VITALS: BP 149/91
--- NOTE | 2023-01-09 16:00 | NUR ---
Admit note: Pt admitted today on 01/09/23 at 1535 from Telemetry on 5150 for DTS. Pt had recent serious suicide attempt and is at risk to herself. It appears impulsivity is an issue. Pt had serious suicide attempt with complications resulting in ICU admission from overdose of her husbands Alprazolam,Amlodipine, Edarbyclor. Pt has history of depression, Crohns dx, Asthma.
[2023-01-09] MEDS ORDERED: ADV50250 INH (17:15)
[2023-01-09] MEDS: budesonide 0.5mg/2ml UD nebule IH SCH (20:36)
[2023-01-09] MEDS: FLUoxetine 20mg capsule PO SCH (20:43)
[2023-01-09] MEDS: gabapentin 300mg capsule PO SCH (20:43)
[2023-01-09] MEDS: LIOthyronine 25mcg tablet PO SCH (20:45)
[2023-01-09] MEDS: progesterone, micronized 100mg capsule PO SCH (20:46)
[2023-01-09] MEDS ORDERED: topiramate 25mg tablet PO SCH (21:00)
--- NOTE | 2023-01-10 02:03 | NUR ---
RN PROGRESS NOTE: LEGAL HOLD: 5150 for DTS REASON FOR ADMIT: Client was admitted 12/20/22 for an overdose of prescription meds. RESPONSE: Client was asleep at COS. Client was laying in bed, her hair was disheveled. Clients mood was anxious. Client took all PM meds. She reported fatigue. She denies suicidal ideation and states "I want to go home. My sister is at my house and I feel safe." Client denies any history of SI, SA, inpatient psych admits, or mental health issues. Client stated "I mixed up taking my meds. I may have taken some of my husbands I don't know." Reports ETOH use of "every other day". Client has an essential tremor that developed several years ago.
[2023-01-10] MEDS: albuterol 2.5 MG/3 ML nebule NEB SCH ×4 (02:11→21:26)
[2023-01-10] MEDS: levoTHYROXINE 88mcg tablet PO SCH (07:43)
[2023-01-10] MEDS: LIOthyronine 25mcg tablet PO SCH (08:00)
[2023-01-10 08:13] VITALS: BP 109/65
[2023-01-10 08:16] LABS: HEMOGLOBIN A1C 5.6 % (4.5-6.2)
[2023-01-10 08:19] LABS: CHOL/HDL RATIO 3.6 (0.00-4.99); CHOLESTEROL 164 MG/DL (0-200); HDL CHOLESTEROL 46 MG/DL (35-60); LDL CHOLESTEROL 101 MG/DL (50-100); TRIGLYCERIDES 74 MG/DL (20-135)
[2023-01-10] MEDS: budesonide 0.5mg/2ml UD nebule IH SCH ×2 (09:32→21:26)
[2023-01-10] MEDS ORDERED: liothyronine sod 5mcg tablet PO SCH (13:56)
--- NOTE | 2023-01-10 15:38 | NUR ---
Called Clarissa's son, Dominick (ph# [phone]), who reported he will be staying at her house when she discharges from the hospital. He reported he does work Fri-Fri 8-, so he will not be there during the day. He reported Clarissa's friend, Mary Jo is planning on staying at the house as well, however, she lives in [place] and may be going back and forth to [place]. Called Clarissa's , Kemi (ph# [phone]). Kemi reported he is getting discharged from [facility] on Friday at 10 am. He reported he does not have any concerns about Clarissa returning home. He reported all guns are locked in two safes and he will change the codes on the safes. Kemi reported he did not think this was a suicide attempt and he attributed alcohol use to the root cause of the overdose. RONALD Haddad
--- NOTE | 2023-01-10 15:52 | NUR ---
RN PROGRESS NOTE: LEGAL HOLD: 5150 for DTS REASON FOR ADMIT: Client was admitted 12/20/22 for an overdose of prescription meds. RESPONSE: Patient was given to nurse at 1245. Patient was very quiet when nurse tried to talk to patient. Patient would mumble and low shallow speech. Patient finished lunch and retuned to bed. Patient came out to get phone to call family and returned again to bedroom. Plan: Become stable on medication
[2023-01-10 19:00] VITALS: BP 119/69
[2023-01-10] MEDS: liothyronine sod 5mcg tablet PO SCH (20:11)
[2023-01-10] MEDS: gabapentin 300mg capsule PO SCH (20:11)
[2023-01-10] MEDS: topiramate 25mg tablet PO SCH (20:12)
[2023-01-10] MEDS: progesterone, micronized 100mg capsule PO SCH (20:12)
[2023-01-10] MEDS: FLUoxetine 20mg capsule PO SCH (20:12)
[2023-01-10] MEDS: acetaminophen 325mg tablet PO PRN (20:42)
[2023-01-11] MEDS: albuterol 2.5 MG/3 ML nebule NEB SCH ×4 (02:35→20:57)
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
[2023-01-11 07:55] VITALS: BP 105/62
[2023-01-11] MEDS: levoTHYROXINE 88mcg tablet PO SCH (08:51)
[2023-01-11] MEDS: liothyronine sod 5mcg tablet PO SCH ×2 (08:51→20:26)
[2023-01-11] MEDS: budesonide 0.5mg/2ml UD nebule IH SCH ×2 (10:02→20:57)
--- NOTE | 2023-01-11 10:25 | NUR ---
SISTER OF PATIENT: NIKKY [phone]
[2023-01-11] MEDS ORDERED: naltrexone 50mg tablet PO ONE (15:25)
[2023-01-11] MEDS: acetaminophen 325mg tablet PO PRN (16:37)
--- NOTE | 2023-01-11 16:50 | NUR ---
RN PROGRESS NOTE PROBLEM: Pt was transferred from ICU to [facility]. Pt was admitted to [facility] due to intentional overdose of prescription medication. Pt spent twenty days in ICU where she was intubated. Pt has a history of MDD, ETOH dependence, PTSD. INTERVENTION: One to one assessment at bedside, administered medication as ordered with no adverse side effects, therapeutic conversation, ensured contract for safety, Q15 min safety rounds. RESPONSE: Received patient sleeping at shift change. Pt woke and was visible on unit throughout the shift. Pt was compliant with her medication and care. Pt presents with a restricted affect. When asked about her suicide attempt pt stated it was an ingestion error, not an overdose. A lot of alcohol clouding my judgement. Pt denies wanting to be . She also denies A/VH, HI. Pt reports her home is safe and will have a friend coming down from [place] to stay with her. Plan: Pt requires an interruption of current crisis and will be discharged home when stable.
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
[2023-01-11 20:00] VITALS: BP 93/46
[2023-01-11] MEDS: gabapentin 300mg capsule PO SCH (20:28)
[2023-01-11] MEDS: progesterone, micronized 100mg capsule PO SCH (20:28)
[2023-01-11] MEDS: FLUoxetine 20mg capsule PO SCH (20:28)
[2023-01-11] MEDS: topiramate 25mg tablet PO SCH (20:29)
[2023-01-11 20:30] VITALS: BP 118/72
[2023-01-12] MEDS: albuterol 2.5 MG/3 ML nebule NEB SCH ×2 (03:00→08:37)
[2023-01-12 08:00] VITALS: BP 100/54
[2023-01-12] MEDS ORDERED: naltrexone 50mg tablet PO SCH (08:00)
[2023-01-12] MEDS: liothyronine sod 5mcg tablet PO SCH (08:28)
[2023-01-12] MEDS: levoTHYROXINE 88mcg tablet PO SCH (08:28)
[2023-01-12] MEDS: budesonide 0.5mg/2ml UD nebule IH SCH (08:38)
[2023-01-12] MEDS ORDERED: NALT50TA PO (09:25)
[2023-01-12] MEDS ORDERED: FLUO20CA46 PO (09:25)
[2023-01-12] MEDS ORDERED: TOP25T PO (09:25)
[2023-01-12] MEDS ORDERED: gabapentin capsule PO (09:25)
[2023-01-12] MEDS ORDERED: GABA300C PO (09:27)
--- NOTE | 2023-01-12 12:30 | NUR ---
Discharge Note: Patient discharged and escorted from unit by staff at noon. Personal belongings reviewed and returned to patient. Discharge instructions reviewed with patient, verbalized understanding. Patient picked up by her son from the main lobby of the hospital. She is alert and oriented, calm and pleasant with no s/s of distress. Personal belongings reviewed and returned to patient. Patient transported by wheelchair from the unit to the main lobby by wheel chair. She left the hospital without incident.
== END 2023-01-12 12:00 | disposition home or self-care (01) | DRG 885 ==
LOC: ADULT MH 15:40
PROVIDERS: ADMIT Psychiatry & Neurology Psychiatry; ATTEND Psychiatry & Neurology Psychiatry
DX: F33.2 Major depressive disorder, recurrent severe without psychotic features (principal); E03.9 Hypothyroidism, unspecified; F10.20 Alcohol dependence, uncomplicated; F43.10 Post-traumatic stress disorder, unspecified; Z88.0 Allergy status to penicillin; Z90.710 Acquired absence of both cervix and uterus; Z90.49 Acquired absence of other specified parts of digestive tract; Z88.8 Allergy status to other drugs, medicaments and biological substances; Z79.899 Other long term (current) drug therapy
CPT/HCPCS: 36415; 80061; 83036; 87081; 94640; 94760

== ENCOUNTER 2023-03-03 12:52 | Emergency (ER) | payer BC ==
[~2023-03-03] VITALS: Ht 160 cm; Wt 50.0 kg
[~2023-03-03 12:52] MED LIST changes: +ADV50250 INH; -FLUO-167 PO; +FLUO20CA46 PO; +NALT50TA PO; +TOP25T PO; -TOPI25TA49 PO
[2023-03-03 13:36] LABS: BASOPHILS # (AUTO) 0.1 X10'3 (0-0.2); BASOPHILS % (AUTO) 0.9 % (0-1); EOSINOPHILS % (AUTO) 0.5 % (0-6); HEMATOCRIT 36.1 % (35.0-45.0); HEMOGLOBIN 12.3 g/dl (12.0-16.0); LYMPHOCYTES # (AUTO) 1.7 X10'3 (1.1-4.8); MEAN CORPUSCULAR HEMOGLOBIN 31.9 PG (27.0-31.0); MEAN PLATELET VOLUME 7.9 FL (7.4-10.4); MONOCYTES # (AUTO) 0.6 X10'3 (0-0.9); MONOCYTES % (AUTO) 9.2 % (2-12); NEUTROPHILS # (AUTO) 3.8 X10'3 (1.8-7.7); NEUTROPHILS % (AUTO) 61.4 % (42-75); PLATELET COUNT 348 X10'3 (140-440); RED BLOOD COUNT 3.84 X10'6 (4.20-5.60); RED CELL DISTRIBUTION WIDTH 12.8 % (11.5-14.5); WHITE BLOOD COUNT 6.2 X10'3 (4.5-11.0)
[2023-03-03 13:47] LABS: ALANINE AMINOTRANSFERASE 37 U/L (12-78); ALBUMIN 3.7 G/DL (3.4-5.0); ALBUMIN/GLOBULIN RATIO 1.3 (1.1-1.5); ALKALINE PHOSPHATASE 72 IU/L (46-116); ANION GAP 10 (8-16); ASPARTATE AMINO TRANSFERASE 32 U/L (10-37); BILIRUBIN,TOTAL 0.3 MG/DL (0.1-1.0); BLOOD UREA NITROGEN 10 MG/DL (7-18); BUN/CREATININE RATIO 16.9 (10.0-20.0); CALCIUM 9.6 MG/DL (8.5-10.1); CHLORIDE 107 MMOL/L (99-107); CREATININE 0.59 MG/DL (0.40-0.90); GLUCOSE 93 MG/DL (70-104); SODIUM 140 MMOL/L (135-145); TOTAL CARBON DIOXIDE 23.1 MMOL/L (24-32); TOTAL PROTEIN 6.6 G/DL (6.4-8.2); eGFR > 90 ML/MIN
[2023-03-03 14:08] LABS: POTASSIUM 3.6 MMOL/L (3.5-5.1)
[2023-03-03] MEDS ORDERED: famotidine 20mg tablet PO ONE (16:50)
[2023-03-03 17:18] VITALS: BP 111/61
== END 2023-03-03 17:21 | disposition home or self-care (01) ==
LOC: ER 12:53
DX: R55 Syncope and collapse (principal); F41.9 Anxiety disorder, unspecified; F32.9 Major depressive disorder, single episode, unspecified; Z90.49 Acquired absence of other specified parts of digestive tract; Z90.710 Acquired absence of both cervix and uterus; Z91.040 Latex allergy status; Z88.0 Allergy status to penicillin; Z88.8 Allergy status to other drugs, medicaments and biological substances; Z79.899 Other long term (current) drug therapy
CPT/HCPCS: 36415; 71045; 80053; 83880; 84484; 85025; 93005; 99285

== ENCOUNTER 2023-12-19 03:19 | Emergency (ER) | payer BC ==
[~2023-12-19] VITALS: Ht 157.5 cm; Wt 45.0 kg
[2023-12-19 06:48] VITALS: BP 118/71; PULSE 82; RESP 16; TEMP 98.2; O2SAT 97
[2023-12-19] MEDS: ibuprofen tablet 400 MG TABLET PO ONE (06:59)
[2023-12-19] MEDS: acetaminophen 325mg tablet PO ONE (06:59)
== END 2023-12-19 07:03 | disposition home or self-care (01) ==
LOC: ER 03:19
DX: S93.402A Sprain of unspecified ligament of left ankle, initial encounter (principal); F41.9 Anxiety disorder, unspecified; F32.A Depression, unspecified; Z90.49 Acquired absence of other specified parts of digestive tract; Z90.710 Acquired absence of both cervix and uterus; Z98.890 Other specified postprocedural states; Z88.0 Allergy status to penicillin; Z91.040 Latex allergy status; Z88.8 Allergy status to other drugs, medicaments and biological substances; Z91.048 Other nonmedicinal substance allergy status; Z79.899 Other long term (current) drug therapy; X58.XXXA Exposure to other specified factors, initial encounter; Y93.89 Activity, other specified; Y92.89 Other specified places as the place of occurrence of the external cause; Y99.8 Other external cause status
CPT/HCPCS: 29540; 73610; 99284; L1930; 29515; A6449